=== PATIENT | female | born 1970 | race Caucasian/White ===

== ENCOUNTER 2024-08-01 07:44 | Outpatient (OUT) | payer MEDICARE, SELFPAY ==
--- NOTE | 2024-08-01 08:00 | CA_ITS ---
Patient Name: GILBERTO PAYAN MR#: [id number] : 1970 Exam Date: 08/01/2024 Ordering Doctor: DR. ZHANNA SALES M.D. ECHOCARDIOGRAM REPORT PROCEDURE: CA ECHO DOPPLER COMPLETE INDICATIONS: Dyspnea on exertion, pacemaker, hypertension, COPD COMPARISON: None. DESCRIPTION: COMPLETE ECHOCARDIOGRAM Real-time transthoracic echocardiography with 2D, M-mode, spectral and color flow Doppler performed. QUALITY: Technical quality was good. LEFT VENTRICLE: Normal chamber size. Normal left ventricular wall thickness. Normal systolic function. LV EF: Normal left ventricular ejection fraction, (55%). DIASTOLIC: Normal diastolic function. ATRIAL SEPTUM: Visually appears intact. LEFT ATRIUM: Normal chamber size. RIGHT ATRIUM: Normal chamber size. RIGHT VENTRICLE: Mildly dilated. Normal systolic function. Pacer wire present. TRICUSPID VALVE: Normal mobility and thickness. No stenosis with mild regurgitation. No evidence of pulmonary hypertension. RVSP 26 mmHg MITRAL VALVE: Normal mobility and thickness. No evidence of mitral valve stenosis. There is no mitral annular calcification. Trivial mitral regurgitation. AORTIC VALVE: Normal trileaflet appearance. No visible sclerosis. Normal leaflet mobility. No evidence of aortic valve stenosis. No aortic regurgitation. AORTIC ROOT: Normal diameter and appearance, measuring 3.0 cm. Ascending aorta is normal in size, measuring 2.6 cm. PULMONIC VALVE: Normal thickness and mobility. No stenosis. Trivial regurgitation. PERICARDIUM: No evidence of pericardial effusion. IVC: IVC is normal in size, does not fully collapse. PLEURA: CONCLUSION: 1. Normal left ventricular size and systolic function. Estimated LVEF is 55%. 2. Mildly dilated right ventricle with normal systolic function. 3. Mild tricuspid regurgitation. 4. Normal right-sided pressures. Adult Echocardiography Procedure Report Left Ventricle LVEDD (3.7 - 5.6 cm): 3.93 cm LVESD (2.2 - 4.0 cm): 2.54 cm LVIVS thickness (0.6 - 1.2 cm): 0.96 cm LVPW thickness (0.5 - 1.0 cm): 0.90 cm e': 0.12 m/s E - e': 5.65 LVOT Max Gradient: 2.59 mm[Hg] LVOT Area (cm2): 0.80 m/s Peak Velocity (LVOT): 0.80 m/s Mean Velocity (LVOT): 0.54 m/s LVOT Diameter 1.89 cm Left Atrium LA Volume Index (2D A2C): 18.75 ml/m2 Left Atrium Systolic Dimension: 3.17 cm Mitral Valve MV E to A Ratio: 1.14 Mitral Valve A-Wave Peak Velocity: 0.57 m/s Mitral Valve E-Wave Peak Velocity: 0.65 m/s Right Ventricle Aorta AO Root Diam: 3.05 cm Ascending Ao Diam: 2.60 cm Aortic Valve AoV Area (Peak Brad): 2.29 cm2, 2.29 cm2 AoV Area (VTI): 2.04 cm2, 2.04 cm2 Peak Velocity(Antegrade Flow): 0.98 m/s Peak Gradient(Antegrade Flow): 3.87 mm[Hg] Mean Velocity(Antegrade Flow): 0.71 m/s Mean Gradient(Antegrade Flow): 2.23 mm[Hg] Velocity Time Integral: 22.20 cm Tricuspid Valve Peak Velocity (Regurgitant Flow): 2.14 m/s Pulmonic Valve Mean Gradient: 1.46 mm[Hg] Mean Velocity: 0.56 m/s Peak Velocity: 0.85 m/s, 0.83 m/s Peak Gradient: 2.73 mm[Hg], 2.91 mm[Hg] Right Atrium Right Atrium Systolic Pressure: 42.02 ml, 42.02 ml Dictated by: Joel Cason M.D. on 08/01/2024 at 19:32 Approved by: Joel Cason M.D. on 08/01/2024 at 19:36
== END 2024-08-01 07:45 | disposition home or self-care (01) ==
LOC: CARD 07:44
PROVIDERS: PCP Nurse Practitioner Family; Visit Provider Internal Medicine Cardiovascular Disease
DX: R06.09 Other forms of dyspnea (principal)
CPT/HCPCS: 93306

== ENCOUNTER 2024-08-08 09:14 | Outpatient (OUT) | payer MEDICARE, SELFPAY ==
--- OUTSIDE RECORDS SUMMARY | 2024-08-08 09:33 | XMS_ITS | CCD ---
Author Organization [facility] Inform ion Partnership [facility] Care Team Providers Care Professional Services Consultant Name Role Phone Jhoana Macias Attending Unavailable Dominic Donnelly Primary Care Provider [phone] LJ PATEL Referring Unavailable DOMINIC DONNELLY Primary Care Unavailable MCKAYLA, EUGENE S Admitting Unavailable MCKAYLA, EUGENE S Attending Unavailable DOMINIC DONNELLY Primary Care Unavailable DOMINIC DONNELLY Primary Care Unavailable ARIELLE REED Attending Unavailable ARIELLE REED Admitting Unavailable DOMINIC DONNELLY Referring Unavailable BIBI, DR ALFARO Primary Care Unavailable REINECK, DR CHANG Hawkins Admitting Unavailabl e REINECK, DR CHANG Hawkins Attending Unavailabl e [place] ., ZAFAR NOLASCO Consulting Unavailabl e ISMAEL MOYER Consulting Unavailable MCKAYLA, EUGENE S Referring Unavailable PCP, NOT IN SYSTEM Primary Care Unavailable MCKAYLA, EUGENE S Referring Unavailable PCP, NOT IN SYSTEM Primary Care Unavailable Shani Gama DO G Unavailable Marietta Ruvalcaba MD Primary Care Provider Jaqueline Yost NP Unavailable Pcp, Not In System Primary Care Provider Unavail able PCP, NOT IN SYSTEM Primary Care Unavailable AMINA BETTS Attending Unavailable PCP, NOT IN SYSTEM Primary Care Unavailable Dominic Donnelly Primary Care Provider JIMBO OZUNA Attending Unavailable JIMBO OZUNA Referring Unavailable DOMINIC DONNELLY Primary Care Unavailabl e Lanette LAIRD Shani G Unavailable ZHANNA SALES Attending Unavailable JAQUELINE YOST Attending Unavailab JAQUELINE Pham Attending UnavailJAQUELINE Watts Referring JAQUELINE Cruz Attending [place] Allergies Allergy Classification Reported Allergen(s) Allergy Type Date of Onset Reaction(s) Facility (1 source) 06667,00; Translations: [47987,00] Propensity to adverse reactions (disorder) 9 [facility] Repository (4 sources) Vancomycin; Translations: [VANCOMYCIN HCL] Drug Allergy 2 Rash [facility] Repository (11 sources) Vancomycin Drug Allergy 2 Rash [facility] Medications Current Medications Medication Drug Class(es) Dates Sig (Normalized) Sig (Original) acetaminophen 325 mg / HYDROcodone bitartrate 5 mg oral tablet (4 sources) Opioid Agonist Start: 06-09-2020 End: 06-12-2020 take 1 tablet by mouth every six hours as needed for pain HYDROcodone-aceta minophen (NORCO) 5-325 MG per tablet Indications: Post-operative pain Take 1 tablet by mouth every 6 hours as needed for Pain for up to [address] Alex 12 tablet 0 06/09/2020 06/12/2020 Active Start: 06-09-2020 End: 06-09-2020 HYDROcodone-acetaminophen (N ORCO) 5-325 MG per tablet 1 tablet Start: 05-27-2020 End: 06-09-2020 HYDROcodone-acetaminophen (N ORCO) 5-[address] Alex 0 05/27/2020 06/09/2020 Discontinued (REORDER) amLODIPine 5 mg oral tablet (11 sources) Dihydropyridine Calcium Channel Eliseo Start: 11-15-2022 amLODIPine (Norvasc) 5 MG tablet 11/15/2022 Active atropine sulfate 0.025 mg / diphenoxylate hydrochloride 2.5 mg oral tablet (16 sources) Anticholinergic, Cholinergic Muscarinic Antagonist, Antidiarrheal Start: 02-26-2012 take 2 tablets by mouth every six hours as needed diphenoxylate-at ropine (LOMOTIL) 2.5-0.025 mg per tablet Take 2 tablets by mouth four times daily as needed. 240 tablet 4 02/26/2012 Active Start: 02-26-2012 End: 06-04-2020 take 2 tablets by mouth once diphenoxylate-atropine (LOMOTIL) 2.5-0.025 MG per tablet Take 2 tablets by mouth. 0 02/26/2012 06/04/2020 Discontinued (Therapy completed) 60 actuat budesonide 0.16 mg/actuat / formoterol fumarate 0.0045 mg/actuat metered dose inhaler (13 sources) Corticosteroid, beta2-Adrenergic Agonist budesonide-form oterol (Symbicort) 160-4.5 MCG/ACT inhaler Inhale 2 puffs. Active take 2 puff(s) by in halation twice daily as needed budesonide-formoterol (SYMBICORT) 160-4. 5 MCG/ACT AERO Inhale 2 puffs into the lungs [address] Donnelly 0 Active calcium chloride 0.0014 meq/ml / potassium chloride 0.004 meq/ml / sodium chloride 0.103 meq/ml / sodium lactate 0.028 meq/ml injectable solution (2 sources) Start: 06-09-2020 lactated ringers infusion cholecalciferol 0.05 mg oral capsule (13 sources) Vitamin D Start: 04-05-2023 End: 04-04-2024 take 1 capsule by mouth every week Cholecalciferol (Vitamin D) 50 MCG (2000 UT) capsule Indications: Vitamin D deficiency Take 1 capsule (50 mcg) by mouth 1 (one) time per week 14 capsule 3 03/12/2024 Active Cimetidine (2 sources) Histamine-2 Receptor Antagonist Cimetidine (TAGAMET PO) Take by mouth Prn otc rarely takes 0 Active ciprofloxacin 500 mg oral tablet (1 source) Quinolone Antimicrobial Start: 06-09-2020 End: 06-12-2020 take 1 tablet by mouth twice daily ciprofloxacin (CIPRO) 500 MG tablet Take 1 tablet by mouth 2 times daily for 3 days 6 tablet 0 06/09/2020 06/12/2020 Active 2 ml fentaNYL 0.05 mg/ml injection (2 sources) Opioid Agonist Start: 06-09-2020 End: 06-09-2020 fentaNYL (SUBLIMAZE) injection 25 mcg hydroCHLOROthiazide 12.5 mg oral tablet (11 sources) Thiazide Diuretic take 1 tablet by mouth in the morning hydroCHLOROthiazide (HYDRODiuril) 12.5 MG tablet Take 1 tablet by mouth in the morning. Active hydrOXYzine hydrochloride 25 mg oral tablet (1 source) Antihistamine Start: 06-25-2024 take 1 tablet by mouth three times daily as needed for anxiety hydrOXYzine HCl (Atarax) 25 MG tablet Indications: Anxiety Take 1 tablet (25 mg) by mouth 3 (three) times a day as needed for anxiety 21 tablet 06/25/2024 Active ibuprofen 800 mg oral tablet (3 sources) Nonsteroidal Anti-inflammatory Drug Start: 03-12-2015 End: 06-04-2020 ibuprofen (ADVIL,MOTRIN) 800 mg tablet Take 1 tablet (800 mg total) by mouth as needed. 03/12/2015 Active levothyroxine sodium 0.088 mg oral tablet (19 sources) l-Thyroxine Start: 06-27-2024 take 1 tablet by mouth once daily levothyroxine (Synthroid) 88 MCG tablet Indications: Acquired hypothyroidism (CMS/HCC) Take 1 tablet (88 mcg) by mouth Daily Take on an empty stomach 30 tablet 06/27/2024 Active Start: 03-17-2024 End: 06-27-2024 take 1 tablet by mouth before mealtime levothyroxine (Synthroid) 88 MCG tablet Indications: Acquired hypothyroidism (CMS/HCC) Take 1 tablet (88 mcg) by mouth in the morning. Take before meals. 90 tablet 03/17/2024 06/27/2024 Discontinued (Reorder) Start: 04-05-2023 End: 04-04-2024 take 1 tablet by mouth before mealtime levothyroxine (Synthroid) 112 MCG tablet Indications: Acquired hypothyroidism (CMS/HCC) Take 1 tablet (112 mcg) by mouth in the morning. Take before meals. 90 tablet 3 04/05/2023 03/17/2024 Discontinued (Ineffective) Start: 06-16-2014 End: 05-15-2024 levothyroxine (SYNTHROID, LEVOTHROID) 125 MCG tablet Take by mouth. 06/16/2014 05/15/2024 Discontinued (Dose adjustment) Start: 08-24-2008 levothyroxine sodium(SYNTHROID 100 MCG TAB) Take 88 mcg by mouth. 0 08/24/2008 Active 10 ml lidocaine hydrochloride 10 mg/ml injection (1 source) Antiarrhythmic, Amide Local Anesthetic Start: 06-09-2020 End: 06-09-2020 lidocaine PF 1 % injection 1 mL lisinopril 10 mg oral tablet (11 sources) Angiotensin Converting Enzyme Inhibitor lisinopril 10 MG tablet 1 (one) time each day at the same time. Active 1 ml meperidine hydrochloride 50 mg/ml injection (1 source) Opioid Agonist Start: 06-09-2020 meperidine (DEMEROL) injection 12.5 mg 24 hr metoprolol succinate 25 mg extended release oral tablet (20 sources) beta-Adrenergic Eliseo Start: 05-26-2024 take 1 tablet by mouth once daily metoprolol succinate ER (TOPROL XL) 25 mg 24 hr tablet Take 1 tablet by mouth once daily. 05/26/2024 Active Start: 05-15-2024 End: 05-15-2025 take 4 tablets by mouth every twenty-four hours in the morning metoprolol succinate XL (TOPROL XL) 25 mg 24 hr tablet Take 4 tablets (100 mg total) by mouth in the morning. 360 tablet 3 05/15/2024 05/15/2025 Active Start: 11-15-2022 End: 05-26-2024 take 1 tablet by mouth in the morning metoprolol tartrate (Lopressor) 100 MG tablet Take 100 mg by mouth in the morning. 11/15/2022 Active Start: 06-10-2015 End: 06-04-2020 metoprolol (LOPRESSOR) 100 M G tablet Start: 08-24-2008 End: 05-26-2024 metoprolol succinate(TOPROL XL 100 MG 24 HR TAB) take 1 tablet 2 times daily. 0 08/24/2008 05/26/2024 Discontinued omeprazole 40 mg delayed release oral capsule (16 sources) Proton Pump Inhibitor Start: 04-04-2023 take 1 capsule by mouth before mealtime omeprazole (PriLOSEC) [address] capsule Indications: Gastroesophageal reflux disease, unspecified whether esophagitis present Take 1 capsule (40 mg) by mouth in the morning. Take before meals. Do not crush or chew. . 90 capsule 3 04/04/2023 Active Start: 04-04-2023 End: 05-26-2024 take 1 capsule by mouth before mealtime omeprazole (PriLOSEC) [address] capsule Indications: Gastroesophageal reflux disease, unspecified whether esophagitis present Take 1 capsule (40 mg) by mouth in the morning. Take before meals. Do not crush or chew. . 90 capsule 3 04/04/2023 Active ondansetron 4 mg disintegrating oral tablet (11 sources) Serotonin-3 Receptor Antagonist Start: 07-05-2022 ondansetron ODT (Zofran-ODT) 4 MG disintegrating tablet 07/05/2022 Active rosuvastatin calcium 10 mg oral tablet (13 sources) HMG-CoA Reductase Inhibitor Start: 11-15-2022 End: 05-15-2024 take 1 tablet by mouth in the morning rosuvastatin (Crestor) 10 MG tablet Take 10 mg by mouth in the morning. 11/15/2022 Active 72 hr scopolamine 0.0139 mg/hr transdermal system (1 source) Anticholinergic Start: 06-09-2020 scopolamine (TRANSDERM-SCOP) transdermal patch 1 patch 3 ml sodium chloride 9 mg/ml injection (2 sources) Start: 06-09-2020 sodium chloride flush 0.9 % injection 10 mL sucralfate 1000 mg oral tablet (9 sources) Aluminum Complex Start: 05-01-2024 take 1 tablet by mouth at bedtime sucralfate (Carafate) 1 g tablet Indications: History of stomach ulcers Take 1 tablet (1 g) by mouth in the morning and 1 tablet (1 g) at noon and 1 tablet (1 g) in the evening and 1 tablet (1 g) before bedtime. Take before meals. 120 tablet 11 05/01/2024 Active tamsulosin hydrochloride 0.4 mg oral capsule (2 sources) alpha-Adrenergic Eliseo Start: 05-27-2020 tamsulosin (FLOMAX) 0.[address] Alex 0 05/27/2020 Active terbinafine 250 mg oral tablet (12 sources) Allylamine Antifungal Start: 03-19-2023 take 1 tablet by mouth once daily terbinafine (LamISIL) 250 MG tablet Indications: Onychomycosis Take 1 tablet, by mouth, once daily 90 tablet 03/19/2023 Active Start: 05-17-2015 End: 06-04-2020 terbinafine (LAMISIL) 250 MG tablet Completed/Discontinued Medications Medication Drug Class(es) Dates Sig (Normalized) Sig (Original) amitriptyline hydrochloride 25 mg oral tablet (3 sources) Tricyclic Antidepressant Start: 02-26-2012 End: 05-26-2024 take 1 tablet by mouth once daily at bedtime amitriptyline 25 mg tablet Take 1 tablet by mouth daily at bedtime. 30 tablet 5 02/26/2012 05/26/2024 Discontinued cyclobenzaprine hydrochloride 10 mg oral tablet (1 source) Muscle Relaxant Start: 06-17-2015 End: 06-04-2020 cyclobenzaprine (FLEXERIL) 10 MG tablet esomeprazole 40 mg delayed release oral capsule (2 sources) Proton Pump Inhibitor Start: 10-26-2008 End: 05-26-2024 take 1 capsule by mouth twice daily esomeprazole mag trihydrate(NEXIUM 40 MG CAP) Take one(1) capsule po twice daily 60 5 10/26/2008 05/26/2024 Discontinued famotidine 20 mg oral tablet (3 sources) Histamine-2 Receptor Antagonist Start: 08-24-2008 End: 05-26-2024 famotidine(PEPCID 20 MG TAB) Take one(1) tablet daily. 0 08/24/2008 05/26/2024 Discontinued 2 ml midazolam 1 mg/ml injection (1 source) Benzodiazepine Start: 06-09-2020 End: 06-09-2020 midazolam PF (VERSED) injection 1 mg 24 hr oxybutynin chloride 10 mg extended release oral tablet (1 source) Cholinergic Muscarinic Antagonist Start: 08-31-2014 End: 06-04-2020 take 1 tablet by mouth once daily oxybutynin (DITROPAN-XL) 10 MG CR tablet Indications: Nocturia , Urgency of urination , Frequency of urination Take 1 tablet by mouth daily. 30 tablet 6 08/31/2014 06/04/2020 Discontinued raNITIdine 150 mg oral tablet (5 sources) Histamine-2 Receptor Antagonist End: 05-15-2024 take 1 tablet by mouth in the morning, then take 1 tablet by mouth at bedtime raNITIdine (ZANTAC) 150 mg tablet Take 1 tablet (150 mg total) by mouth in the morning and 1 tablet (150 mg total) before bedtime. 05/15/2024 Discontinued (Alternate therapy) End: 03-12-2024 raNITIdine HCl (ZANTAC 75 PO ) Take by mouth. 03/12/2024 Discontinued (Therapy completed) raNITIdine HCl ( ZANTAC 75 PO) Take by mouth. Active Problems Active Problems Problem Classification Problem Date Documented Da te Episodic/Chronic Calculus of urinary tract (1 source) Calculus of kidney; Translations: [Calculus of kidney] Onset: 4 Episodic Cardiac dysrhythmias (20 sources) Sick sinus syndrome; Translations: [Sick sinus syndrome] Onset: 2 01-10-2023 Chronic Cardiac dysrhythmias (2 sources) Palpitations; Translations: [Palpitations] Onset: 5 Episodic Chronic obstructive pulmonary disease and bronchiectasis (20 sources) Acute exacerbation of bronchiectasis; Translations: [Bronchiectasis with (acute) exacerbation] Onset: 1 Resolved: 4 01-10-2023 Chronic Conduction disorders (20 sources) Presence of cardiac pacemaker; Translations: [Pacemaker battery depletion] Onset: 2 01-10-2023 Chronic Disorders of lipid metabolism (20 sources) Dyslipidemia; Translations: [Hyperlipidemia, unspecified] Onset: 1 01-10-2023 Chronic Esophageal disorders (18 sources) Gastroesophageal reflux disease; Translations: [Gastro-esophageal reflux disease without esophagitis] Onset: 6 01-10-2023 Chronic Essential hypertension (20 sources) Essential hypertension; Translations: [Essential (primary) hypertension] Onset: 3 01-10-2023 Chronic Fever of unknown origin (4 sources) Fever, unspecified; Translations: [FEVER UNSPECIFIED] Onset: 3 Episodic Gastroduodenal ulcer (except hemorrhage) (2 sources) H/O: gastric ulcer; Translations: [Personal history of peptic ulcer disease] 05-01-2024 Episodic Headache; including migraine (13 sources) Migraine without aura, not refractory ; Translations: [Migraine without aura, not intractable, without status migrainosus] Onset: 7 01-10-2023 Chronic Miscellaneous mental health disorders (6 sources) Bulimia nervosa; Translations: [Bulimia] 05-01-2024 Chronic Mood disorders (13 sources) Depressive disorder; Translations: [Depressive disorder] Onset: 3 01-10-2023 Chronic Nonspecific chest pain (1 source) Chest pain Onset: 4 Episodic Nutritional deficiencies (13 sources) Vitamin D deficiency; Translations: [Vitamin D deficiency, unspecified] Onset: 2 01-10-2023 Chronic Other diseases of kidney and ureters (13 sources) Renal mass; Translations: [Other specified disorders of kidney and ureter] Onset: 3 01-10-2023 Chronic Other gastrointestinal disorders (2 sources) Abdominal bloating; Translations: [Abdominal distension (gaseous)] 05-26-2024 Episodic Other gastrointestinal disorders (1 source) Abdominal distension (gaseous); Translations: [Bloating] Onset: 5 Episodic Other lower respiratory disease (2 sources) Other forms of dyspnea; Translations: [Other forms of dyspnea] Onset: 5 Episodic Other nervous system disorders (13 sources) Chronic pain; Translations: [Other chronic pain] Onset: 9 01-10-2023 Chronic Other nervous system disorders (1 source) Postoperative pain ; Translations: [Post-operative pain] Episodic Residual codes; unclassified (11 sources) Sleep apnea; Translations: [Sleep apnea, unspecified] Onset: 1 01-10-2023 Chronic Residual codes; unclassified (2 sources) Obstructive sleep apnea syndrome; Translations: [Obstructive sleep apnea (adult) (pediatric)] 03-12-2024 Chronic Residual codes; unclassified (2 sources) Sleep apnea, unspecified; Translations: [Sleep apnea, unspecified] Onset: 3 Chronic Residual codes; unclassified (2 sources) History of excision of intestinal structure; Translations: [Acquired absence of other specified parts of digestive tract] 03-12-2024 Episodic Spondylosis; intervertebral disc disorders; other back problems (15 sources) Prolapsed thoracic intervertebral disc; Translations: [Other intervertebral disc displacement, thoracic region] Onset: 9 01-10-2023 Chronic Substance-related disorders (20 sources) Light cigarette smoker; Translations: [Nicotine dependence, cigarettes, uncomplicated] Onset: 1 Resolved: 4 01-10-2023 Chronic Thyroid disorders (18 sources) Acquired hypothyroidism; Translations: [Hypothyroidism, unspecified] Onset: 7 01-10-2023 Chronic Unclassified (1 source) Patient encounter status; Translations: [Preoperative testing] Unclassified (1 source) Device Check Onset: 4 Unclassified (1 source) Med Refill Onset: 4 Urinary tract infections (1 source) Urinary tract infection, site not specified; Translations: [UTI SITE NOT SPECIFIED] Onset: 3 Episodic Viral infection (1 source) COVID-19; Translations: [COVID-19] Onset: 3 Past or Other Problems Problem Classification Problem Date Documented Da te Episodic/Chronic Abdominal pain (19 sources) Abdominal pain; Translations: [Unspecified abdominal pain] Onset: 2 08-31-2014 Episodic Acute bronchitis (11 sources) Acute bronchitis; Translations: [Acute bronchitis, unspecified] Onset: 2 Resolved: 4 01-10-2023 Episodic Bacterial infection; unspecified site (20 sources) History of methicillin resistant Staphylococcus aureus infection; Translations: [Personal history of Methicillin resistant Staphylococcus aureus infection] Onset: 9 Resolved: 4 01-10-2023 Episodic Blindness and vision defects (13 sources) Visual hallucinations; Translations: [Visual hallucinations] Onset: 3 01-10-2023 Episodic Complication of device; implant or graft (11 sources) Pain; Translations: [Pain due to cardiac prosthetic devices, implants and grafts, initial encounter] Onset: 3 Resolved: 4 01-10-2023 Episodic Fluid and electrolyte disorders (11 sources) Hypokalemia; Translations: [Hypokalemia] Onset: 4 Resolved: 4 01-10-2023 Episodic Headache; including migraine (11 sources) Headache; Translations: [Headache] Onset: 3 Resolved: 4 01-10-2023 Episodic Lymphadenitis (11 sources) Lymphadenopathy; Translations: [Generalized enlarged lymph nodes] Onset: 1 Resolved: 4 01-10-2023 Episodic Malaise and fatigue (13 sources) Fatigue; Translations: [Other fatigue] Onset: 3 01-10-2023 Episodic Nausea and vomiting (13 sources) Nausea and vomiting; Translations: [Nausea with vomiting, unspecified] Onset: 3 01-10-2023 Episodic Other connective tissue disease (11 sources) Pain in limb; Translations: [Pain in unspecified limb] Onset: 3 Resolved: 4 01-10-2023 Episodic Other diseases of kidney and ureters (13 sources) Acquired renal cystic disease; Translations: [Cyst of kidney, acquired] Onset: 1 01-10-2023 Episodic Other gastrointestinal disorders (17 sources) Diarrhea; Translations: [Diarrhea, unspecified] Onset: 2 08-31-2014 Episodic Other lower respiratory disease (11 sources) Hypoxemia; Translations: [Hypoxemia] Onset: 1 Resolved: 4 01-10-2023 Episodic Other nervous system disorders (11 sources) Difficulty walking; Translations: [Difficulty in walking, not elsewhere classified] Onset: 3 Resolved: 4 01-10-2023 Chronic Other nervous system disorders (11 sources) Walking disability; Translations: [Difficulty in walking, not elsewhere classified] Onset: 7 Resolved: 4 01-10-2023 Chronic Other nutritional; endocrine; and metabolic disorders (15 sources) Weight loss; Translations: [Abnormal weight loss] Onset: 2 Resolved: 4 08-31-2014 Episodic Other nutritional; endocrine; and metabolic disorders (11 sources) Loss of appetite; Translations: [Anorexia] Onset: 1 Resolved: 4 01-10-2023 Episodic Other skin disorders (13 sources) Localized swelling, mass and lump, right upper limb; Translations: [Localized superficial swelling, mass, or lump] Onset: 3 Resolved: 4 01-10-2023 Episodic Other upper respiratory infections (11 sources) Acute recurrent maxillary sinusitis; Translations: [Acute maxillary sinusitis] Onset: 7 Resolved: 4 01-10-2023 Episodic Residual codes; unclassified (13 sources) Family history of endocrine disorders; Translations: [Family history of other endocrine, nutritional and metabolic diseases] Onset: 1 01-10-2023 Episodic Residual codes; unclassified (15 sources) Family history of breast cancer; Translations: [Family history of malignant neoplasm of breast] Onset: 3 01-10-2023 Episodic Residual codes; unclassified (13 sources) Family history of malignant neoplasm of gastrointestinal tract; Translations: [Family history of malignant neoplasm of digestive organs] Onset: 7 01-10-2023 Episodic Syncope (11 sources) Syncope and collapse; Translations: [Syncope and collapse] Onset: 1 Resolved: 4 01-10-2023 Episodic Unclassified (2 sources) History of excision of intestinal structure 03-12-2024 Results Test Name Value Interpretation Reference Range Facility 36on 07-30-2024 36 Patient called with BP readings: 134/71 (AM) 148/85 (PM) 118/76 (AM) 140/79 (PM) 123/79 (AM) 136/82 (PM) 123/72 (AM) 126/78 (PM) 125/79 (AM) 144/87 (PM) 164/97 She said HR ranges between 92-109. Normal [facility] Follow-Upon 07-21-2024 Follow-Up [id number] Gilberto Payan 1970 F Date Provider Department Center 07/21/2024 [id number] SALES IRVIN [facility] Family History Problem Relation Age of Onset Heart disease Mother Thyroid nodules Mother Atrial fibrillation Mother Diabetes Father Family Status - Relation Status Age at Mother Father Level of Service:94318 [place] OFFICE/OUTPATIENT NEW MODERATE MDM 45 MINUTES Reason for Visit and Comments: Hypertension [721327] - Says BP has been elevated lately. Had routine labs with lipid panel in Feb 2024. SSS [Other] - PPM was interrogated in Apr 2024 at [facility]. Shortness of Breath [160870] - ONLY with exertion, which in worsening. Muscle Pain [403854] - C/o LE muscle cramps at night. Normal [facility] XR ABDOMEN 2 VIEWon 03-12-20 24 XR ABDOMEN 2 VIEW EXAM: XR Abdomen, Four Views. REASON FOR EXAM: Bloating with abomen pain. COMPARISON: None FINDINGS: Four images. Postprocedural changes of the lower chest. No free air under the hemidiaphragm or organomegaly. Cholecystectomy clips in the right upper quadrant. Postsurgical clips throughout the abdomen. Moderate amount stool present throughout the course of the colon. No small bowel dilatation or definite mass effect. Distal gas is present. Degenerative changes of the spine. There is diffuse atherosclerosis. Bone island or soft tissue calcification over the right side of the sacrum. IMPRESSION: 1. Nonobstructive bowel gas pattern. 2. Moderate amount stool in the right colon. 3. Status post cholecystectomy. 4. Postoperative changes throughout the abdomen. This report is generated using voice recognition reporting ([employer]). On occasion, [employer] erroneously drops words from the report or replaces the spoken word with a similar sounding word. Please call with any questions/concerns regarding the report. Dictated and transcribed 03/12/2024/tm This report has been electronically signed and approved by the interpreting radiologist. Electronically Signed Josh Raya II, M.D. 2024-03-12 16:30:20 Normal Not Available URINE CULTUREon 09-19-2023 Bacteria identified Cx Nom (U) CULTURE RESULTS NO GROWTH AT <1000 CFU/mL Normal [facility] Comment on above: Performed By: #### 6 30-4 #### [facility] ([id number]) [address] [place] [address], [address] [place] [address] XR ABDOMEN AP 1 VWon 024 XR ABDOMEN AP 1 VW XR ABDOMEN AP 1 VW Abdomen single view Clinical history: Kidney stone Impression: * Appropriate bowel pattern. No acute findings. Equivocal 3 mm stone projecting to the right of L4 vertebra. No other definite urinary tract stone identified compared with November 23, 2015 Finalized by Anurag Gallardo MD on 09/19/2023 5:28 PM Normal [facility] CBC AUTO DIFFon 07-05-2022 BASO # 0.0 103/ul Normal 0.0-0.1 [facility] Comment on above: Performed By: #### I NFLUAB #### [facility] [address] [address] [address] Leisa Oakes Basophils/100 WBC (Bld) 0.3 % Normal 0.2-2.0 [facility] Comment on above: Performed By: #### I NFLUAB #### [facility] [address] [place] [address] Dr. Leisa Oakes EO # 0.0 103/ul Normal 0.0-0.7 [facility] Comment on above: Performed By: #### I NFLUAB #### [facility] [address] [place] [address] Dr. Leisa Oakes Eosinophils/100 WBC (Bld) 0.3 % Critically low 0.9-7.0 [facility] Comment on above: Performed By: #### I NFLUAB #### [facility] [address] [place] [address] Dr. Leisa Oakes Erythrocyte distribution width (RBC) [Ratio] 11.8 % Normal 11.0-15.0 [facility] Comment on above: Performed By: #### I NFLUAB #### [facility] [address] [place] [address] Dr. Leisa Oakes Hematocrit (Bld) [Volume fraction] 39.1 % Normal 36.0-48.0 [facility] Comment on above: Performed By: #### I NFLUAB #### [facility] [address] [place] [address] Dr. Leisa Oakes Hemoglobin (Bld) [Mass/Vol] 12.9 g/dL Normal 12.0-16.0 [facility] Comment on above: Performed By: #### I NFLUAB #### [facility] [address] [place] [address] Dr. Leisa Oakes IG # 0.01 10e3/ul Normal 0.00-0.03 [facility] Comment on above: Performed By: #### I NFLUAB #### [facility] [address] [place] [address] Dr. Leisa Oakes IG % 0.3 % Normal 0.0-0.5 [facility] Comment on above: Performed By: #### I NFLUAB #### [facility] [address] [place] [address] Dr. Leisa Oakes LYMPH # 0.3 103/ul Critically low 1.2-3.8 [facility] Comment on above: Performed By: #### I NFLUAB #### [facility] [address] [place] [address] Dr. Leisa Oakes Lymphocytes/100 WBC (Bld) 10.5 % Critically low 20.5-60.0 [facility] Comment on above: Performed By: #### I NFLUAB #### [facility] [address] [place] [address] Dr. Leisa Oakes MANUAL DIFF REQ NO Normal [facility] Comment on above: Performed By: #### I NFLUAB #### [facility] [address] [place] [address] Dr. Leisa Oakes MCH (RBC) [Entitic mass] 31.3 pg Normal 26.7-34.0 [facility] Comment on above: Performed By: #### I NFLUAB #### [facility] [address] [place] [address] Dr. Leisa Oakes MCHC (RBC) [Mass/Vol] 33.0 g/dL Normal 29.9-35.2 [facility] Comment on above: Performed By: #### I NFLUAB #### [facility] [address] [place] [address] Dr. Leisa Oakes MCV (RBC) [Entitic vol] 94.9 fL Normal 81.0-99.0 [facility] Comment on above: Performed By: #### I NFLUAB #### [facility] [address] [place] [address] Dr. Leisa Oakes MONO # 0.4 103/ul Normal 0.3-0.8 [facility] Comment on above: Performed By: #### I NFLUAB #### [facility] [address] [place] [address] Dr. Leisa Oakes Monocytes/100 WBC (Bld) 12.7 % Critically high 1.7-12.0 [facility] Comment on above: Performed By: #### I NFLUAB #### [facility] [address] [place] [address] Dr. Leisa Oakes NEUT # 2.3 103/ul Normal 1.4-6.5 [facility] Comment on above: Performed By: #### I NFLUAB #### [facility] [address] [place] [address] Dr. Leisa Oakes Neutrophils/100 WBC (Bld) 75.9 % Critically high 43.0-75.0 [facility] Comment on above: Performed By: #### I NFLUAB #### [facility] [address] [place] [address] Dr. Leisa Oakes Platelet mean volume (Bld) [Entitic vol] 9.5 fL Normal 9.5-13.5 [facility] Comment on above: Performed By: #### I NFLUAB #### [facility] [address] [place] [address] Dr. Leisa Oakes PLT 196 103/ul Normal 150-450 [facility] Comment on above: Performed By: #### I NFLUAB #### [facility] [address] [place] [address] Dr. Leisa Oakes RBC 4.12 106/ul Critically low 4.20-5.40 [facility] Comment on above: Performed By: #### I NFLUAB #### [facility] [address] [place] [address] Dr. Leisa Oakes WBC 3.1 103/ul Critically low 4.0-11.0 [facility] Comment on above: Performed By: #### I NFLUAB #### [facility] [address] [place] [address] Dr. Leisa Oakes CULTURE BLOODon 07-05-2022 Microscopic examination of blood, culture Culture Observations: NO GROWTH AT 5 DAYS. Isolate 1 [id number] Normal [facility] Comment on above: Performed By: #### I NFLUAB #### [facility] [address] [place] [address] Dr. Leisa Oakes Microscopic examination of blood, culture Culture Observations: NO GROWTH AT 5 DAYS. Normal [facility] Comment on above: Performed By: #### B [id number] #### [facility] [address] [place] [address] Dr. Leisa Oakes CULTURE URINEon 07-05-2022 CULTURE URINE Culture Observations : LIGHT GROWTH OF MIXED GENITAL DAVIAN. NO POTENTIAL PATHOGENS SEEN. Normal [facility] Comment on above: Performed By: #### I NFLUAB #### [facility] [address] [place] [address] Dr. Leisa Oakes Covid-19 PCR ([facility])on 06-21 SARS-CoV-2 (COVID-19) RNA JOE+probe Ql (Unsp spec) Detected Abnormal NOT DETECTED [facility] Comment on above: Result Comment: This test is not yet approved or cleared by the [place] FDA. When there are no FDA-approved or cleared tests available, and other criteria are met, FDA can make tests available under an emergency access mechanism called an Emergency Use Authorization (EUA). The EUA for this test is supported by the Dialysis Patient Care Technician of Health and Human Service's declaration that circumstances exist to justify the emergency use of in vitro diagnostics for the detection and/or diagnosis of the virus that causes COVID-19. This EUA will remain in effect for the duration of the COVID-19 declaration justifying emergency of IVDs, unless it is terminated or revoked by the FDA (after which the test may no longer be used). Performed By: #### C VDTBH #### [facility] [address] [place] [address] Dr. Leisa Oakes ER URINE PROFILEon 3 Bilirubin Ql (U) Negative Normal NEGATIVE [facility] Comment on above: Performed By: #### U MICRO, ERUR #### [facility] [address] [place] [address] Dr. Leisa Oakes Clarity (U) CLEAR Normal CLEAR [facility] Comment on above: Performed By: #### U MICRO, ERUR #### [facility] [address] [place] [address] Dr. Leisa Oakes Color (U) LT. YELLOW Normal YELLOW [facility] Comment on above: Performed By: #### U MICRO, ERUR #### [facility] [address] [place] [address] Dr. Leisa Oakes ERUAHD A micrscopic examination will be performed if indicated. Normal [facility] Comment on above: Performed By: #### U MICRO, ERUR #### [facility] [address] [address] [address] Leisa Oakes Glucose Ql (U) Negative Normal NEGATIVE [facility] Comment on above: Performed By: #### U MICRO, ERUR #### [facility] [address] [address] [address] Leisa Oakes Hemoglobin Ql (U) Negative Normal NEGATIVE [facility] Comment on above: Performed By: #### U MICRO, ERUR #### [facility] [address] [address] [address] Leisa aOkes Ketones Ql (U) Negative Normal NEGATIVE [facility] Comment on above: Performed By: #### U MICRO, ERUR #### [facility] [address] [place] [address] Dr. Leisa Oakes LEUKOCYTES TRACE Abnormal NEGATIVE [facility] Comment on above: Performed By: #### U MICRO, ERUR #### [facility] [address] [address] [address] Leisa Oakes Nitrite Ql (U) Negative Normal NEGATIVE [facility] Comment on above: Performed By: #### U MICRO, ERUR #### [facility] [address] [place] [address] Dr. Leisa Oakes pH (U) 5.5 [pH] Normal 5-9 [facility] Comment on above: Performed By: #### U MICRO, ERUR #### [facility] [address] [address] [address] Leisa Oakes SPEC GRAVITY 1.010 Normal 1.005-<=1.025 [facility] Comment on above: Performed By: #### U MICRO, ERUR #### [facility] [address] [address] [address] Leisa Oakes UA PROTEIN Negative Normal NEGATIVE/ TRACE [facility] Comment on above: Performed By: #### U MICRO, ERUR #### [facility] [address] [address] [address] Leisa Oakes UR MICRO IND INDICATED Normal [facility] Comment on above: Performed By: #### U MICRO, ERUR #### [facility] [address] [place] [address] Dr. Leisa Oakes Urobilinogen Qn (U) 0.2 {Amy'U}/dL Normal 0.2 - 1. 0 [facility] Comment on above: Performed By: #### U MICRO, ERUR #### [facility] [address] [place] [address] Dr. Leisa Okaes INFLUENZA A AND B AGon 07-05 INFLUANEGH SEE BELOW Normal [facility] Comment on above: Result Comment: Nega tive for Flu A protein angiten. Infection due to Flu A cannot be ruled out. Flu A angiten in the sample may be below the detection limit of the test. Performed By: #### I NFLUAB #### [facility] [address] [place] [address] Dr. Leisa Oakes INFLUBNEGH SEE BELOW Normal [facility] Comment on above: Result Comment: Nega tive for Flu B protein antigen. Infection due to Flu B cannot be ruled out. Flu B antigen in the sample may be below the detection limit of the test. Performed By: #### I NFLUAB #### [facility] [address] [place] [address] Dr. Leisa Oakes INFLUENZA A AG Negative Normal NEGATIVE SEE COMMENT [facility] Comment on above: Performed By: #### I NFLUAB #### [facility] [address] [place] [address] Dr. Leisa Oakes INFLUENZA B AG Negative Normal NEGATIVE SEE COMMENT [facility] Comment on above: Performed By: #### I NFLUAB #### [facility] [address] [place] [address] Dr. Leisa Oakes LACTATE/LACTIC ACIDon 2022 Lactate [Moles/Vol] 0.8 mmol/L Normal 0.4-1.9 [facility] Comment on above: Performed By: #### L ACT #### [facility] [address] [place] [address] Dr. Leisa Oakes PH VENOUS BLOODon 07-05-2022 PCO2 VENOUS 48.7 mmHg Normal 40.0-52.0 [facility] Comment on above: Performed By: #### P HVEN #### [facility] [address] [place] [address] Dr. Leisa Oakes pH VENOUS 7.358 Normal 7.330-7.430 [facility] Comment on above: Performed By: #### P HVEN #### [facility] [address] [place] [address] Dr. Leisa Oakes PROF 14(COMP METB)on 023 Albumin [Mass/Vol] 4.4 g/dL Normal 3.4-5.0 [facility] Comment on above: Performed By: #### H GLENYS, CMP #### [facility] [address] [place] [address] Dr. Leisa Oakes Albumin/Globulin [Mass ratio] 1.5 {ratio} Normal [facility] Comment on above: Performed By: #### H GLENYS, CMP #### [facility] [address] [place] [address] Dr. Leisa Oakes ALP [Catalytic activity/Vol] 55 U/L Normal 46-116 [facility] Comment on above: Performed By: #### H GLENYS, CMP #### [facility] [address] [place] [address] Dr. Leisa Oakes ALT [Catalytic activity/Vol] 18 U/L Normal 14-59 [facility] Comment on above: Performed By: #### H GLENYS, CMP #### [facility] [address] [place] [address] Dr. Leisa Oakes Anion gap [Moles/Vol] 13.5 mmol/L Normal [facility] Comment on above: Performed By: #### H LUCIANOPN, CMP #### [facility] [address] [place] [address] Dr. Leisa Oakes AST [Catalytic activity/Vol] 16 U/L Normal 15-37 [facility] Comment on above: Performed By: #### H GLENYS, CMP #### [facility] [address] [address] [address] Leisa Oakes Bilirubin [Mass/Vol] 0.3 mg/dL Normal 0.2-1.0 [facility] Comment on above: Performed By: #### H STROPN, CMP #### [facility] [address] [place] [address] Dr. Leisa Oakes Calcium [Mass/Vol] 9.5 mg/dL Normal 8.5-10.1 [facility] Comment on above: Performed By: #### H STROPN, CMP #### [facility] [address] [place] [address] Dr. Leisa Oakes Chloride [Moles/Vol] 103 mmol/L Normal 98-107 [facility] Comment on above: Performed By: #### H STROPN, CMP #### [facility] [address] [place] [address] Dr. Leisa Oakes CO2 [Moles/Vol] 28.9 mmol/L Normal 21.0-32.0 [facility] Comment on above: Performed By: #### H STROPN, CMP #### [facility] [address] [place] [address] Dr. Leisa Oakes Creatinine [Mass/Vol] 0.84 mg/dL Normal 0.55-1.02 [facility] Comment on above: Performed By: #### H STROPN, CMP #### [facility] [address] [place] [address] Dr. Leisa Oakes EGFR-AF LIBYAN >60 Normal >=60 [facility] Comment on above: Performed By: #### H STROPN, CMP #### [facility] [address] [place] [address] Dr. Leisa Oakes EGFR-NON AF LIBYAN >60 Normal >=60 [facility] Comment on above: Performed By: #### H STROPN, CMP #### [facility] [address] [place] [address] Dr. Leisa Oakes Globulin (S) [Mass/Vol] 3.0 g/dL Normal [facility] Comment on above: Performed By: #### H STROPN, CMP #### [facility] [address] [address] [address] Leisa Oakes Glucose [Mass/Vol] 86 mg/dL Normal 74-106 [facility] Comment on above: Performed By: #### H STROPN, CMP #### [facility] [address] [place] [address] Dr. Leisa Oakes Potassium [Moles/Vol] 3.4 mmol/L Critically low 3.5-5.1 [facility] Comment on above: Performed By: #### H STROPN, CMP #### [facility] [address] [place] [address] Dr. Leisa Oakes Protein [Mass/Vol] 7.4 g/dL Normal 6.4-8.2 [facility] Comment on above: Performed By: #### H STROPN, CMP #### [facility] [address] [place] [address] Dr. Leisa Oakes Sodium [Moles/Vol] 142 mmol/L Normal 136-145 [facility] Comment on above: Performed By: #### H STROPN, CMP #### [facility] [address] [address] [address] Leisa Oakes Urea nitrogen [Mass/Vol] 10.0 mg/dL Normal 7.0-18.0 [facility] Comment on above: Performed By: #### H STROPN, CMP #### [facility] [address] [place] [address] Dr. Leisa Oakes Urea nitrogen/Creatinine [Mass ratio] 11.9 mg/mg Normal [facility] Comment on above: Performed By: #### H STROPN, CMP #### [facility] [address] [place] [address] Dr. Leisa Oakes TROPONIN, HIGH SENSITIVITYon 07-05-2022 HSTROP <4.0 Normal 4.0-51.3 [facility] Comment on above: Result Comment: CUT- OFF POINTS HAVE BEEN ESTABLISHED BASED ON THE FOURTH UNIVERSAL DEFINITIONS OF MYOCARDIAL INFARCTION. THE UPPER REFERENCE LIMIT (URL) OF TROPONIN, DEFINED THE 99TH PERCENTILE OF cTnI DISTRIBUTION IN A REFERENCE POPULATION, HAS BEEN CONFIRMED THE DECISION THRESHOLD FOR [place] DIAGNOSIS. Performed By: #### H STROPN, CMP #### [facility] [address] [address] [address] Leisa Oakes URINE MICROSCOPIC ONLYon BACTERIA SMALL Abnormal NONE SEEN [facility] Comment on above: Performed By: #### U MICRO, ERUR #### [facility] [address] [place] [address] Dr. Leisa Oakes Bacteria identified Cx Nom (U) INDICATED Normal [facility] Comment on above: Performed By: #### U MICRO, ERUR #### [facility] [address] [place] [address] Dr. Leisa Oakes CAST NONE SEEN Normal NONE SEEN [facility] Comment on above: Performed By: #### U MICRO, ERUR #### [facility] [address] [place] [address] Dr. Leisa Oakes Crystals LM Nom (Urine sed) NONE SEEN Normal NONE SEEN [facility] Comment on above: Performed By: #### U MICRO, ERUR #### [facility] [address] [place] [address] Dr. Leisa Oakes Epithelial cells LM Ql (Urine sed) FEW Abnormal NONE SEEN /RARE [facility] Comment on above: Performed By: #### U MICRO, ERUR #### [facility] [address] [place] [address] Dr. Leisa Oakes MUCOUS NONE SEEN Normal NONE SEEN [facility] Comment on above: Performed By: #### U MICRO, ERUR #### [facility] [address] [place] [address] Dr. Leisa Oakes RBC NONE SEEN Abnormal 0-2 [facility] Comment on above: Performed By: #### U MICRO, ERUR #### [facility] [address] [address] [address] Leisa Oakes WBC 2-5 Abnormal NONE SEEN [facility] Comment on above: Performed By: #### U MICRO, ERUR #### [facility] [address] [place] [address] Dr. Leisa Oakes XR CHEST 1 Von 07-05-2022 XR CHEST 1 V EXAM: XR CHEST 1 V HISTORY: Fever COMPARISON: 06/14/2015 TECHNIQUE: Single AP view of the chest. FINDINGS: The lungs are clear. No pleural effusion or pneumothorax. The cardiomediastinal silhouette is unremarkable. There is a left chest ICD is present with leads in the right atrium and ventricle. No acute osseous or soft tissue abnormality. IMPRESSION: 1. No acute cardiopulmonary process. Electronically authenticated by: ISMAEL COMFORT Date: 2022-07-05 15:29 Normal [facility] TISSUE TRANSGLUTAMINASE IGA [id number] 10-20-2021 TTG IGA <2 Normal 0-3 [facility] Comment on above: Result Comment: INTE RPRETIVE INFORMATION: Tissue Transglutaminase (tTG) Antibody, IgA 3 U/mL or less: Negative 4-10 U/mL: Weak Positive 11 U/mL or greater: Positive Presence of the tissue transglutaminase (tTG) IgA antibody is associated with glutensensitive enteropathies such as celiac disease and dermatitis herpetiformis. tTG IgA antibody concentrations greater than 40 U/mL usually correlate with results of duodenal biopsies consistent with a diagnosis of celiac disease. For antibody concentrations greater or equal to 4 U/mL but less than or equal to 40 U/mL, additional testing for endomysial (ROSENDO) IgA concentrations may improve the positive predictive value for disease. Performed By: [facility] [address] [place] [id number] Trim Operator: Araceli Maldonado MD CBC W/DIFFon 09-15-2021 ABS IMM GRANS 0.0 10*3/uL Normal 0.0-0.2 [facility] Comment on above: Performed By: #### 5 0103 #### [facility] [address] [facility] [place] [address], [facility] ABS NEUTROPHILS 2.8 10*3/uL Normal 1.6-7.6 [facility] Comment on above: Performed By: #### 5 0103 #### [facility] [address] [place] [address], [facility] Basophils (Bld) [#/Vol] 0.0 10*3/uL Normal 0.0-0.2 [facility] Comment on above: Performed By: #### 5 0103 #### [facility] [address] [place] [address], [facility] Basophils/100 WBC (Bld) 0.4 % Normal 0.0-1.0 [facility] Comment on above: Performed By: #### 5 0103 #### [facility] [address] [place] [address], [facility] Eosinophils (Bld) [#/Vol] 0.0 10*3/uL Normal 0.0-0.5 [facility] Comment on above: Performed By: #### 5 0103 #### [facility] [address] [facility] [place] [address], [facility] Eosinophils/100 WBC (Bld) 0.9 % Normal 0.0-6.0 [facility] Comment on above: Performed By: #### 5 3 #### [facility] [address] [facility]. [address] Erythrocyte distribution width (RBC) [Ratio] 11.7 % Normal 11.5-15.0 [facility] Comment on above: Performed By: #### 5 3 #### [facility] [address] Hematocrit (Bld) [Volume fraction] 44.7 % Normal 36.0-45.0 [facility] Comment on above: Performed By: #### 5 3 #### [facility] [address] [facility] [place] [address], [facility] Hemoglobin (Bld) [Mass/Vol] 14.8 g/dL Normal 12.0-15.0 [facility] Comment on above: Performed By: #### 5 3 #### [facility] [address] [place] [address], [facility] IMMATURE GRANS 0.2 % Normal 0.0-1.0 [facility] Comment on above: Performed By: #### 5 0103 #### [facility] [address] Lymphocytes (Bld) [#/Vol] 1.2 10*3/uL Normal 1.2-4.0 [facility] Comment on above: Performed By: #### 102 #### [facility] [address] [place] [address], [facility] Lymphocytes/100 WBC (Bld) 27.3 % Normal 20.0-45.0 [facility] Comment on above: Performed By: #### 102 #### [facility] [address] MCH (RBC) [Entitic mass] 31.7 pg Normal 27.0-33.0 [facility] Comment on above: Performed By: #### 102 #### [facility] [address] MCHC (RBC) [Mass/Vol] 33.1 g/dL Normal 32.0-35.0 [facility] Comment on above: Performed By: #### 102 #### [facility] [address] [place] [address], [facility] MCV (RBC) [Entitic vol] 95.7 fL Normal 82.0-98.0 [facility] Comment on above: Performed By: #### 102 #### [facility] [address] [place] [address], [facility] Monocytes (Bld) [#/Vol] 0.4 10*3/uL Normal 0.1-1.0 [facility] Comment on above: Performed By: #### 102 #### [facility] [address] [place] [address], [facility] MONOS 8.1 % Normal 5.0-12.0 [facility] Comment on above: Performed By: #### 102 #### [facility] [address] [place] [address], [facility] Neutrophils/100 WBC (Bld) 63.1 % Normal 40.0-72.0 [facility] Comment on above: Performed By: #### 5 0103 #### [facility] [address] [place] [address], [facility] Nucleated RBC/100 WBC (Bld) [Ratio] 0 % Normal 0-0 [facility] Comment on above: Performed By: #### 5 0103 #### [facility] [address] [place] [address], [facility] PLAT CNT 242 10*3/uL Normal 150-400 [facility] Comment on above: Performed By: #### 5 3 #### [facility] [address] [place] [address], [facility] RBC (Bld) [#/Vol] 4.67 10*6/uL Normal 3.80-5.00 [facility] Comment on above: Performed By: #### 5 0103 #### [facility] [address] [place] [address], [facility] WBC (Bld) [#/Vol] 4.47 10*3/uL Normal 4.00-10.60 [facility] Comment on above: Performed By: #### 5 0103 #### [facility] [address] [facility] COMP METABOLIC PANELon 09-15 Albumin [Mass/Vol] 5.1 g/dL Normal 3.5-5.7 [facility] Comment on above: Performed By: #### 4 4396, 78092, 14013, 50939, 06379, 35584 #### [facility] [address] [place] [address], [facility] ALKALINE PHOSPH 56 IU/L Normal 34-104 [facility] Comment on above: Performed By: #### 4 4396, 21257, 47137, 40257, 09645, 93045 #### [facility] [address] [place] [address], [place] ALT [Catalytic activity/Vol] 13 U/L Normal 7-52 [facility] Comment on above: Performed By: #### 4 4396, 18233, 62434, 25727, 90771, 53765 #### [facility] [address] [place] [address], [place] AST [Catalytic activity/Vol] 18 U/L Normal 13-39 [facility] Comment on above: Performed By: #### 4 4396, 65907, 15529, 75664, 87333, 37735 #### [facility] [address] [place] [address], [place] Bilirubin [Mass/Vol] 0.7 mg/dL Normal 0.3-1.0 [facility] Comment on above: Performed By: #### 4 4396, 45160, 56620, 98088, 22731, 16727 #### [facility] [address] [place] [address], [place] Calcium [Mass/Vol] 10.4 mg/dL High 8.6-10.3 [facility] Comment on above: Performed By: #### 4 4396, 18354, 59205, 24962, 03153, 93577 #### [facility] [address] [place] [address], [place] Chloride [Moles/Vol] 104 mmol/L Normal 98-107 [facility] Comment on above: Performed By: #### 4 4396, 91169, 35936, 91115, 35270, 18659 #### [facility] [address] [place] [address], [place] CO2 [Moles/Vol] 27 mmol/L Normal 21-31 [facility] Comment on above: Performed By: #### 4 4396, 56264, 24876, 85943, 63710, 85722 #### [facility] [address] [place] [address], [place] Creatinine [Mass/Vol] 0.82 mg/dL Normal 0.60-1.20 [facility] Comment on above: Performed By: #### 4 4396, 71776, 63048, 14301, 48478, 60261 #### [facility] [address] [place] [address], [place] GFR/1.73 sq M.predicted among blacks MDRD (S/P/Bld) [Vol rate/Area] mL/min/{1.73_m2} Normal >60 [facility] Comment on above: Performed By: #### 4 4396, 31441, 39631, 94602, 02408, 10159 #### [facility] [address] [place] [address], [place] GFR/1.73 sq M.predicted among non-blacks MDRD (S/P/Bld) [Vol rate/Area] mL/min/{1.73_m2} Normal >60 [facility] Comment on above: Performed By: #### 4 4396, 22029, 14979, 17023, 53248, 18323 #### [facility] [address] [place] [address], [place] Glucose [Mass/Vol] 85 mg/dL Normal 70-[address] [facility] Comment on above: Performed By: #### 4 4396, 33572, 85822, 37131, 00180, 50405 #### [facility] [address] [place] [address], [place] Potassium [Moles/Vol] 3.9 mmol/L Normal 3.5-5.1 [facility] Comment on above: Performed By: #### 4 4396, 22965, 87134, 54544, 72035, 97593 #### [facility] [address] [place] [address], [place] Protein [Mass/Vol] 7.5 g/dL Normal 6.0-8.[address] [facility] Comment on above: Performed By: #### 4 4396, 01536, 66651, 24209, 91504, 88764 #### [facility] [address] [place] [address], [place] Sodium [Moles/Vol] 139 mmol/L Normal 136-[address] [facility] Comment on above: Performed By: #### 4 4396, 12146, 41748, 09091, 56250, 76732 #### [facility] [address] [place] [address], [place] Urea nitrogen [Mass/Vol] 13 mg/dL Normal 7-25 [facility] Comment on above: Performed By: #### 4 4396, 87781, 08473, 73637, 11184, 87267 #### [facility] [address] [place] [address], [place] FERRITINon 09-15-2021 Ferritin [Mass/Vol] 86 ng/mL Normal 11-307 [facility] Comment on above: Performed By: #### 4 4396, 78232, 82137, 66384, 16606, 70116 #### [facility] [address] [place] [address], [place] FREE T4on 09-15-2021 Free T4 [Mass/Vol] 1.17 ng/dL Normal 0.71-1.[address] [facility] Comment on above: Performed By: #### 4 4396, 24126, 65863, 07301, 82137, 67496 #### [facility] [address] [place] [address], [place] LIPID PROFILEon 09-15-2021 Cholesterol [Mass/Vol] 232 mg/dL High 120-200 [facility] Comment on above: Result Comment: CHOL ESTEROL REFERENCE RANGE: 20 YEARS AND OLDER CARDIOVASCULAR RISK Less than 200 mg/dl Low Risk 200 to 239 mg/dl Borderline Risk 240 mg/dl and greater High Risk Performed By: #### 4 4396, 59528, 67813, 22394, 41502, 45745 #### [facility] [address] [place] [address], [place] Cholesterol in HDL [Mass/Vol] 92 mg/dL Normal 23-92 [facility] Comment on above: Result Comment: Slig ht variation in normal range could be due to gender and/or age. HDL CHOLESTEROL REFERENCE RANGE: 20 years and older Cardiovascular Risk > or =60 mg/dL Desirable 40 TO 59 mg/dL Low Risk <40 mg/dL High Risk Performed By: #### 4 4396, 44517, 27545, 15851, 11718, 43141 #### [facility] [address] [place] [address], [place] Cholesterol in LDL [Mass/Vol] 125 mg/dL Normal 0-130 [facility] Comment on above: Result Comment: LDL IS A CALCULATION LDL IS ONLY VALID IF THE TRIG IS LESS THAN 400. Performed By: #### 4 4396, 52794, 00047, 18319, 13334, 65937 #### [facility] [address] [place] [address], [place] Cholesterol.total/Cho lesterol in HDL [Mass ratio] 2.5 {ratio} Normal .0-4.5 [facility] Comment on above: Performed By: #### 4 4396, 06573, 44256, 16212, 84265, 59492 #### [facility] [address] [place] [address], [place] NON-HDL CHOLESTEROL 140 mg/dL Normal [facility] Comment on above: Performed By: #### 4 4396, 64614, 99525, 26405, 75109, 32855 #### [facility] [address] [place] [address], [place] Triglyceride [Mass/Vol] 77 mg/dL Normal 40-149 [facility] Comment on above: Result Comment: TRIG LYCERIDE REFERENCE RANGE: 20 YEARS AND OLDER CARDIOVASCULAR RISK LESS THAN 150 mg/dl LOW RISK 150 TO 199 mg/dl BORDERLINE RISK 200 mg/dl AND GREATER HIGH RISK Performed By: #### 4 4396, 63436, 03942, 85482, 86780, 63123 #### [facility] [address] [place] [address], [facility] VLDL CHOL 15 mg/dL Normal 0-40 [facility] Comment on above: Performed By: #### 4 4396, 62314, 49671, 91665, 03452, 26533 #### [facility] [address] [place] [address], [facility] TSH3on 09-15-2021 TSH 3RD GENERATION 2.15 uIU/mL Normal 0.34-5.60 [facility] Comment on above: Performed By: #### 4 4396, 17746, 96109, 85794, 68079, 96931 #### [facility] [address] [place] [address], [facility] VITAMIN D 25-HYDROXYon 09-15 VITAMIN D 25-OH 16.0 ng/mL Low 30.0-80.0 [facility] Comment on above: Result Comment: >80. 0 Toxicity possible Performed By: #### 4 4396, 60179, 14928, 88582, 05136, 38432 #### [facility] [address] [place] [address], [facility] Creatinine W/GFR Point of Ca reon 06-09-2020 Creatinine [Mass/Vol] 0.88 mg/dL 0.51 - 1.19 mg/dL [facility] GFR Non- >60 >60 mL/min [place], [place] GFR/1.73 sq M predicted among non-blacks MDRD (S/P/Bld) [Vol rate/Area] mL/min/{1.73_m2} >60 mL/min [place] GFR/1.73 sq M predicted among non-blacks MDRD (S/P/Bld) [Vol rate/Area] [place], [place] Comment on above: Average GFR for 40-4 9 years old: 99 mL/min/1.73sq m Chronic Kidney Disease: <60 mL/min/1.73sq m Kidney failure: <15 mL/min/1.73sq m eGFR calculated using average adult body mass. Additional eGFR calculator available at: http://www.[employer]/multiple_crcl_2012.htm FLUORO FOR SURGICAL PROCEDUR ESon 06-09-2020 FLUORO FOR SURGICAL PROCEDURES Radiology exam is complete. No Radiologist dictation. Please follow up with ordering provider. Final result Normal [facility] Radiology exam is complete. No Radiologist dictation. Please follow up with ordering provider. [place], [place] POCT Glucoseon 06-09-2020 Glucose [Mass/Vol] 88 mg/dL 74 - 100 mg/dL [place], [place] COVID-19on 06-06-2020 SARS-CoV-2 [place] SARS-CoV-2 Not Detected Not Detected [place], [place] Comment on above: The specimen is NEGATIVE for SARS-CoV-2, the novel coronavirus associated with COVID-19. A negative result does not rule out COVID-19. Aaron SARS-CoV-2 for use on the Aaron [email or web address] is a real-time RT-PCR test intended for the qualitative detection of nucleic acids from SARS-CoV-2 in clinician-collected nasal, nasopharyngeal, and oropharyngeal swab specimens from individuals who meet COVID-19 clinical and/or epidemiological criteria. Aaron SARS-CoV-2 is for use only under Emergency Use Authorization (EUA) in laboratories certified under Clinical Laboratory Improvement Amendments of 1988 (CLIA), 42 U.S.C. 263a, that meet requirements to perform high or moderate complexity tests. An individual without symptoms of COVID-19 and who is not shedding SARS-CoV-2 virus would expect to have a negative (not detected) result in this assay. Fact sheet for Healthcare Providers: https://www.fda.gov/media/040637/download Fact sheet for Patients: https://www.fda.gov/media/653262/download METHODOLOGY: RT-PCR SARS-CoV-2, Rapid [place], [place] Source .NASOPHARYNGEAL SWAB [place], [place] [id number] 06-06-2020 SARS-CoV-2 Normal [facility] Comment on above: Performed By: #### C OVID #### [facility] [address], [place] [id number] Site Engineer: Clarke Arellano MD [facility] [address] [place] [address] Site Engineer: Anshul Treviño MD SARS-CoV-2 Not Detected Normal [facility] Comment on above: Result Comment: The specimen is NEGATIVE for SARS-CoV-2, the novel coronavirus associated with COVID-19. A negative result does not rule out COVID-19. Aaron SARS-CoV-2 for use on the Aaron [email or web address] is a real-time RT-PCR test intended for the qualitative detection of nucleic acids from SARS-CoV-2 in clinician-collected nasal, nasopharyngeal, and oropharyngeal swab specimens from individuals who meet COVID-19 clinical and/or epidemiological criteria. Aaron SARS-CoV-2 is for use only under Emergency Use Authorization (EUA) in laboratories certified under Clinical Laboratory Improvement Amendments of 1988 (CLIA), 42 U.S.C. ?263a, that meet requirements to perform high or moderate complexity tests. An individual without symptoms of COVID-19 and who is not shedding SARS-CoV-2 virus would expect to have a negative (not detected) result in this assay. Fact sheet for Healthcare Providers: https://www.fda.gov/media/911369/download Fact sheet for Patients: https://www.fda.gov/media/053526/download METHODOLOGY: RT-PCR Performed By: #### C OVID #### [facility] [address], [place] [id number] Site Engineer: Clarke Arellano MD [facility] [address] [place] [address] Site Engineer: Anshul Treviño MD SARS-CoV-2,Rapid Normal [facility] Comment on above: Performed By: #### C OVID #### [facility] [address], [place] [id number] Site Engineer: Clarke Arellano MD [facility] [address] [place] [address] Site Engineer: Anshul Treviño MD [id number] 06-04-2020 SARS-CoV-2 Source .NASOPHARYNGEAL SWAB [facility] Comment on above: Performed By: #### C OVID #### [facility] [address] [place] [address] Site Engineer: Clarke Arellano MD [facility] [address] [place] [address] Site Engineer: Anshul Treviño MD Aerobic Cultureon 06-28-2018 Aerobic Culture [facility] E ORGANISM: Methicillin Resis Staph Aureus (O:MRSA) Comments This Organism Does Not Demonstrate Inducible D-Test Neg Added Comment Clindamycin Resistance In Vitro. Quantity of Growth Heavy Growth [facility] No Anaerobes Isolated 3 Days [facility] Gram Stain Result 1+ Red Blood Cells 3+ Gram Positive Cocci Aerobic IVY Charge (Pos New) ---- SUSCEPTIBILITY --- ORGANISM: O:MRSA ANTIBIOTIC INTERPRETATION IVY Amoxacillin/K Clavulanate R >4/2 Ampicillin R >8 Ampicillin/Sulbactam R 1616/8 Cefazolin R 16 Ceftriaxone R 32 Clindamycin S <0.5 Daptomycin S 1 Erythromycin R >4 Linezolid S 2 Meropenem R <4 Oxacillin R >2 Penicillin R >8 Rifampin S <1 Tetracycline S <4 Trimethoprim/Sulfamet hoxazole S <0.5/9.5 Vancomycin S 2 S = SUSCEPTIBLE I = INTERMEDIATE R = RESISTANT BLANK = DATA NOT AVAILABLE, OR DRUG NOT ADVISABLE OR TESTED R* = RESISTANCE DUE TO EXTENDED SPECTRUM BETA-LACTAMASES ESBL = EXTENDED SPECTRUM BETA-LACTAMASE TFG = THYMIDINE-DEPENDENT STRAIN JOSE = BETA-LACTAMASE POSITIVE IB = INDUCIBLE BETA-LACTAMASE. APPEARS IN PLACE OF 'S' WITH SPECIES KNOWN TO POSSESS INDUCIBLE BETA-LACTAMASES. POTENTIALLY THEY MAY BECOME RESISTANT TO ALL B-LACTAM DRUGS. PERFORMED BY: [place] [id number] PATHOLOGIST TOOLING MECH[employer]IC NGOZI DURAN M.D. [facility] Comment on above: Performed By: #### A ERC #### [address] Vital Signs Date Time Vital Sign Value Performing Clinician Chan manriquez 05-26-2024 13:36-0500 Body height 175.3 cm Jimbo Ozuna MD Work Phone: [facility] 05-26-2024 13:36-0500 Body mass index (BMI) [Ratio] 23.63 kg/m2 Jimbo Ozuna MD Work Phone: [facility] 05-26-2024 13:36-0500 Body temperature 98.6 [degF] Jimbo Ozuna MD Work Phone: [facility] 05-26-2024 13:36-0500 Body weight 72.58 kg Jimbo Ozuna MD Work Phone: [facility] 05-26-2024 13:36-0500 Diastolic blood pressure 84 mm[Hg] Jimbo Ozuna MD Work Phone: [facility] 05-26-2024 13:36-0500 Heart rate 86 /min Jimbo Ozuna MD Work Phone: [facility] 05-26-2024 13:36-0500 SaO2% (BldA) [Mass fraction] 100 % Jimbo Ozuna MD Work Phone: [facility] 05-26-2024 13:36-0500 Systolic blood pressure 146 mm[Hg] Jimbo Ozuna MD Work Phone: [facility] 05-15-2024 15:33-0500 Body height 175.3 cm Amina Betts MD Work Phone: [facility] 05-15-2024 15:33-0500 Body mass index (BMI) [Ratio] 23.72 kg/m2 Amina Betts MD Work Phone: [facility] 05-15-2024 15:33-0500 Body weight 72.85 kg Amina Betts MD Work Phone: [facility] 05-15-2024 15:33-0500 Diastolic blood pressure 92 mm[Hg] Amina Betts MD Work Phone: [facility] 05-15-2024 15:33-0500 Heart rate 77 /min Amina Betts MD Work Phone: [facility] 05-15-2024 15:33-0500 Systolic blood pressure 160 mm[Hg] Amina Betts MD Work Phone: [facility] 05-01-2024 18:48-0500 Body mass index (BMI) [Ratio] 24.04 kg/m2 Jaqueline Yost [employer] Work Phone: [facility] 05-01-2024 18:48-0500 Body temperature 97.39 [degF] Jaqueline Yost [employer] Work Phone: [facility] 05-01-2024 18:48-0500 Body weight 73.85 kg Jaqueline Yost [employer] Work Phone: [facility] 05-01-2024 18:48-0500 Diastolic blood pressure 82 mm[Hg] Jaqueline Yost [employer] Work Phone: [facility] 05-01-2024 18:48-0500 Systolic blood pressure 138 mm[Hg] Jaqueline Yost [employer] Work Phone: [facility] 03-12-2024 09:37-0400 Body mass index (BMI) [Ratio] 23.86 kg/m2 Jaqueline Yost [employer] Work Phone: [facility] 03-12-2024 09:37-0400 Body temperature 97 [degF] Jaqueline Felicianotrick [employer] Work Phone: [facility] 03-12-2024 09:37-0400 Body weight 73.3 kg Jaqueline Felicianotrick [employer] Work Phone: [facility] 03-12-2024 09:37-0400 Diastolic blood pressure 80 mm[Hg] Jaqueline Felicianotrick [employer] Work Phone: [facility] 03-12-2024 09:37-0400 Systolic blood pressure 138 mm[Hg] Jaqueline Felicianotrick [employer] Work Phone: [facility] 06-09-2020 13:06-0500 Body Temperature 98.2 [degF] [place] 06-09-2020 13:06-0500 BP Diastolic 85 mm[Hg] [place], [place] 06-09-2020 13:06-0500 BP Systolic 138 mm[Hg] [place] 06-09-2020 13:06-0500 Pulse (Heart Rate) 72 /min [place], [place] 06-09-2020 13:06-0500 Pulse Oximetry 100 % [place] 06-09-2020 13:06-0500 Respiratory Rate 16 /min [place] 06-09-2020 09:36-0500 BMI (Body Mass Index) 21.71 kg/m2 [place], [place] 06-09-2020 09:36-0500 Body weight 66.68 [address] [place] 06-09-2020 09:36-0500 Height 175.[address] [place] Encounters Encounter Date Encounter Type Care Provider Facility Start: 08-05-2024 End: 08-05-2024 ambulatory JAQUELINE YOST Not Available Start: 07-21-2024 End: 07-22-2024 ambulatory [facility] Start: 06-27-2024 End: 06-27-2024 Telephone encounter Marietta Ruvalcaba MD Work Phone: [facility] Start: 06-25-2024 End: 06-30-2024 Refill Jaqueline Yost [employer] Work Phone: [facility] Comment on above: Acquired hypothyroid ism (CMS/HCC) Start: 06-18-2024 End: 06-18-2024 Telephone encounter Marietta Ruvalcaba MD Work Phone: [facility] Start: 05-26-2024 End: 05-26-2024 Patient encounter procedure Jimbo Ozuna MD Work Phone: Gastroenterology Comment on above: Gastroesophageal ref lux disease without esophagitis (Primary Dx); Bloating Start: 05-26-2024 End: 05-26-2024 ambulatory JIMBO OZUNA Facility:[facility] Start: 05-19-2024 End: 05-19-2024 Telephone encounter Marietta Ruvalcaba MD Work Phone: [facility] Start: 05-15-2024 End: 05-15-2024 Office outpatient visit 15 minutes Amina Betts MD Work Phone: [facility] Comment on above: Presence of cardiac pacemaker (Primary Dx) Start: 05-15-2024 End: 05-15-2024 Clinical Support Ppc Pacer [facility] Comment on above: Presence of cardiac pacemaker- Bio 05/09/22 Lazaro (Primary Dx) Start: 05-01-2024 End: 05-01-2024 Office outpatient visit 25 minutes Jaqueline Yost [employer] Work Phone: [facility] Comment on above: Primary hypertension (CMS/HCC) (Primary Dx); Gastroesophageal reflux disease, unspecified whether esophagitis present; Nausea and vomiting, unspecified vomiting type; History of stomach ulcers Start: 05-01-2024 End: 05-01-2024 ambulatory JAQUELINE YOST Not Available Start: 05-01-2024 End: 05-01-2024 Bamboo flowsheet Jaqueline Yost [employer] Work Phone: [facility] Start: 05-01-2024 End: 05-01-2024 Bamboo flowsheet Jaqueline Yost [employer] Work Phone: [facility] Start: 03-17-2024 End: 03-17-2024 Orders Only Jaqueline Yost [employer] Work Phone: [facility] Comment on above: Acquired hypothyroid ism (CMS/HCC) (Primary Dx) Start: 03-12-2024 End: 03-12-2024 Bamboo flowsheet Jaqueline Yost [employer] Work Phone: [facility] Start: 03-12-2024 End: 03-12-2024 Bamboo flowsheet Jaqueline Yost [employer] Work Phone: [facility] Start: 03-12-2024 End: 03-12-2024 ambulatory JAQUEILNE YOST Not Available Start: 03-12-2024 End: 03-12-2024 Patient encounter procedure Jaqueline Yost [employer] Work Phone: [facility] Start: 03-12-2024 End: 03-12-2024 Periodic preventive med est patient 40-64yrs Jaqueline Yost [employer] Work Phone: [facility] Comment on above: Generalized abdomina l pain (Primary Dx); Chronic obstructive pulmonary disease, unspecified (CMS/HCC); Sick sinus syndrome (CMS/HCC); Primary hypertension (CMS/HCC); Diarrhea, unspecified type; Gastroesophageal reflux disease, unspecified whether esophagitis present; Encounter for annual wellness exam in Medicare patient; Acquired hypothyroidism (CMS/HCC); Depressive disorder (CMS/HCC); Cigarette smoker; Dyslipidemia (CMS/HCC); Exhaustion of cardiac pacemaker battery; Family history of malignant neoplasm of gastrointestinal tract; Mixed hyperlipidemia (CMS/HCC); Sinus node dysfunction (CMS/HCC); Vitamin D deficiency; Obstructive sleep apnea syndrome; Other chronic pain; Chronic obstructive pulmonary disease, unspecified COPD type (CMS/HCC); Presence of cardiac pacemaker; Acquired cystic kidney disease; Left renal mass; Disc displacement, thoracic; History of methicillin resistant Staphylococcus aureus infection; Family history of breast cancer; Family history of endocrine disorder; Other fatigue; H/O: hysterectomy; Hallucination, visual; Migraine without aura and without status migrainosus, not intractable (CMS/HCC); Tobacco dependence syndrome; History of bowel resection Start: 03-12-2024 End: 03-12-2024 ambulatory JAQUELINE YOST Not Available Start: 09-19-2023 End: 09-20-[address] [facility] Start: 07-05-2022 End: 07-05-[address] DOMINIC DONNELLY Facility: Start: 09-28-2021 End: 09-29-2021 ambulatory DOMINIC DONNELLY Facility:[email or web address] Start: 06-09-2020 End: 06-09-2020 Patient encounter procedure [facility] Start: 06-09-2020 End: 06-09-2020 Subsequent hospital visit by physician Eugene Alex Work Phone: [facility] Comment on above: Post-operative pain (Primary Dx) Start: 06-04-2020 End: 06-09-2020 Patient encounter procedure [facility] Start: 06-04-2020 End: 06-08-2020 Subsequent hospital visit by physician [facility] Covid19 Pat Screening Schedule [facility] Comment on above: Preoperative testing Start: 06-28-2018 End: 06-28-2018 Patient encounter procedure Jhoana Macias Facility:[facility] Procedures Date Procedure Procedure Detail Performing Clinician Start: 05-15-2024 Follow-up visit Follow-up AMINA BETTS Start: 12-05-2022 Lipid 1996 panel - S lesley or Plasma Jimbo Ozuna MD Work Phone: Start: 08-23-2022 Mammography Jaqueline díaz NP Work Phone: Start: 06-09-2020 Fluoroscopy during operation Eugene Alex Work Phone: Start: 06-09-2020 Ecg routine ecg w/le ast 12 lds w/i&r Mark M Raduege Work Phone: Start: 06-09-2020 CREATININE W/GFR POI NT OF CARE Eugene Alex Work Phone: Start: 06-09-2020 Gluc bld gluc mntr d ev cleared fda spec home use Eugene Alex Work Phone: Start: 06-04-2020 COVID-19 Andrea Evans funk Work Phone: Start: 04-01-2018 H/O: hysterectomy H/O: hysterectomy Jaqueline Yost [employer] Work Phone: Start: 09-03-2008 Colonoscopy Jaqueline díaz [employer] Work Phone: H/O: hysterectomy H/O: hysterectomy Artie ledesma Mitesh Yost [employer] Work Phone: Plan of Treatment Date Care Activity Detail Author Start: 12-06-2027 Lipid panel Lipid Screening [facility] Start: 04-19-2025 Diabetes Screening Diabetes Screening [facility] Start: 03-29-2025 Screening for malignant neoplasm of colon [facility] Start: 03-12-2025 Medicare Annual Wellness (AWV) Medicare Annual Wellness (AWV) [facility] Start: 09-30-2024 End: 09-30-2024 Patient encounter procedure 09/30/2024 7:30 AM EDT Appointment Gastroenterology [address] [place] [id number] Michael Acuna MD [address] [place] [address] Gastroesophageal reflux disease without esophagitis [K21.9] Gastroenterology Comment on above: Gastroesophageal reflux disease without esophagitis [K21.9] Start: 05-15-2024 End: 05-15-2025 Device Interrogation Device Interrogation Cardiac Services Routine Presence of cardiac pacemaker Expected: 05/15/2024, Expires: 05/15/2025 [facility] Work Phone: Comment on above: Expected: 05/15/2024, Expires: Start: 05-01-2024 End: 05-01-2024 Patient encounter procedure 05/01/2024 7:00 PM EST Office Visit [facility] [address] [facility] [place] [id number] Jaqueline Yots NP [address] [facility] [place] [address] Arrived [facility] Comment on above: Arrived Start: 04-24-2024 End: 03-17-2025 TSH W/REFLEX TO FT4 TSH W/REFLEX TO FT4 Lab Routine Acquired hypothyroidism (CMS/HCC) Expected: 04/24/2024 (Approximate), Expires: 03/17/2025 [facility] Work Phone: Comment on above: Expected: 04/24/2024 (Approximate), Expi res: 03/17/2025 Start: 03-12-2024 End: 03-12-2025 25-hydroxyvitamin D3 [Mass/volume] in Serum or Plasma Vitamin D 25 hydroxy Lab Routine Encounter for annual wellness exam in Medicare patient Vitamin D deficiency Expected: 03/12/2024 (Approximate), Expires: 03/12/2025 [facility] Comment on above: Expected: 03/12/2024 (Approximate), Expi res: 03/12/2025 Start: 03-12-2024 End: 03-12-2025 Amylase [Enzymatic activity/volume] in Serum or Plasma Amylase Lab Routine Generalized abdominal pain Expected: 03/12/2024 (Approximate), Expires: 03/12/2025 [facility] Comment on above: Expected: 03/12/2024 (Approximate), Expi res: 03/12/2025 Start: 03-12-2024 End: 03-12-2025 CBC W Auto Differential panel - Blood CBC and differential Lab Routine Encounter for annual wellness exam in Medicare patient Sinus node dysfunction (CMS/HCC) Expected: 03/12/2024 (Approximate), Expires: 03/12/2025 [facility] Comment on above: Expected: 03/12/2024 (Approximate), Expi res: 03/12/2025 Start: 03-12-2024 End: 03-12-2025 Comprehensive metabolic 2000 panel - Serum or Plasma Comprehensive metabolic panel Lab Routine Primary hypertension (CMS/HCC) Encounter for annual wellness exam in Medicare patient Expected: 03/12/2024 (Approximate), Expires: 03/12/2025 [facility] Work Phone: Comment on above: Expected: 03/12/2024 (Approximate), Expi res: 03/12/2025 Start: 03-12-2024 End: 03-12-2025 Lipase [Enzymatic activity/volume] in Serum or Plasma Lipase Lab Routine Generalized abdominal pain Expected: 03/12/2024 (Approximate), Expires: 03/12/2025 [facility] Comment on above: Expected: 03/12/2024 (Approximate), Expi res: 03/12/2025 Start: 03-12-2024 End: 03-12-2025 Lipid 1996 panel - Serum or Plasma Lipid panel Lab Routine Encounter for annual wellness exam in Medicare patient Dyslipidemia (CMS/HCC) Expected: 03/12/2024 (Approximate), Expires: 03/12/2025 [facility] Comment on above: Expected: 03/12/2024 (Approximate), Expi res: 03/12/2025 Start: 03-12-2024 End: 03-12-2025 TSH W/REFLEX TO FT4 TSH W/REFLEX TO FT4 Lab Routine Encounter for annual wellness exam in Medicare patient Acquired hypothyroidism (CMS/HCC) Expected: 03/12/2024 (Approximate), Expires: 03/12/2025 [facility] Comment on above: Expected: 03/12/2024 (Approximate), Expi res: 03/12/2025 Start: 03-12-2024 End: 03-12-2025 XR Abdomen Single view [facility] Comment on above: Expected: 03/12/2024, Expires: Start: 03-12-2024 End: 03-12-2024 Patient encounter procedure 03/12/2024 9:30 AM EDT Office Visit [facility] [address] [place] [address] Jaqueline Yost NP [address] [place] [address] Arrived [facility] Comment on above: Arrived Start: 01-20-2024 Covid-19 Vaccine ( season) Covid-19 Vaccine ( season) [facility] Start: 01-20-2024 Influenza vaccination [facility] Start: 12-07-2023 Adult BMI Screening Adult BMI Screening [facility] Start: 12-07-2023 Tobacco Screening Tobacco Screening [facility] Start: 08-24-2023 Screening for malignant neoplasm of breast Mammogram [facility] Start: 01-30-2023 Medicare Annual Wellness (AWV) Medicare Annual Wellness (AWV) [facility] Start: 2021 Administration of varicella zoster vaccine Zoster (Shingles) Vaccine (1 of 2) [facility] Start: 2021 Pneumococcal Vaccine: 50+ (3 of 3 - PCV20 or PCV21) Pneumococcal Vaccine: 50+ (3 of 3 - PCV20 or PCV21) [facility] Start: 2021 Shingrix Vaccine (1 of 2) Shingrix Vaccine (1 of 2) [facility] Start: 05-27-2020 Annual Wellness Visit (AWV) Annual Wellness Visit (AWV) [place], [place] Start: 04-21-2020 Screening for malignant neoplasm of breast Mammogram Screening [facility] Start: 01-20-2020 Influenza vaccination Flu vaccine (#1) [place] Start: 09-03-2018 Screening for malignant neoplasm of colon Colonoscopy [facility] Start: 2016 Screening for malignant neoplasm of colon [facility] Start: 2011 Lipid panel Lipid screen [place], [place] Start: 1992 Screening for malignant neoplasm of cervix [facility] Start: 1990 DTaP,Tdap and Td Vaccines (1 - Tdap) DTaP,Tdap and Td Vaccines (1 - Tdap) [facility] Start: 1990 DTaP/Tdap/Td vaccine (1 - Tdap) DTaP/Tdap/Td vaccine (1 - Tdap) [place] Start: 1990 Hepatitis B Vaccine (1 of 3 - 19+ 3-dose series) Hepatitis B Vaccine (1 of 3 - 19+ 3-dose series) [facility] Start: 1990 Urine microalbumin profile DTaP,Tdap,Td Vaccine (1 - Tdap) [facility] Start: 1989 Anxiety Screening Anxiety Screening [facility] Start: 1989 Depression Screening Depression Screening [facility] Start: 1989 Hepatitis C screening Hepatitis C Screening [facility] Start: 1989 HIV screening HIV Screening [facility] Start: 1986 HIV screening HIV screen [place], [place] Start: 1983 Depression Screening Depression Screening [facility] Start: 1977 Pneumococcal 0-64 years Vaccine (1 of 1 - PPSV23) Pneumococcal 0-64 years Vaccine (1 of 1 - PPSV23) [place] Start: 1971 Hepatitis C screening Hepatitis C screen [place], [place] Start: 1971 Screening for malignant neoplasm of colon [facility] End: 05-26-2025 EGD DIAGNOSTIC EGD DIAGNOSTIC Endoscopy Routine Gastroesophageal reflux disease without esophagitis 1 Occurrences starting 05/26/2024 until 05/26/2025 [facility] Work Phone: Comment on above: 1 Occurrences starting 05/26/2024 until 05/26/2025 EKG 12 Lead EKG 12 Lead ECG STAT 06/09/2020 10:39 AM EST [place], [place] Oxygen therapy [[facility] Data Set] Initiate Oxygen Therapy Protocol Respiratory Care Routine Daily until discontinued starting 06/09/2020 [facility] Comment on above: Daily until discontinued starting 2020 Phase I & II - meter ed glucose Phase I & II - metered glucose Point of Care Testing Routine As Needed until discontinued starting 06/09/2020 [place] Comment on above: As Needed until discontinued starting End: 06-09-2020 POCT Glucose POCT Glucose Point of Care Testing STAT One Time for 1 Occurrences starting 06/09/2020 until 06/09/2020 [place] Comment on above: One Time for 1 Occurrences starting 05/22 until 06/09/2020 End: 06-09-2020 Urine , POCT Urine , POCT Point of Care Testing Routine One Time for 1 Occurrences starting 06/09/2020 until 06/09/2020 [facility] Comment on above: One Time for 1 Occurrences starting 05/22 until 06/09/2020 Immunizations Immunization Date Immunization Notes Care Provider Bernardo roger 05-21-2011 pneumococcal conjuga te vaccine, 13 valent Jaqueline Janek [employer] Work Phone: [facility] 05-21-2004 pneumococcal polysaccharide vaccine, 23 valent Jaqueline Janek [employer] Work Phone: [facility] Payers Date Payer Category Payer Self-pay 2003 Medicare [id number] 1971 Unknown [id number] 2.16.8 [id number] 1971 Unknown [id number] 2.16.8 [id number] 1971 Unknown [id number] 2.16.8 [id number] 1971 Unknown [id number] 2.16.84 [id number] 1971 Unknown [id number] 2.16.8 [id number] 1971 Unknown [id number] 2.16.8 [id number] 1971 Unknown [id number] 2.16.8 [id number] 1971 Unknown [id number] 2.16.8 [id number] 1971 Unknown [id number] 2.16.84 [id number] 1971 Unknown [id number] 2.16.84 [id number] 1971 Unknown [id number] 2.16.84 [id number] 1971 Unknown [id number] 2.16.84 [id number] 1959 Medicaid [id number]. [id number] 1958 Medicare [id number] Unknown [id number] Social History Date Type Detail Facility Start: 06-04-2020 End: 06-09-2020 Tobacco smoking status [facility] Current every day smoker [place] Start: 05-21-1990 End: 01-19-2021 History of tobacco use Cigarette Smoker [place] Start: 06-04-2020 End: 03-12-2024 Tobacco use and exposure Never used [place] Start: 06-04-2020 End: 05-26-2024 Alcohol intake Current non-drinker of alcohol (finding) [place], [place] Start: 1970 Sex Assigned At Not on file [place] Exposure to SARS-CoV -2 (event) Not sure [place] Start: 01-10-2023 End: 03-12-2024 Tobacco smoking status [facility] Ex-smoker [facility] Start: 05-21-1990 End: 01-19-2021 History of tobacco use Current smoker [facility] Start: 06-11-2023 End: 05-01-2024 Alcoholic beverage intake Current drinker of alcohol (finding) [facility] Start: 03-08-2024 End: 03-12-2024 History of Social function [facility] Start: 03-08-2024 End: 03-12-2024 [id number] Health Literacy [facility] How often do you nee d to have someone help you when you read instructions, pamphlets, or other written material from your doctor or pharmacy [SILS] Sometimes [facility] Do you belong to any clubs or organizations such as catholic groups, unions, fraternal or athletic groups, or school groups? No [facility] Are you now , , , , never or living with a partner? [facility] How often to you hav e a drink containing alcohol? 2-4 times a month [facility] How many standard dr inks containing alcohol do you have on a typical day? 1 or 2 [facility] How often do you hav e 6 or more drinks on 1 occasion? Never [facility] Do you feel stress - tense, restless, nervous, or anxious, or unable to sleep at night because your mind is troubled all the time - these days [OSQ] Not at all [facility] The food that (I/we) bought just didn't last, and (I/we) didn't have money to get more. Never true [facility] Start: 04-04-2023 Alcohol Comment caffeine: 2-3 cups per day [facility] Start: 02-24-2018 Alcohol Comment socailly [facility] Start: 12-24-2014 Sex Female (finding) [facility] Medical Equipment Procedure Code Equipment Code Equipment Origin al Text Equipment Identifier Dates Stent Uret 6fr L 26cm Percflx Hydr+ Dbl Pgtl Thrd 2 [id number] Start: 06-09-2020 Clinical Notes 05-09-2022 to 07-21-2024 Telephone Encounter - Sofia Huff NP - 06/27/2024 11:05 AM ESTTelephone Encounter - Sofia Huff NP - 06/27/2024 11:05 AM ESTTelephone Encounter - Josie Vitale - 06/27/2024 10:51 AM EST Note Date & Type Note Facility 07-21-2024 Note [facility] Note Reason for cardiology consult: Dyspnea on exertion, history of a pacemaker for neurocardiogenic syncope and sick sinus syndrome Chief Complaint: Dyspnea on exertion and palpitation HPI: Gilberto Payan is a 54 y.o. female with past medical history of hypertension, hyperlipidemia, neurocardiogenic syncope, sick sinus syndrome and high-grade heart block status post permanent pacemaker in 1999 and generator change April [address] Willis, history of hypothyroidism, COPD, GERD The patient was originally a patient of Dr. Willis but then she moved to [facility] and now is going back to [email or web address] cardiology The patient states that she has been progressively having more shortness of breath with exertion. She denies any associated chest discomfort. She denies orthopnea but she reports that occasionally she wakes up during the night gasping for air but she does not have to sit up in the bed. She just changes position. She was told by her granddaughter that she snores. She does not know if she stops breathing but she is tired and sleepy all the time. She reports that she sleeps about 12 to 13 hours a day. She reports that she gained weight after she quit smoking. She reports occasional palpitation. On last device check she was told by [facility] that she had an episode of tachycardia in November but should not be of a concern. She reports dizziness when she stands up fast but she has been careful with changing position. She denies any syncopal episodes. She drinks a lot of water during the day and only 1 cup of coffee. She quit caffeine about 1 and half year ago. She denies alcohol or illicit drugs She used to be a smoker 1 and half pack per day since she was 19 years old and she quit 2021. She denies alcohol or illicit drugs. Cardiology ROS: GENERAL: Denies fever, chills, night sweats, weight loss. HEENT: Denies changes in vision, photophobia, changes in hearing, epistaxis, oral bleeding. CARDIOVASCULAR: She reports exertional dyspnea and waking up gasping for air during the night. Denies chest pain, orthopnea/PND. She reports occasional palpitations. She reports orthostatic lightheadedness but no sink RESPIRATORY: Denies coughing, wheezing GI: Denies abdominal pain, nausea/vomiting, heartburn, melena/hematochezia. RENAL: Denies dysuria, hematuria, flank pain. MSK: Denies muscle weakness/pain, arthralgias/joint pain. NEUROLOGIC: Denies LOC, weakness, numbness, headaches. SKIN: Denies abnormal rashes or bleeding. PSYCH: Denies significant anxiety, depression, sleep disturbances. Past Medical History She has a past medical history of Abnormal ECG, Hyperlipidemia, Hypertension, Kidney cysts, and Pacemaker. Surgical History She has a past surgical history that includes CTA Chest W IV Contrast (02/27/2018); Insert / replace / remove pacemaker; Cholecystectomy (05/21/2005); and Hysterectomy. Social History She reports that she has quit smoking. Her smoking use included cigarettes. She started smoking about 2 years ago. She has a 1.3 pack-year smoking history. She has never been exposed to tobacco smoke. She has never used smokeless tobacco. She reports current alcohol use. She reports that she does not use drugs. Family History Family History Problem Relation Name Age of Onset Heart disease Mother Thyroid nodules Mother Atrial fibrillation Mother Diabetes Father Allergies Patient has no known allergies. Medications Current Outpatient Medications: cholecalciferol (Vitamin D-3) 1,250 mcg (50,000 units) capsule, cholecalciferol (vitamin D3) 1,250 mcg (50,000 unit) capsule TAKE ONE CAPSULE BY MOUTH ONCE WEEKLY, Disp: , Rfl: diphenoxylate-atropine (Lomotil) 2.5-0.025 mg tablet, , Disp: , Rfl: levothyroxine (Synthroid, Levoxyl) 125 mcg tablet, Take 88 mcg by mouth before breakfast., Disp: , Rfl: metoprolol succinate XL (Toprol-XL) 50 mg 24 hr tablet, Take 100 mg by mouth in the morning., Disp: , Rfl: omeprazole (PriLOSEC) [address] capsule, , Disp: , Rfl: sucralfate (Carafate) 1 gram tablet, Take 1 g by mouth before breakfast, before lunch, before evening meal, and at bedtime., Disp: , Rfl: cholestyramine (Questran) 4 gram packet, , Disp: , Rfl: Last Recorded Vitals Visit Vitals BP (!) 150/92 (BP Location: Left arm, Patient Position: Sitting) Pulse 83 Ht 1.753 m (5' 9 ) Wt 73 kg (161 lb) SpO2 99% BMI 23.78 kg/m??? OB Status Hysterectomy Smoking Status Former BSA 1.89 m??? Physical Examination: GENERAL: alert and oriented x3, well developed, in no acute distress. HEAD: atraumatic, normocephalic. EYES: AWAIS, EOMI. NECK: trachea midline, no JVD present, no carotid bruits present. CARDIAC: S1, S2 present. RRR. No murmur, rubs, or gallops. RESPIRATORY: CTAB, no increased effort of breathing, no rales, rhonchi, or wheezing. ABDOMEN: soft, nontender, nondistended. EXTREMITIES: no lower extremity edema, peripheral pulse (more content not included)... [facility] 06-27-2024 Telephone encounter Note She is due for labs to recheck her thyroid, 30 day supply sent to pharmacy. She should be getting the lomotil from GI [facility] 06-27-2024 Miscellaneous Notes She is due for labs to recheck her thyroid, 30 day supply sent to pharmacy. She should be getting the lomotil from GI Pt is calling again regarding her lamotil and synthroid rx that she requested a few days ago documented in this encounter [facility] 06-27-2024 Telephone encounter Note Pt is calling again regarding her lamotil and synthroid rx that she requested a few days ago [facility] 06-18-2024 Telephone encounter Note Pt called and said [place] is flying out of the [place] , and wants to know if you will prescribe her 2 xanax pills to help her with the flight. [facility] 06-18-2024 Miscellaneous Notes Pt called and said she is flying out of the country , and wants to know if you will prescribe her 2 xanax pills to help her with the flight. documented in this encounter [facility] 05-26-2024 Instructions Jimbo Ozuna MD - 05/26/2024 2:22 PM EST Avoid caffeine, alcohol, chocolate after 3 pm Wait 4-5 hours between dinner and laying down Get firm wedge or reflux pillow Increase omeprazole to twice per day- take 1/2 hour before eating something Send me MC message after upper scope is done to touch base documented in this encounter [facility] 05-26-2024 History of Present illness Narrative NAME: [facility] NO: [id number] PRESENTING COMPLAINT This patient is self referred for evaluation of chronic GI symptoms I previously saw her in 2011- review of A/P as copied from 02/2012 note: Impression: 41 yo female with longstanding GI symptoms and elevated gastrin level (was 600 in 07/27 and then 57 (18-47) in 10/2008 after stopping Nexium). Of note, GERD symptoms started after surgery for fracture pacemaker lead. W/U so far negative for organic process. I have suspected a functional etiology with GERD as most likely etiologies for her symptoms. Now having recurrent symptoms with weight loss- of note she had weight loss in the past as well. I suggested restarting some of the meds that have helped her in the past and close F/U of weight and symptoms. Will also refer to Urology at [facility] to further discuss ?increasing number of renal lesions. Plan: 1. Restart Elavil at 25 mg qHS 2. Use Lomotil on a regular basis 3. Refer to Urology 4. Close F/U of weight- she gets weighed at her PCP's office q 2 weeks Jimbo Ozuna MD After that 2011 visit, she did better for several years- thinks that she never went back on Elavil; has used Lomotil rarely (3-4 times per year); stopped both Nexium and Pecid. Then ~1 year ago her reflux symptoms got worse again- started after pacemaker change. Got even worse in 02/2024 Currently symptoms are: - Acid reflux and burning- worse after eating but can happen on empty stomach - Gets regurgitation of food to back of throat especially at night- sleeps on 3 pillows and sometimes sleeps sitting up - Throat pain and cough with eating - 1 episode of ?dysphagia - Appetite is decreased- only eats once per day - 2 BMs per day; formed - No BRBPR - Bloating - Weight is up by 25 pounds over the past 2 years (since quitting smoking) She was started on omeprazole 1 year ago and carafate more recently Gets 1-2 hours between dinner and laying down Has been using Motrin- 600 mg 2-3 times per week Former smoker- quit 01/2002 [facility] notable for: 1. Pacemaker for neurologic cardiosyncope 2. Hypothyroid following radioactive ablation for hyperthyroidism- on Synthroid 3. S/P bowel puncture during laporoscopy with subsequent leak and abscess in 1995- had short segment resection per patient Last EGD and colonoscopy were in 2008 Review of records as copied and modified from abstract note: CT Abd/Pelvis W/O IV contrast (2021): IMPRESSION: No acute intraabdominal pathology identified. No renal calculi or collecting system dilatation. Unchanged left renal cysts, no follow-up required. Labs (02/2024): Nl CMP and CBC other than WBC = 3.6 Nl amylase and lipase TSH- 0.02; FT4 normal Past surgical operations: PAST SURGICAL HISTORY Procedure Laterality Date PAST SURGICAL HISTORY OF 07/2006 Gallbladder Removed PAST SURGICAL HISTORY OF 09/2006 Change Pacemaker Add Lead(1 Fractured) PAST SURGICAL HISTORY OF 1996 Hysterectomy PAST SURGICAL HISTORY OF 1995 Removal of Left Ovary due to bowel puncture during laproscopy Medications: Current Outpatient Medications Medication Sig omeprazole (PRILOSEC) 40 mg capsule Take 40 mg by mouth once daily. sucralfate (CARAFATE) 1 gram tablet Take 1 g by mouth. levothyroxine sodium(SYNTHROID 100 MCG TAB) Take 88 mcg by mouth. metoprolol succinate ER (TOPROL XL) 25 mg 24 hr tablet Take 1 tablet by mouth once daily. diphenoxylate-atropine (LOMOTIL) 2.5-0.025 mg per tablet Take 2 tablets by mouth four times daily as needed. (Patient not taking: Reported on 05/26/2024) No current facility-administered medications for this visit. Allergies: Patient has no known allergies. PERSONAL HABITS: Tobacco: No Alcohol: Yes, How Many? Weekends PAST MEDICAL HISTORY: Colon polyps: No Colon cancer: No Other cancer: No Radiation / Chemotherapy: No Crohn's disease / Ulcerative colitis: No High cholesterol or triglycerides: Yes Ulcers: Yes Gallstones: Yes Heart Disease: Yes, sick sinus syndrome Lung Disease: No Liver problems: No Thyroid disease: Yes Kidney stones: Yes Diabetes: No Arthritis: No Depression or other mental illness: No Other personal illness: No Reviewed with patient. Signature: Jimbo Ozuna MD\ PHYSICAL EXAMINATION BP 146/84 Pulse 86 Temp 37 C (98.6 F) (Temporal) Ht 175.3 cm (5' 9 ) Wt 72.6 kg (160 lb) SpO2 100% BMI 23.63 kg/m General Appearance: alert, oriented x 3, pleasant and in no acute distress Eyes: No icterus or conjunctival pallor. Lungs: breath sounds clear to auscultation bilaterally Heart: regular rate and rhythm, no murmurs or gallops. Abdomen: Not distended. Normal bowel sounds. Soft with mid- abdominal tenderness. No masses or organomegaly. Extremities: no cyanosis or edema. Skin: no rashes or lesions IMPRESSION 54 year old female with chronic symptoms of GERD, abdominal pain and diarrhea. She presents today with worsening GERD symptoms after having been off meds for many years. Workup in 2009 showed normal esophageal manometry and Harris pH study OFF meds. We discussed pursuing repeat evaluation now and optimizing PPI use Last colonoscopy was 08/2008- normal colon and TI; normal colon biopsies. We discussed need to repeat for screening purposes but will wait until we better manage her upper GI symptoms due to prep. PLAN Symptomatic measures for GERD EGD under MAC Increase omeprazole to bid and take before meals Conservative measures to help with reflux Consider repeat Harris pH study, CT (given bloating and distention) and timing of screening colonoscopy based on above Physician attestation: I have confirmed and edited as necessary, the PFSH and ROS obtained by others. Jimbo Ozuna MD documented in this encounter [facility] 05-26-2024 Note HNO ID: [id number] Author: JIMBO OZUNA MD Service: ? Author Type: Physician Type: Progress Notes Filed: 05/26/2024 14:37 Note Text: NAME: [facility] NO: [id number] PRESENTING COMPLAINT This patient is self referred for evaluation of chronic GI symptoms I previously saw her in 2012- review of A/P as copied from 02/2012 note: Impression: 41 yo female with longstanding GI symptoms and elevated gastrin level (was 600 in 07/27 and then 57 (18-47) in 10/2008 after stopping Nexium). Of note, GERD symptoms started after surgery for fracture pacemaker lead. W/U so far negative for organic process. I have suspected a functional etiology with GERD as most likely etiologies for her symptoms. Now having recurrent symptoms with weight loss- of note she had weight loss in the past as well. I suggested restarting some of the meds that have helped her in the past and close F/U of weight and symptoms. Will also refer to Urology at [facility] to further discuss ?increasing number of renal lesions. Plan: 1. Restart Elavil at 25 mg qHS 2. Use Lomotil on a regular basis 3. Refer to Urology 4. Close F/U of weight- she gets weighed at her PCP's office q 2 weeks Jimbo Ozuna MD After that 2011 visit, she did better for several years- thinks that she never went back on Elavil; has used Lomotil rarely (3-4 times per year); stopped both Nexium and Pecid. Then ~1 year ago her reflux symptoms got worse again- started after pacemaker change. Got even worse in 02/2024 Currently symptoms are: - Acid reflux and burning- worse after eating but can happen on empty stomach - Gets regurgitation of food to back of throat especially at night- sleeps on 3 pillows and sometimes sleeps sitting up - Throat pain and cough with eating - 1 episode of ?dysphagia - Appetite is decreased- only eats once per day - 2 BMs per day; formed - No BRBPR - Bloating - Weight is up by 25 pounds over the past 2 years (since quitting smoking) She was started on omeprazole 1 year ago and carafate more recently Gets 1-2 hours between dinner and laying down Has been using Motrin- 600 mg 2-3 times per week Former smoker- quit 01/2002 PMH notable for: 1. Pacemaker for neurologic cardiosyncope 2. Hypothyroid following radioactive ablation for hyperthyroidism- on Synthroid 3. S/P bowel puncture during laporoscopy with subsequent leak and abscess in 1995- had short segment resection per patient Last EGD and colonoscopy were in 2008 Review of records as copied and modified from abstract note: CT Abd/Pelvis W/O IV contrast (2021): IMPRESSION: No acute intraabdominal pathology identified. No renal calculi or collecting system dilatation. Unchanged left renal cysts, no follow-up required. Labs (02/2024): Nl CMP and CBC other than WBC = 3.6 Nl amylase and lipase TSH- 0.02; FT4 normal Past surgical operations: PAST SURGICAL HISTORY Procedure Laterality Date PAST SURGICAL HISTORY OF 07/2006 Gallbladder Removed PAST SURGICAL HISTORY OF 09/2006 Change Pacemaker Add Lead(1 Fractured) PAST SURGICAL HISTORY OF 1996 Hysterectomy PAST SURGICAL HISTORY OF 1995 Removal of Left Ovary due to bowel puncture during laproscopy Medications: Current Outpatient Medications Medication Sig omeprazole (PRILOSEC) 40 mg capsule Take 40 mg by mouth once daily. sucralfate (CARAFATE) 1 gram tablet Take 1 g by mouth. levothyroxine sodium(SYNTHROID 100 MCG TAB) Take 88 mcg by mouth. metoprolol succinate ER (TOPROL XL) 25 mg 24 hr tablet Take 1 tablet by mouth once daily. diphenoxylate-atropine (LOMOTIL) 2.5-0.025 mg per tablet Take 2 tablets by mouth four times daily as needed. (Patient not taking: Reported on 05/26/2024) No current facility-administered medications for this visit. Allergies: Patient has no known allergies. PERSONAL HABITS: Tobacco: No Alcohol: Yes, How Many? Weekends PAST MEDICAL HISTORY: Colon polyps: No Colon cancer: No Other cancer: No Radiation / Chemotherapy: No Crohn's disease / Ulcerative colitis: No High cholesterol or triglycerides: Yes Ulcers: Yes Gallstones: Yes Heart Disease: Yes, sick sinus syndrome Lung Disease: No Liver problems: No Thyroid disease: Yes Kidney stones: Yes Diabetes: No Arthritis: No Depression or other mental illness: No Other personal illness: No Reviewed with patient. Signature: Jimbo Ozuna MD PHYSICAL EXAMINATION BP 146/84 Pulse 86 Temp 37 ?C (98.6 ?F) (Temporal) Ht 175.3 cm (5' 9 ) Wt 72.6 kg (160 lb) SpO2 100% BMI 23.63 kg/m? General Appearance: alert, oriented x 3, pleasant and in no acute distress Eyes: No icterus or conjunctival pallor. Lungs: breath sounds clear to auscultation bilaterally Heart: regular rate and rhythm, no murmurs or gallops. Abdomen: Not distended. Normal bowel sounds. Soft with mid- abdominal tenderness. No masses or organomegaly. Extremities: no cyanosis or edema. Skin: no rashe (more content not included)... [facility] 05-19-2024 Telephone encounter Note Pt was told to callback about a week ago to inform you of her update, She is currently not doing well. Her throat is hurting and feels like it is going to close on one side. She did take Motrin and feels that the swelling went down. Also she forgot to mention that she had a client in who had an accident In the bathroom and she had to clean up the feces. Could she have gotten sick from that, Could she have h - pyloria, the client had been in and out of nursing homes, could this have been something to affect her, she has an appt next Sunday at [facility] but she doesn't know what to do since she is still struggling and coughin . [phone] [facility] 05-19-2024 Miscellaneous Notes Pt was told to callback about a week ago to inform you of her update, She is currently not doing well. Her throat is hurting and feels like it is going to close on one side. She did take Motrin and feels that the swelling went down. Also she forgot to mention that she had a client in who had an accident In the bathroom and she had to clean up the feces. Could she have gotten sick from that, Could she have h - pyloria, the client had been in and out of nursing homes, could this have been something to affect her, she has an appt next Sunday at [facility] but she doesn't know what to do since she is still struggling and coughin . [phone] documented in this encounter [facility] 05-15-2024 History of Present illness Narrative Gilberto Payan Date of visit: 05/15/2024 Date of : 1970 Age: 53 y.o. Patient Active Problem List Diagnosis Disc displacement, thoracic Axillary lump, right Family history of breast cancer Presence of cardiac pacemaker- Bio 05/09/22 [place] Primary hypertension Allergies Allergen Reactions Vancomycin Hcl Rash Current Outpatient Medications Medication Sig Dispense Refill diphenoxylate-atropine (LOMOTIL) 2.5-0.025 mg per tablet Take 1 tablet by mouth 4 (four) times a day as needed for diarrhea. ibuprofen (ADVIL,MOTRIN) 800 mg tablet Take 1 tablet (800 mg total) by mouth as needed. levothyroxine (SYNTHROID, LEVOTHROID) 88 MCG tablet Take 1 tablet (88 mcg total) by mouth in the morning. omeprazole (PriLOSEC) 40 mg capsule Take 1 capsule (40 mg total) by mouth every morning before breakfast. sucralfate (CARAFATE) 1 gram tablet Take 1 tablet (1 g total) by mouth in the morning and 1 tablet (1 g total) at noon and 1 tablet (1 g total) in the evening and 1 tablet (1 g total) before bedtime. metoprolol succinate XL (TOPROL XL) 25 mg 24 hr tablet Take 4 tablets (100 mg total) by mouth in the morning. 360 tablet 3 No current facility-administered medications for this visit. Chief Complaint Patient presents with Follow-up pm check/jzl ov 17 month f/u Device Check Chest Pain Hypertension Med Refill History of Present Illness Ms. Payan is a 53F w/ PMH HTN, HLD, neurocardiogenic syncope, SSS and high degree heart block s/p BTK D-PPM 1999 (gen change Dr. Adonay Willis at [facility] [[email or web address] 04/2022) who presents to EP clinic at [place] for follow-up. She was last seen by me 12/06/22 at [place] and complained of pain at her device site. I explained at that appointment that it was likely nerve damage and that a pocket revision may not help with her symptoms. She also had one episode of vasovagal syncope and given her history of NCS, recommended lifestyle modifications/conservative management w/o initiation of midodrine/florinef unless more symptoms present. Patient presented the appointment with her today. Device interrogation of a Biotronik dual-chamber pacemaker implanted 05/09/2022 shows appropriate device function. Atrial pacing burden 77%, RV pacing burden 0%. Appropriate P and R-wave sensing, capture thresholds are stable, lead impedances are stable as well. Estimated battery life of 7 years remaining. No significant high ventricular atrial rate detections. She does have home monitoring. Patient is doing well from a rhythm and dysautonomia perspective. No recurrent syncopal spells since her last appointment with me. She does complain of abdominal discomfort that occurs throughout the day, can be related to food intake. She was undergone workup with an abdominal x-ray ordered by her PCP, which was nonrevealing. She has plans to see GI at [facility] in the beginning of May. She ran out of her Toprol 3 months ago, she was hypertensive today in clinic. She also brought in her recent lab work for cholesterol, total cholesterol 203, LDL of 98. She has also not been taking her rosuvastatin 10 mg q.day over the past several months. Past Medical History: Diagnosis Date Back pain 2020 COPD (chronic obstructive pulmonary disease) ([facility]) 2010 GERD (gastroesophageal reflux disease) Hyperlipidemia Hypertension Hypothyroidism Kidney cysts Lesion of both [place] kidneys Neurocardiogenic syncope Pacemaker Shingles 2012 Varicella 1998 No data recorded No data recorded No data recorded Past Surgical History: Procedure Laterality Date APPENDECTOMY ARM SURGERY Right arm from injury ARM WOUND REPAIR / CLOSURE CARDIAC PACEMAKER PLACEMENT x3 CHOLECYSTECTOMY COLON SURGERY Bowel resection COLONOSCOPY 2011 HYSTERECTOMY 2003 LYMPH NODE BIOPSY 2005?? SKIN BIOPSY 2019 Family History Problem Relation Age of Onset Coronary artery disease Mother Heart disease Mother Hypertension Mother Diabetes Father Heart disease Father Hypertension Father Colon cancer Maternal Grandmother Testicular cancer Maternal Grandfather Breast cancer Maternal great-grandmother Breast cancer Maternal cousin BRCA 1/2 Maternal cousin BRCA 1/2 Maternal cousin BRCA 1/2 Maternal cousin Breast cancer Other maternal great-mary Social History Socioeconomic History Marital status: Single Spouse name: Not on file Number of children: Not on file Years of education: Not on file Highest education level: Not on file Occupational History Not on file Tobacco Use Smoking status: Former Current packs/day: 0.00 Average packs/day: 1 pack/day for 30.0 years (30.0 ttl pk-yrs) Types: Cigarettes Start date: 1990 Quit date: 2020 Years since quittin.9 Smokeless tobacco: Never Vaping Use Vaping status: Every Day Substances: Flavoring Devices: Disposable Substance and Sexual Activity Alcohol use: Yes Comment: socailly Drug use: No Sexual activity: Defer Other Topics Concern Caffeine Use Yes Social History Narrative Not on file Social Drivers of Health Financial Resource Strain: Patient Declined (03/08/2024) Received from [facility] Overall Financial Resource Strain (CARDIA) Difficulty of Paying Living Expenses: Patient declined Food Insecurity: Unknown (03/08/2024) Received from [facility] Hunger Vital Sign Worried About Running Out of Food in the Last Year: Patient declined Ran Out of Food in the Last Year: Never true Transportation Needs: No Transportation Needs (03/08/2024) Received from [facility] PRAPARE - Transportation Lack of Transportation (Medical): No Lack of Transportation (Non-Medical): No Physical Activity: Inactive (03/08/2024) Received from [facility] Exercise Vital Sign Days of Exercise per Week: 0 days Minutes of Exercise per Session: 0 min Stress: No Stress Concern Present (03/08/2024) Received from [facility] [employer] - Occupational Stress Questionnaire Feeling of Stress : Not at all Social Connections: Unknown (03/08/2024) Received from [facility] Social Connection and Isolation Panel [NHANES] Frequency of Communication with Friends and Family: Three times a week Frequency of Social Gatherings with Friends and Family: Once a week Attends Quaker Services: Patient declined Active Member of Clubs or Organizations: No Attends Club or Organization Meetings: Never Marital Status: Interpersonal Safety: Unknown (07/12/2023) Received from [facility] Fear of Current or Ex-Partner: Not on file Emotionally Abused: Not on file Physically Abused: Not on file Sexually Abused: Not on file Physically or Sexually Abused: Not on file Housing Instability: Unknown (03/08/2024) Received from [facility] Housing Stability Vital Sign Unable to Pay for Housing in the Last Year: Patient declined Number of Times Moved in the Last Year: Not on file Homeless in the Last Year: No Review of Systems Review of Systems Constitutional: Negative for malaise/fatigue. HENT: Negative for nosebleeds. Respiratory: Negative for cough, hemoptysis and shortness of breath. Hematologic/Lymphatic: Does not bruise/bleed easily. Musculoskeletal: Negative for falls, joint swelling, muscle cramps and muscle weakness. Gastrointestinal: Positive for heartburn (acid reflux). Negative for hematochezia. Genitourinary: Negative for hematuria. Neurological: Negative for dizziness, headaches and light-headedness. CARDIOVASCULAR: Please review HPI. Physical Examination General appearance: Alert, oriented and cooperative. In no acute distress. Skin: Warm and dry to touch. Head: Normocephalic, without obvious abnormality, atraumatic. Ears, Nose, Mouth, Throat: Throat clear without erythema or exudate. Dentition intact. Eyes: Conjunctivae unremarkable, EOM intact. Neck: No JVD, No carotid bruit. Neck supple, trachea midline. Respiratory: Clear to auscultation bilaterally, no use of accessory muscles. Cardiovascular: RRR with normal S1 and S2 with no murmurs. Gastrointestinal: Soft, non-tender. Bowel sounds normal. Musculoskeletal: No peripheral edema. Neurologic: Oriented to time, person and place, affect appropriate. No focal/major motor defects noted. Psychiatric: Appropriate mood, memory and judgement. VITAL SIGNS: BP (!) 160/92 (BP Site: Left Arm, BP Postition: Sitting, BP CUFF SIZE: M (9-13 inches)) Pulse 77 Ht 175.3 cm (5' 9 ) Wt 72.8 kg (160 lb 9.6 oz) BMI 23.72 kg/m Orders Placed or Reconciled This Encounter Medications omeprazole (PriLOSEC) 40 mg capsule Sig: Take 1 capsule (40 mg total) by mouth every morning before breakfast. sucralfate (CARAFATE) 1 gram tablet Sig: Take 1 tablet (1 g total) by mouth in the morning and 1 tablet (1 g total) at noon and 1 tablet (1 g total) in the evening and 1 tablet (1 g total) before bedtime. levothyroxine (SYNTHROID, LEVOTHROID) 88 MCG tablet Sig: Take 1 tablet (88 mcg total) by mouth in the morning. metoprolol succinate XL (TOPROL XL) 25 mg 24 hr tablet Sig: Take 4 tablets (100 mg total) by mouth in the morning. Dispense: 360 tablet Refill: 3 Medications Discontinued During This Encounter Medication Reason levothyroxine (SYNTHROID, LEVOTHROID) 125 MCG tablet Dose adjustment metoprolol tartrate (LOPRESSOR) 100 mg tablet Reorder raNITIdine (ZANTAC) 150 mg tablet Alternate therapy rosuvastatin (CRESTOR) 10 mg tablet Reorder IMPRESSIONS/PLAN 1. Presence of cardiac pacemaker - Device Interrogation; Future Neurocardiogenic syncope: History of dysautonomia complicated by recurrent syncopal events, status post Biotronik dual-chamber pacemaker programmed DDD-CLS. No recurrent syncopal episodes over the past year plus, doing well from this perspective. No significant programming changes were made to her pacemaker, she should continue Q three-month remote checks and yearly in clinic device checks. Hypertension: Patient was quite hypertensive today with systolic blood pressures near 170. She has not been on any antihypertensives as she ran out of her prescription, Toprol 100 mg q.day was ordered. I asked her to report back in 1-2 weeks her daily blood pressures and if still elevated, may benefit from additional antihypertensive agents. Hyperlipidemia: Most recent cholesterol from February of 2024 shows relatively decent control off of her prior rosuvastatin 10 mg daily. These values are not significantly changed from November of 2022. At this point, I would favor not starting any cholesterol medications and repeating lipid panel in 1 year. I also discussed that this usually as managed by primary care physician in that she should follow-up with them regarding this for the future. Return visit 1 year with device check. TODAYS ORDERS Orders Placed This Encounter Procedures Device Interrogation FOLLOW UP Return in about 1 year (around 05/15/2025), or if symptoms worsen or fail to improve. PCP: PCP Not In System Referring Physician: No referring provider defined for this encounter. documented in this encounter [facility] 05-15-2024 History of Present illness Narrative I agree with the findings in the scanned document. documented in this encounter [facility] 05-01-2024 History of Present illness Narrative Images from the original note were not included. Gilberto Payan is a 53 y.o. female presents with chief complaint of Sore Throat HPI: HPI Patient is present with c/o sore throat. Patient has been having acid reflux, vomiting. Patient has been having difficulty eating and drinking. She states this has been ongoing for the past 6-8 months and has been worsening. She recently stopped her Omeprazole and Levothyroxine to see if it helped symptoms. Patent states that today is better than yesterday. Patient is scheduled to see GI at [facility] on . SUBJECTIVE: MEDICATIONS: Current Outpatient Medications Medication Instructions amLODIPine (Norvasc) 5 MG tablet budesonide-formoterol (Symbicort) 160-4.5 MCG/ACT inhaler 2 puffs diphenoxylate-atropine (Lomotil) 2.5-0.025 MG tablet Take 1 tablet 4 times a day by oral route as needed. hydroCHLOROthiazide (HYDRODiuril) 12.5 MG tablet 1 tablet, Daily levothyroxine (SYNTHROID) 88 mcg, Oral, Daily before breakfast lisinopril 10 MG tablet Every 24 hours metoprolol tartrate (LOPRESSOR) 100 mg, Daily RT omeprazole (PRILOSEC) 40 mg, Oral, Daily before breakfast, Do not crush or chew. ondansetron ODT (Zofran-ODT) 4 MG disintegrating tablet rosuvastatin (CRESTOR) 10 mg, Daily RT terbinafine (LamISIL) 250 MG tablet Take 1 tablet, by mouth, once daily Vitamin D 50 mcg, Oral, Weekly I have reviewed and reconciled the history and medication list with the patient today. REVIEW OF SYMPTOMS: Review of Systems Constitutional: Negative for chills and fatigue. HENT: Positive for sore throat. Negative for ear discharge, ear pain and rhinorrhea. Eyes: Negative for pain and redness. Respiratory: Negative for cough and chest tightness. Cardiovascular: Negative for chest pain and palpitations. Gastrointestinal: Positive for nausea and vomiting. Negative for abdominal distention and abdominal pain. Genitourinary: Negative for difficulty urinating and frequency. Musculoskeletal: Negative for arthralgias and gait problem. Skin: Negative. Neurological: Negative for dizziness and numbness. Endocrine: Negative. Allergic/Immunologic: Negative. OBJECTIVE: Visit Vitals Smoking Status Former Physical Exam Vitals reviewed. Cardiovascular: Rate and Rhythm: Normal rate and regular rhythm. Pulses: Normal pulses. Heart sounds: Normal heart sounds. Pulmonary: Effort: Pulmonary effort is normal. Breath sounds: Normal breath sounds. Abdominal: General: Abdomen is flat. Bowel sounds are normal. Palpations: Abdomen is soft. Musculoskeletal: General: Normal range of motion. Skin: General: Skin is warm and dry. Neurological: General: No focal deficit present. Mental Status: She is oriented to person, place, and time. ASSESSMENT AND PLAN: Assessment/Plan Diagnoses and all orders for this visit: Primary hypertension (CMS/HCC)-stable continue on current medications. Gastroesophageal reflux disease, unspecified whether esophagitis present Nausea and vomiting, unspecified vomiting type History of stomach ulcers-will trial carafate. Patient has appointment with [facility]. - sucralfate (Carafate) 1 g tablet; Take 1 tablet (1 g) by mouth in the morning and 1 tablet (1 g) at noon and 1 tablet (1 g) in the evening and 1 tablet (1 g) before bedtime. Take before meals. documented in this encounter [facility] 03-17-2024 History of Present illness Narrative Prescription sent and orders placed documented in this encounter [facility] 03-12-2024 History of Present illness Narrative Images from the original note were not included. Gilberto Payan is a 53 y.o. female presents with chief complaint of No chief complaint on file. HPI: Answers submitted by the patient for this visit: Abdominal Pain Questionnaire (Submitted on 03/08/2024) Chief Complaint: Abdominal pain Chronicity: chronic Onset: more than 1 year ago Onset quality: undetermined Frequency: daily Progression since onset: gradually worsening Pain location: RLQ, epigastric region Pain - numeric: 6/10 Pain quality: cramping Radiates to: RLQ anorexia: No arthralgias: No belching: Yes constipation: No diarrhea: No dysuria: No fever: No flatus: Yes frequency: No headaches: Yes hematochezia: No hematuria: No melena: No myalgias: No nausea: No weight loss: No vomiting: No Aggravated by: nothing Relieved by: nothing Abdominal Pain This is a chronic problem. The current episode started more than 1 year ago. The onset quality is undetermined. The problem occurs daily. The problem has been gradually worsening. The pain is located in the RLQ and epigastric region. The pain is at a severity of 6/10. The quality of the pain is cramping. The abdominal pain radiates to the RLQ. Associated symptoms include belching, flatus and headaches. Pertinent negatives include no anorexia, arthralgias, constipation, diarrhea, dysuria, fever, frequency, hematochezia, hematuria, melena, myalgias, nausea, vomiting or weight loss. Nothing aggravates the pain. The pain is relieved by Nothing. SUBJECTIVE: MEDICATIONS: Current Outpatient Medications Medication Instructions amLODIPine (Norvasc) 5 MG tablet budesonide-formoterol (Symbicort) 160-4.5 MCG/ACT inhaler 2 puffs, Inhalation diphenoxylate-atropine (Lomotil) 2.5-0.025 MG tablet Take 1 tablet 4 times a day by oral route as needed. hydroCHLOROthiazide (HYDRODiuril) 12.5 MG tablet 1 tablet, Oral, Daily levothyroxine (SYNTHROID) 112 mcg, Oral, Daily before breakfast lisinopril 10 MG tablet Every 24 hours metoprolol tartrate (LOPRESSOR) 100 mg, Oral, Daily RT omeprazole (PRILOSEC) 40 mg, Oral, Daily before breakfast, Do not crush or chew. ondansetron ODT (Zofran-ODT) 4 MG disintegrating tablet raNITIdine HCl (ZANTAC 75 PO) Oral rosuvastatin (CRESTOR) 10 mg, Oral, Daily RT terbinafine (LamISIL) 250 MG tablet Take 1 tablet, by mouth, once daily Vitamin D 50 mcg, Oral, Weekly I have reviewed and reconciled the history and medication list with the patient today. REVIEW OF SYMPTOMS: Review of Systems Constitutional: Negative for fever and weight loss. Gastrointestinal: Positive for abdominal pain and flatus. Negative for anorexia, constipation, diarrhea, hematochezia, melena, nausea and vomiting. Genitourinary: Negative for dysuria, frequency and hematuria. Musculoskeletal: Negative for arthralgias and myalgias. Neurological: Positive for headaches. OBJECTIVE: Visit Vitals Smoking Status Former Physical Exam Vitals reviewed. Cardiovascular: Rate and Rhythm: Normal rate and regular rhythm. Pulses: Normal pulses. Heart sounds: Normal heart sounds. Pulmonary: Effort: Pulmonary effort is normal. Breath sounds: Normal breath sounds. Abdominal: General: Abdomen is flat. Bowel sounds are normal. Palpations: Abdomen is soft. There is no mass. Tenderness: There is abdominal tenderness. There is no guarding. Musculoskeletal: General: Normal range of motion. Skin: General: Skin is warm and dry. Neurological: General: No focal deficit present. Mental Status: She is oriented to person, place, and time. ASSESSMENT AND PLAN: Assessment/Plan Diagnoses and all orders for this visit: Generalized abdominal pain - Amylase; Future - Lipase; Future Await results referral to gi Chronic obstructive pulmonary disease, unspecified (CMS/HCC) Sick sinus syndrome (CMS/HCC) Primary hypertension (CMS/HCC)-stable continue on current medications - Comprehensive metabolic panel; Future Diarrhea, unspecified type-await results Gastroesophageal reflux disease, unspecified whether esophagitis present-stable Encounter for annual wellness exam in Medicare patient - Comprehensive metabolic panel; Future - CBC and differential; Future - Lipid panel; Future - TSH W/REFLEX TO FT4; Future - Vitamin D 25 hydroxy; Future Acquired hypothyroidism (CMS/HCC)await results - TSH W/REFLEX TO FT4; Future Depressive disorder (CMS/HCC)-stable Cigarette smoker Dyslipidemia (CMS/HCC) - Lipid panel; Future Exhaustion of cardiac pacemaker battery Family history of malignant neoplasm of gastrointestinal tract Mixed hyperlipidemia (CMS/HCC) Sinus node dysfunction (CMS/HCC) - CBC and differential; Future Vitamin D deficiency - Vitamin D 25 hydroxy; Future Obstructive sleep apnea syndrome Cysts on kidney-follow up with urology as advised documented in this encounter [facility] 05-09-2022 Evaluation note Diagnosis Presence of cardiac pacemaker- Bio 05/09/22 Lazaro- Primary Cardiac pacemaker in situ documented in this encounter [facility]* Diagnosis Generalized abdominal pain- Primary Abdominal pain, generalized Chronic obstructive pulmonary disease, unspecified COPD type (CMS/HCC) Sick sinus syndrome (CMS/HCC) Sinoatrial node dysfunction Primary hypertension (CMS/HCC) Unspecified essential hypertension Diarrhea, unspecified type Gastroesophageal reflux disease, unspecified whether esophagitis present Encounter for annual wellness exam in Medicare patient Acquired hypothyroidism (CMS/HCC) Unspecified hypothyroidism Depressive disorder (CMS/HCC) Depressive disorder, not elsewhere classified Cigarette smoker Tobacco use disorder Dyslipidemia (CMS/HCC) Other and unspecified hyperlipidemia Exhaustion of cardiac pacemaker battery Fitting and adjustment of cardiac pacemaker Family history of malignant neoplasm of gastrointestinal tract Mixed hyperlipidemia (CMS/HCC) Mixed hyperlipidemia Sinus node dysfunction (CMS/HCC) Vitamin D deficiency Obstructive sleep apnea syndrome Obstructive sleep apnea (adult) (pediatric) Other chronic pain Presence of cardiac pacemaker Cardiac pacemaker in situ 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 Unspecified disorder of kidney and ureter Disc displacement, 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 History of methicillin resistant Staphylococcus aureus infection Family history of breast cancer Family history of malignant neoplasm of breast Family history of endocrine disorder Other fatigue H/O: hysterectomy Acquired absence of both cervix and uterus Hallucination, visual Migraine without aura and without status migrainosus, not intractable (CMS/HCC) Tobacco dependence syndrome Tobacco use disorder History of bowel resection documented in this encounter [facility]* Diagnosis Acquired hypothyroidism (CMS/HCC)- Primary Unspecified hypothyroidism documented in this encounter [facility]* Diagnosis Primary hypertension (CMS/HCC)- Primary Unspecified essential hypertension Gastroesophageal reflux disease, unspecified whether esophagitis present Nausea and vomiting, unspecified vomiting type History of stomach ulcers documented in this encounter [facility]* Diagnosis Presence of cardiac pacemaker- Primary Cardiac pacemaker in situ documented in this encounter [facility]* Diagnosis Gastroesophageal reflux disease without esophagitis- Primary Esophageal reflux Bloating Flatulence, eructation, and gas pain [facility] Diagnosis Acquired hypothyroidism (CMS/HCC) Unspecified hypothyroidism documented in this encounter [facility]* Diagnosis Acquired hypothyroidism (CMS/HCC) Unspecified hypothyroidism [facility] HospitalInstructionsNot on filedocumented in this encounterProOhio[facility] SystemInstructionsNot on filedocumented in this encounterProOhiohealth [facility] SystemReason for referral (narrative)* Outpatient Procedure (Routine) - Authorized Specialty Diagnoses / Procedures Referred By Chelsy t Referred To Contact [facility] Diagnoses Gastroesophageal reflux disease without esophagitis Procedures EGD DIAGNOSTIC ESOPHAGOGASTRODUODENOSC OPY TRANSORAL DIAGNOSTIC Jimbo Ozuna MD [address] [place] [facility] [place] [place] [address] [facility] [address] [place] [id number] Referral ID Status Reason Start Date Expiration Date Visits Requested Visits Authorized [id number] Authorized Auto-Generat ed Referral 05/26/2024 05/26/2025 1 1 [facility] Summary Purpose Family History No Family History Records FoundNo Family History Records FoundNo Family History Records FoundNo Family History Records FoundNo Family History Records FoundNo Family History Records FoundNo Family History Records FoundNo Family History Records FoundNo Family History Records FoundNo Family History Records Found Advance Directives No Advanced Directives Records FoundDocuments on File Type Date Recorded Patient Floors Buffer Expl anation ACP-Advance Directive ACP-Power of Cosmetician Apprentice Documents on File Type Date Recorded Patient Floors Buffer Expl anation ACP-Advance Directive ACP-Power of Cosmetician Apprentice Assessments Diagnosis Preoperative testing Preoperative examination, unspecified Diagnosis Post-operative pain- Primary Other acute postoperative pain Discharge Instructions * Instructions* Fany Fermin PA-C - 06/09/2020 Ureteroscopy Discharge Instructions: Take prescriptions as directed, ensuring you take entire course of antibiotic. No driving while taking narcotic pain medication. Wean off narcotics as soon as able. OK to shower after discharge. May resume regular diet. No heavy lifting >10lbs day of procedure, avoid strenuous activity, may walk. You may have a string taped to your pelvis, genitalia, or inner thigh. Please take care while showering/wiping that you do not tug on the string and dislodge your indwelling stent early. OK to remove stent by pulling the string straight out in 5 days. Please call the office if you havedifficulty removing your stent You may see blood in the urine after the procedure and entire time stent is in place. This should resolve over the next couple days. Please stay hydrated. You may experience flank pain, and/or frequency/urgency of urination while the stent is in place. Please use Flomax (Tamsulosin) to help with these symptoms. Please call attending physician or hospital insulation extruder operator with questions. Please call or present to ED for fever >101 F, intractable nausea and vomiting, or uncontrolled pain. Follow up with Dr. Alex in 6 weeks with renal ultrasound prior to appointment. Call office to confirm appointment. Pt should pull stent in the morning of 06/14/20. There may be some pain associated with the stent removal, which is usually self limiting. We suggest using the pain medication prescribed for you and anonsteroidal anti-inflammatory such as Ibuprofen, if you are able to take this medication, to control symptoms. Take Ibuprofen as directed for 24 hrs after stent pull. Please stay hydrated. Please call with questions. documented in this encounter Additional Source Comments INFORMATION SOURCE (unrecogn ized section and content) DATE CREATED AUTHOR 07/10/2018 [facility] DATE CREATED AUTHOR AUTHOR'S ORGANIZ ATION 06/10/2020 [facility] DATE CREATED AUTHOR AUTHOR'S ORGANIZ ATION 06/12/2020 [facility] DATE CREATED AUTHOR AUTHOR'S ORGANIZ ATION 10/25/2021 [facility] DATE CREATED AUTHOR AUTHOR'S ORGANIZ ATION 07/11/2022 [facility] DATE CREATED AUTHOR AUTHOR'S ORGANIZ ATION 09/20/2023 [facility] DATE CREATED AUTHOR AUTHOR'S ORGANIZ ATION 05/17/2024 [facility] DATE CREATED AUTHOR AUTHOR'S ORGANIZ ATION 06/01/2024 [facility] DATE CREATED AUTHOR AUTHOR'S ORGANIZ ATION 08/01/2024 [facility] DATE CREATED AUTHOR AUTHOR'S ORGANIZ ATION 08/08/2024 [facility] EPIC Reason for Visit (unrecogniz ed section and content) Status Reason Specialty Diagnoses / Procedures Referre d By Contact Referred To Contact Diagnoses Ureteral stone URETERAL STONE Procedures VT CYSTO/URETERO W/LITHOTRIPSY &INDWELL STENT INSRT HOLMIUM- CYSTO, URETEROSCOPY, LASER LITHO, STENT PLACEMENT Eugene Alex MD [address] [facility] [address] [place] [address] [facility] Reason Comments Medicare Annual Wellness Visit Subsequen t Reason Comments Sore Throat Reason Comments Follow-up pm check/jzl ov 17 m onth f/u Device Check Chest Pain Hypertension Med Refill Reason Comments New Patient GERD, abd pain, acid reflux Ordered Prescriptions (unrec ognized section and content) Prescription Sig Dispensed Refills Start Date End Da te ciprofloxacin (CIPRO) 500 MG tablet Take 1 tablet by mouth 2 times daily for 3 days 6 tablet 0 06/09/2020 06/12/2020 HYDROcodone-acetaminophen (NORCO) 5-325 MG per tabletIndications:Post-op erative pain Take 1 tablet by mouth every 6 hours as needed for Pain for up to [address] Alex 12 tablet 0 06/09/2020 06/12/2020 Care Teams (unrecognized sec tion and content) Professional Services Consultant Relationship Specialty Start Date End Date Shani Gama DO [address] [place] [address] PCP - ACO Reach 07/20/23 Marietta Ruvalcaba MD [address] [place] [address] PCP - General Family Medicine 03/03/24 Jaqueline Yost [employer] [address] [place] [address] Nurse Practitioner Family Medicine 03/03/24 Professional Services Consultant Relationship Specialty Start Date End Date Shani Gama DO [address] [place] [address] PCP - ACO Reach 07/20/23 Marietta Ruvalcaba MD [address] [place] [address] PCP - General Family Medicine 03/03/24 Jaqueline Yost [employer] [address] [place] [address] Nurse Practitioner Family Medicine 03/03/24 Professional Services Consultant Relationship Specialty Start Date End Date Shani Gama DO [address] [place] [address] PCP - ACO Reach 07/20/23 Marietta Ruvalcaba MD [address] [place] [address] PCP - General Family Medicine 03/03/24 Jaqueline Yost NP [address] [place] [address] Nurse Practitioner Family Medicine 03/03/24 Professional Services Consultant Relationship Specialty Start Date End Date Shani Gama DO [address] [place] [address] PCP - ACO Reach 07/20/23 Marietta Ruvalcaba MD [address] [place] [address] PCP - General Family Medicine 03/03/24 Jaqueline Yost NP [address] [place] [address] Nurse Practitioner Family Medicine 03/03/24 Professional Services Consultant Relationship Specialty Start Date End Date Shani Gama DO [address] [place] [address] PCP - ACO Reach 07/20/23 Marietta Ruvalcaba MD [address] [place] [address] PCP - General Family Medicine 03/03/24 Jaqueline Yost NP [address] [place] [address] Nurse Practitioner Family Medicine 03/03/24 Professional Services Consultant Relationship Specialty Start Date End Date Pcp, [place] [address] PCP - General Family Medicine 09/19/23 Professional Services Consultant Relationship Specialty Start Date End Date Pcp, [place] [address] PCP - General Family Medicine 09/19/23 Professional Services Consultant Relationship Specialty Start Date End Date Shani Gama DO [address] [place] [address] PCP - ACO Reach 07/20/23 Marietta Ruvalcaba MD [address] [facility] [place] [address] PCP - General Family Medicine 03/03/24 Jaqueline Yost NP [address] [facility] [place] [address] Nurse Practitioner Family Medicine 03/03/24 Professional Services Consultant Relationship Specialty Start Date End Date Dominic Donnelly PCP - General 12/28/09 Professional Services Consultant Relationship Specialty Start Date End Date Shani Gama DO [address] [place] [address] PCP - ACO Reach 07/20/23 06/26/24 Marietta Ruvalcaba MD [address] [facility] [place] [address] PCP - General Family Medicine 03/03/24 Jaqueline Yost NP [address] [place] [address] Nurse Practitioner Family Medicine 03/03/24 Source Comments (unrecognize d section and content) In the event this informatio n is protected by the Federal Confidentiality of Alcohol and Drug Abuse Patient Records regulations: The Federal rules restrict any use of the information to criminally investigate or prosecute any alcohol or drug abuse patient.[facility] CompanyIn the event this information is protected by the Federal Confidentiality of Alcohol and Drug Abuse Patient Records regulations: The Federal rules restrict any use of the information to criminally investigate or prosecute any alcohol or drug abuse patient.[facility] FOR RECORDS PERTAINING TO PATIENTS WHO ARE OR HAVE BEEN ENROLLED IN A CHEMICAL DEPENDENCY/SUBSTANCEABUSE PROGRAM, SOME INFORMATION MAY BE OMITTED. This clinical summary was aggregated from multiple sources. Caution should be exercised in using it in the provision of clinical care. This summary normalizes information from multiple sources, and as a consequence, information in this document may materially change the coding, format and clinical context of patient data. In addition, data may be omitted in some cases. CLINICAL DECISIONS SHOULD BE BASED ON THE PRIMARY CLINICAL RECORDS. [facility]. provides no warranty or guarantee of the accuracy or completeness of information in this document.
== END 2024-08-08 09:15 | disposition home or self-care (01) ==
LOC: CT 09:14
PROVIDERS: PCP Nurse Practitioner Family; Visit Provider Nurse Practitioner Family
DX: R51.9 Headache, unspecified (principal)
CPT/HCPCS: 70450

== ENCOUNTER 2024-08-30 19:35 | Emergency (ER) | payer MEDICARE, SELFPAY ==
[2024-08-30] VITALS (16 sets, daily range): BP systolic 109–164; BP diastolic 76–91; PULSE 76–83; TEMP 37.4; O2SAT 99–100; BMI 23.6
--- OUTSIDE RECORDS SUMMARY | 2024-08-30 19:41 | XMS_ITS | CCD ---
Author Organization [facility] Care Team Providers Care Pier Master Name Role Phone Jhoana Macias Attending Unavailable Dominic Donnelly Primary Care Provider BRYAN PATEL Referring Unavailable DOMINIC DONNELLY Primary Care Unavailable ISAI, EUGENE S Admitting Unavailable ISAI, EUGENE S Attending Unavailable DOMINIC DONNELLY Primary Care Unavailable DOMINIC DONNELLY Primary Care Unavailable ARIELLE REED Attending Unavailable ARIELLE REED Admitting Unavailable DOMINIC DONNELLY Referring Unavailable BIBI, DR ALFARO Primary Care Unavailable LEANDRO, DR CHANG Hawkins Admitting Unavailabl e LEANDRO, DR CHANG Hawkins Attending Unavailabl e TONNY ., ZAFAR NOLASCO Consulting Unavailabl e ISMAEL MOYER Consulting Unavailable ISAI, EUGENE S Referring Unavailable PCP, NOT IN SYSTEM Primary Care Unavailable ISAI, EUGENE S Referring Unavailable PCP, NOT IN SYSTEM Primary Care Unavailable Shani Gama DO G Unavailable Marietta Ruvalcaba MD Primary Care Provider Jaqueline Yost NP Unavailable Pcp, Not In System Primary Care Provider Unavail able PCP, NOT IN SYSTEM Primary Care Unavailable AMINA BETTS Attending Unavailable PCP, NOT IN SYSTEM Primary Care Unavailable Dominic Donnelly Primary Care Provider [phone] JIMBO OZUNA Attending Unavailable JIMBO OZUNA Referring Unavailable DOMINIC DONNELLY Primary Care Unavailabl e Shani Gama DO G Unavailable JAQUELINE YOST Attending Unavailab JAQUELINE Pham Attending Unavailab JAQUELINE Pham Referring Unavailab JAQUELINE Pham Attending Unavailab ZHANNA Paula Attending Unavailable Allergies Allergy Classification Reported Allergen(s) Allergy Type Date of Onset Reaction(s) Facility (1 source) 03817,00; Translations: [64516,00] Propensity to adverse reactions (disorder) 9 [facility] Repository (4 sources) Vancomycin; Translations: [VANCOMYCIN HCL] Drug Allergy 2 Rash [facility] Repository (12 sources) Vancomycin Drug Allergy 2 Rash [facility] [...] Alex 0 05/27/2020 06/09/2020 Discontinued (REORDER) amLODIPine 10 mg oral tablet (12 sources) Dihydropyridine Calcium Channel Eliseo Start: 08-05-2024 take 1 tablet by mouth once daily amLODIPine (Norvasc) 10 MG tablet Indications: Primary hypertension (CMS/HCC) Take 1 tablet (10 mg) by mouth Daily 90 tablet 3 08/05/2024 Active Start: 11-15-2022 amLODIPine (No rvasc) 5 MG tablet 11/15/2022 Active atropine sulfate 0.025 mg / diphenoxylate hydrochloride 2.5 mg oral tablet (17 sources) Anticholinergic, Cholinergic Muscarinic Antagonist, Antidiarrheal Start: 02-26-2012 take 2 tablets by mouth every six hours as needed diphenoxylate-atropine (LOMOTIL) 2.5-0.025 mg per tablet Take 2 tablets by mouth four times daily as needed. 240 tablet 4 02/26/2012 Active Start: 02-26-2012 End: 06-04-2020 take 2 tablets by mouth once diphenoxylate-atropine (LOMOTIL) 2.5-0.025 MG per tablet Take 2 tablets by mouth. 0 02/26/2012 06/04/2020 Discontinued (Therapy completed) 60 actuat budesonide 0.16 mg/actuat / formoterol fumarate 0.0045 mg/actuat metered dose inhaler (14 sources) Corticosteroid, beta2-Adrenergic Agonist budesonide-form oterol (Symbicort) [...] ringers infusion cholecalciferol 0.05 mg oral capsule (14 sources) Vitamin D Start: 04-05-2023 End: 04-04-2024 [...] 25 mcg hydroCHLOROthiazide 12.5 mg oral tablet (12 sources) Thiazide Diuretic take 1 tablet by [...] Active levothyroxine sodium 0.088 mg oral tablet (20 sources) l-Thyroxine Start: 07-15-2024 take 1 tablet by mouth once daily levothyroxine (Synthroid) 88 MCG tablet Indications: Acquired hypothyroidism (CMS/HCC) Take 1 tablet (88 mcg) by mouth Daily Take on an empty stomach 90 tablet 1 07/15/2024 Active Start: 06-27-2024 take 1 tablet by che th once daily levothyroxine (Synthroid) 88 MCG tablet [...] omeprazole 40 mg delayed release oral capsule (17 sources) Proton Pump Inhibitor Start: 04-04-2023 take [...] Active rosuvastatin calcium 10 mg oral tablet (14 sources) HMG-CoA Reductase Inhibitor Start: 11-15-2022 End: [...] 10 mL sucralfate 1000 mg oral tablet (10 sources) Aluminum Complex Start: 05-01-2024 take 1 [...] 05-27-2020 tamsulosin (FLOMAX) 0.[address] Isai Vallejo 05/27/2020 Active terbinafine 250 mg oral tablet [...] unspecified] Onset: 1 01-10-2023 Chronic Esophageal disorders (19 sources) Gastroesophageal reflux disease; Translations: [Gastro-esophageal reflux disease without esophagitis] Onset: 6 01-10-2023 Chronic Essential hypertension (20 sources) Essential hypertension; Translations: [Essential (primary) hypertension] Onset: 3 01-10-2023 Chronic Fever of unknown origin (4 sources) Fever, unspecified; Translations: [FEVER UNSPECIFIED] Onset: 3 Episodic Gastroduodenal ulcer (except hemorrhage) (2 sources) H/O: gastric ulcer; Translations: [Personal history of peptic ulcer disease] 05-01-2024 Episodic Headache; including migraine (14 sources) Migraine without aura, not refractory ; Translations: [Migraine without aura, not intractable, without status migrainosus] Onset: 7 01-10-2023 Chronic Miscellaneous mental health disorders (7 sources) Bulimia nervosa; Translations: [Bulimia] 05-01-2024 Chronic Mood disorders (14 sources) Depressive disorder; Translations: [Depressive disorder] Onset: 3 01-10-2023 Chronic Nonspecific chest pain (1 source) Chest pain Onset: 4 Episodic Nutritional deficiencies (14 sources) Vitamin D deficiency; Translations: [Vitamin D deficiency, unspecified] Onset: 2 01-10-2023 Chronic Other diseases of kidney and ureters (14 sources) Renal mass; Translations: [Other specified disorders of kidney and ureter] Onset: 3 01-10-2023 Chronic Other gastrointestinal disorders (2 sources) Abdominal bloating; Translations: [Abdominal distension (gaseous)] 05-26-2024 Episodic Other gastrointestinal disorders (1 source) Abdominal distension (gaseous); Translations: [Bloating] Onset: 5 Episodic Other lower respiratory disease (2 sources) Other forms of dyspnea; Translations: [Other forms of dyspnea] Onset: 5 Episodic Other nervous system disorders (14 sources) Chronic pain; Translations: [Other chronic pain] Onset: 9 01-10-2023 Chronic Other nervous system disorders (1 source) Postoperative pain ; Translations: [Post-operative pain] Episodic Residual codes; unclassified (12 sources) Sleep apnea; Translations: [Sleep apnea, unspecified] [...] Spondylosis; intervertebral disc disorders; other back problems (16 sources) Prolapsed thoracic intervertebral disc; Translations: [Other intervertebral disc displacement, thoracic region] Onset: 9 01-10-2023 Chronic Substance-related disorders (20 sources) Light cigarette smoker; Translations: [Nicotine dependence, cigarettes, uncomplicated] Onset: 1 Resolved: 4 01-10-2023 Chronic Thyroid disorders (19 sources) Acquired hypothyroidism; Translations: [Hypothyroidism, unspecified] Onset: [...] Date Documented Da te Episodic/Chronic Abdominal pain (20 sources) Abdominal pain; Translations: [Unspecified abdominal pain] Onset: 2 08-31-2014 Episodic Acute bronchitis (12 sources) Acute bronchitis; Translations: [Acute bronchitis, unspecified] Onset: 2 Resolved: 4 01-10-2023 Episodic Bacterial infection; unspecified site (20 sources) History of methicillin resistant Staphylococcus aureus infection; Translations: [Personal history of Methicillin resistant Staphylococcus aureus infection] Onset: 9 Resolved: 4 01-10-2023 Episodic Blindness and vision defects (14 sources) Visual hallucinations; Translations: [Visual hallucinations] Onset: 3 01-10-2023 Episodic Complication of device; implant or graft (12 sources) Pain; Translations: [Pain due to cardiac prosthetic devices, implants and grafts, initial encounter] Onset: 3 Resolved: 4 01-10-2023 Episodic Fluid and electrolyte disorders (12 sources) Hypokalemia; Translations: [Hypokalemia] Onset: 4 Resolved: 4 01-10-2023 Episodic Headache; including migraine (12 sources) Headache; Translations: [Headache] Onset: 3 Resolved: 4 01-10-2023 Episodic Lymphadenitis (12 sources) Lymphadenopathy; Translations: [Generalized enlarged lymph nodes] Onset: 1 Resolved: 4 01-10-2023 Episodic Malaise and fatigue (14 sources) Fatigue; Translations: [Other fatigue] Onset: 3 01-10-2023 Episodic Nausea and vomiting (14 sources) Nausea and vomiting; Translations: [Nausea with vomiting, unspecified] Onset: 3 01-10-2023 Episodic Other connective tissue disease (12 sources) Pain in limb; Translations: [Pain in unspecified limb] Onset: 3 Resolved: 4 01-10-2023 Episodic Other diseases of kidney and ureters (14 sources) Acquired renal cystic disease; Translations: [Cyst of kidney, acquired] Onset: 1 01-10-2023 Episodic Other gastrointestinal disorders (18 sources) Diarrhea; Translations: [Diarrhea, unspecified] Onset: 2 08-31-2014 Episodic Other lower respiratory disease (12 sources) Hypoxemia; Translations: [Hypoxemia] Onset: 1 Resolved: 4 01-10-2023 Episodic Other nervous system disorders (12 sources) Difficulty walking; Translations: [Difficulty in walking, not elsewhere classified] Onset: 3 Resolved: 4 01-10-2023 Chronic Other nervous system disorders (12 sources) Walking disability; Translations: [Difficulty in walking, not elsewhere classified] Onset: 7 Resolved: 4 01-10-2023 Chronic Other nutritional; endocrine; and metabolic disorders (15 sources) Weight loss; Translations: [Abnormal weight loss] Onset: 2 Resolved: 4 08-31-2014 Episodic Other nutritional; endocrine; and metabolic disorders (12 sources) Loss of appetite; Translations: [Anorexia] Onset: 1 Resolved: 4 01-10-2023 Episodic Other nutritional; endocrine; and metabolic disorders (1 source) Weight decreased; Translations: [Abnormal weight loss] Onset: 2 Resolved: 4 03-12-2024 Episodic Other skin disorders (14 sources) Localized swelling, mass and lump, right upper limb; Translations: [Localized superficial swelling, mass, or lump] Onset: 3 Resolved: 4 01-10-2023 Episodic Other upper respiratory infections (12 sources) Acute recurrent maxillary sinusitis; Translations: [Acute maxillary sinusitis] Onset: 7 Resolved: 4 01-10-2023 Episodic Residual codes; unclassified (14 sources) Family history of endocrine disorders; Translations: [Family history of other endocrine, nutritional and metabolic diseases] Onset: 1 01-10-2023 Episodic Residual codes; unclassified (16 sources) Family history of breast cancer; Translations: [Family history of malignant neoplasm of breast] Onset: 3 01-10-2023 Episodic Residual codes; unclassified (14 sources) Family history of malignant neoplasm of gastrointestinal tract; Translations: [Family history of malignant neoplasm of digestive organs] Onset: 7 01-10-2023 Episodic Syncope (12 sources) Syncope and collapse; Translations: [Syncope and collapse] Onset: 1 Resolved: 4 01-10-2023 Episodic Unclassified (2 sources) History of excision of intestinal structure 03-12-2024 Results Test Name Value Interpretation Reference Range Facility 36on 08-08-2024 36 Phone call from patient, patient states she is taking 50mg total. Advised patient to stop taking 50mg and take 3 of 25mg tabs in am for a total of 75mg. Per Dr. Verdugo. [facility] 36on 08-06-2024 36 Regarding echo resul t from 08/01/2024: MD Sofia Izaguirre MA Please inform the patient that her echo is overall normal and the findings do not explain her dyspnea on exertion therefore please refer her to pulmonary function test. Spoke with patient and she said her PCP started her on amlodipine 10mg yesterday because her BP has been elevated. Patient agrees to PFT's. Order faxed to [facility]. [facility] 36on 07-30-2024 36 Patient called with BP readings: 134/71 (AM) 148/85 (PM) 118/76 (AM) 140/79 (PM) 123/79 (AM) 136/82 (PM) 123/72 (AM) 126/78 (PM) 125/79 (AM) 144/87 (PM) 164/97 She said HR ranges between 92-109. Normal [facility] Follow-Upon 07-21-2024 Follow-Up [id number] Violeta Lozoya 1970 F Date Provider Department Center 07/21/2024 [id number] VERDUGO CARD [facility] Family History Problem Relation Age of Onset Heart disease Mother Thyroid nodules Mother Atrial fibrillation Mother Diabetes Father Family Status - Relation Status Age at Mother Father Level of Service:04537 PA OFFICE/OUTPATIENT NEW MODERATE MDM 45 MINUTES Reason for Visit and Comments: Hypertension [228823] - Says BP has been elevated lately. Had routine labs with lipid panel in Feb 2024. SSS [Other] - PPM was interrogated in Apr 2024 at [facility]. Shortness of Breath [720700] - ONLY with exertion, which in worsening. Muscle Pain [356525] - C/o LE muscle cramps at night. Normal [facility] XR ABDOMEN 2 VIEWon 03-12-20 24 XR [...] report is generated using voice recognition reporting ([employer] App [employer]). On occasion, StockRad[employer] erroneously drops words from the report or [...] RESULTS NO GROWTH AT <1000 CFU/mL Normal [facility] Comment on above: Performed By: #### 6 30-4 #### [facility] ([id number]) [address], [address] [place] [address] XR ABDOMEN AP 1 VWon 024 XR [...] Gallardo MD on 09/19/2023 5:28 PM Normal [facility] CBC AUTO DIFFon 07-05-2022 BASO # 0.0 103/ul Normal 0.0-0.1 [facility] Comment on above: Performed By: #### I NFLUAB #### [facility] [address] [place] [address] Dr. Leisa Oakes Basophils/100 WBC (Bld) 0.3 % Normal 0.2-2.0 [facility] Comment on above: Performed By: #### I NFLUAB #### [facility] [address] [place] [address] Dr. Leisa Oakes EO # 0.0 103/ul Normal 0.0-0.7 [facility] Comment on above: Performed By: #### I NFLUAB #### [facility] [address] [place] [address] Dr. Leisa Oakes Eosinophils/100 WBC (Bld) 0.3 % Critically low 0.9-7.0 [facility] Comment on above: Performed By: #### I NFLUAB #### [facility] [address] [place] [address] Dr. Leisa Oakes Erythrocyte distribution width (RBC) [Ratio] 11.8 % Normal 11.0-15.0 [facility] Comment on above: Performed By: #### I NFLUAB #### [facility] [address] [place] [address] Dr. Leisa Oakes Hematocrit (Bld) [Volume fraction] 39.1 % Normal 36.0-48.0 [facility] Comment on above: Performed By: #### I NFLUAB #### [facility] [address] [place] [address] Dr. Leisa Oakes Hemoglobin (Bld) [Mass/Vol] 12.9 g/dL Normal 12.0-16.0 [facility] Comment on above: Performed By: #### I NFLUAB #### [facility] [address] [place] [address] Dr. Leisa Oakes IG # 0.01 10e3/ul Normal 0.00-0.03 [facility] Comment on above: Performed By: #### I NFLUAB #### [facility] [address] [place] [address] Dr. Leisa Oakes IG % 0.3 % Normal 0.0-0.5 [facility] Comment on above: Performed By: #### I NFLUAB #### [facility] [address] [place] [address] Dr. Leisa Oakes LYMPH # 0.3 103/ul Critically low 1.2-3.8 [facility] Comment on above: Performed By: #### I NFLUAB #### [facility] [address] [place] [address] Dr. Leisa Oakes Lymphocytes/100 WBC (Bld) 10.5 % Critically low 20.5-60.0 [facility] Comment on above: Performed By: #### I NFLUAB #### [facility] [address] [place] [address] Dr. Leisa Oakes MANUAL DIFF REQ NO Normal [facility] Comment on above: Performed By: #### I NFLUAB #### [facility] [address] [place] [address] Dr. Leisa Oakes MCH (RBC) [Entitic mass] 31.3 pg Normal 26.7-34.0 [facility] Comment on above: Performed By: #### I NFLUAB #### [facility] [address] [place] [address] Dr. Leisa Oakes MCHC (RBC) [Mass/Vol] 33.0 g/dL Normal 29.9-35.2 [facility] Comment on above: Performed By: #### I NFLUAB #### [facility] [address] [place] [address] Dr. Leisa Oakes MCV (RBC) [Entitic vol] 94.9 fL Normal 81.0-99.0 [facility] Comment on above: Performed By: #### I NFLUAB #### [facility] [address] [place] [address] Dr. Leisa Oakes MONO # 0.4 103/ul Normal 0.3-0.8 [facility] Comment on above: Performed By: #### I NFLUAB #### [facility] [address] [place] [address] Dr. Leisa Oakes Monocytes/100 WBC (Bld) 12.7 % Critically high 1.7-12.0 [facility] Comment on above: Performed By: #### I NFLUAB #### [facility] [address] [place] [address] Dr. Leisa Oakes NEUT # 2.3 103/ul Normal 1.4-6.5 [facility] Comment on above: Performed By: #### I NFLUAB #### [facility] [address] [place] [address] Dr. Leisa Oakes Neutrophils/100 WBC (Bld) 75.9 % Critically high 43.0-75.0 [facility] Comment on above: Performed By: #### I NFLUAB #### [facility] [address] [place] [address] Dr. Leisa Oakes Platelet mean volume (Bld) [Entitic vol] 9.5 fL Normal 9.5-13.5 [facility] Comment on above: Performed By: #### I NFLUAB #### [facility] [address] [address] [address] Leisa Oakes PLT 196 103/ul Normal 150-450 [facility] Comment on above: Performed By: #### I NFLUAB #### [facility] [address] [place] [address] Dr. Leisa Oakes RBC 4.12 106/ul Critically low 4.20-5.40 [facility] Comment on above: Performed By: #### I NFLUAB #### [facility] [address] [address] [address] Leisa Oakes WBC 3.1 103/ul Critically low 4.0-11.0 [facility] Comment on above: Performed By: #### I NFLUAB #### [facility] [address] [place] [address] Dr. Leisa Oakes CULTURE BLOODon 07-05-2022 Microscopic examination of blood, culture Culture Observations: NO GROWTH AT 5 DAYS. Isolate 1 BC_BA_NA Normal [facility] Comment on above: Performed By: #### I NFLUAB #### [facility] [address] [place] [address] Dr. Leisa Oakes Microscopic examination of blood, culture Culture Observations: NO GROWTH AT 5 DAYS. Normal [facility] Comment on above: Performed By: #### B LDCX1 #### [facility] [address] [place] [address] Dr. Leisa Oakes CULTURE URINEon 07-05-2022 CULTURE URINE Culture Observations : LIGHT GROWTH OF MIXED GENITAL DAVIAN. NO POTENTIAL PATHOGENS SEEN. Normal [facility] Comment on above: Performed By: #### I NFLUAB #### [facility] [address] [place] [address] Dr. Leisa Oakes [facility] SARS-CoV-2 (COVID-19) RNA JOE+probe Ql (Unsp spec) Detected Abnormal NOT DETECTED [facility] Comment on above: Result Comment: This test is not yet approved or cleared by the [place] FDA. When there are no FDA-approved or cleared tests available, and other criteria are met, FDA can make tests available under an emergency access mechanism called an Emergency Use Authorization (EUA). The EUA for this test is supported by the [place] of Health and Human Service's declaration that [...] longer be used). Performed By: #### C VDTB #### [facility] [address] [place] [address] Dr. Leisa Oakes ER URINE PROFILEon 3 Bilirubin Ql (U) Negative Normal NEGATIVE [facility] Comment on above: Performed By: #### U MICRO, ERUR #### [facility] [address] [place] [address] Dr. Leisa Oakes Clarity (U) CLEAR Normal CLEAR [facility] Comment on above: Performed By: #### U MICRO, ERUR #### [facility] [address] [place] [address] Dr. Leisa Oakes Color (U) LT. YELLOW Normal YELLOW [facility] Comment on above: Performed By: #### U MICRO, ERUR #### [facility] [address] [place] [address] Dr. Leisa Oakes ERUAHD A micrscopic examination will be performed if indicated. Normal [facility] Comment on above: Performed By: #### U MICRO, ERUR #### [facility] [address] [place] [address] Dr. Leisa Oakes Glucose Ql (U) Negative Normal NEGATIVE [facility] Comment on above: Performed By: #### U MICRO, ERUR #### [facility] [address] [place] [address] Dr. Leisa Oakes Hemoglobin Ql (U) Negative Normal NEGATIVE [facility] Comment on above: Performed By: #### U MICRO, ERUR #### [facility] [address] [place] [address] Dr. Leisa Oakes Ketones Ql (U) Negative Normal NEGATIVE [facility] Comment on above: Performed By: #### U MICRO, ERUR #### [facility] [address] [address] [address] Leisa Oakes LEUKOCYTES TRACE Abnormal NEGATIVE [facility] Comment on above: Performed By: #### U MICRO, ERUR #### [facility] [address] [place] [address] Dr. Leisa Oakes Nitrite Ql (U) Negative Normal NEGATIVE [facility] Comment on above: Performed By: #### U MICRO, ERUR #### [facility] [address] [address] [address] Leisa Oakes pH (U) 5.5 [pH] Normal 5-9 [facility] Comment on above: Performed By: #### U MICRO, ERUR #### [facility] [address] [place] [address] Dr. Leisa Oakes SPEC GRAVITY 1.010 Normal 1.005-<=1.025 [facility] Comment on above: Performed By: #### U MICRO, ERUR #### [facility] [address] [place] [address] Dr. Leisa Oakes UA PROTEIN Negative Normal NEGATIVE/ TRACE [facility] Comment on above: Performed By: #### U MICRO, ERUR #### [facility] [address] [place] [address] Dr. Leisa Oakes UR MICRO IND INDICATED Normal [facility] Comment on above: Performed By: #### U MICRO, ERUR #### [facility] [address] [place] [address] Dr. Leisa Oakes Urobilinogen Qn (U) 0.2 {Amy'U}/dL Normal 0.2 - 1. 0 [facility] Comment on above: Performed By: #### U MICRO, ERUR #### [facility] [address] [place] [address] Dr. Leisa Okaes INFLUENZA A AND B AGon 07-05 INFLUANEGH SEE BELOW Normal [facility] Comment on above: Result Comment: Nega tive for Flu A protein angiten. Infection due to Flu A cannot be ruled out. Flu A angiten in the sample may be below the detection limit of the test. Performed By: #### I NFLUAB #### [facility] [address] [place] [address] Dr. Leisa Oakes [facility] SEE BELOW Normal [facility] Comment on above: Result Comment: Nega tive for Flu B protein antigen. Infection due to Flu B cannot be ruled out. Flu B antigen in the sample may be below the detection limit of the test. Performed By: #### I NFLUAB #### [facility] [address] [place] [address] Dr. Leisa Oakes INFLUENZA A AG Negative Normal NEGATIVE SEE COMMENT [facility] Comment on above: Performed By: #### I NFLUAB #### [facility] [address] [place] [address] Dr. Leisa Oakes INFLUENZA B AG Negative Normal NEGATIVE SEE COMMENT [facility] Comment on above: Performed By: #### I NFLUAB #### [facility] [address] [place] [address] Dr. Leisa Oakes LACTATE/LACTIC ACIDon 2022 Lactate [Moles/Vol] 0.8 mmol/L Normal 0.4-1.9 [facility] Comment on above: Performed By: #### L ACT #### [facility] [address] [place] [address] Dr. Leisa Oakes PH VENOUS BLOODon 07-05-2022 PCO2 VENOUS 48.7 mmHg Normal 40.0-52.0 [facility] Comment on above: Performed By: #### P HVEN #### [facility] [address] [place] [address] Dr. Leisa Oakes pH VENOUS 7.358 Normal 7.330-7.430 [facility] Comment on above: Performed By: #### P HVEN #### [facility] [address] [place] [address] Dr. Leisa Oakes PROF 14(COMP METB)on 023 Albumin [Mass/Vol] 4.4 g/dL Normal 3.4-5.0 [facility] Comment on above: Performed By: #### H STROPN, CMP #### [facility] [address] [address] [address] Leisa Oakes Albumin/Globulin [Mass ratio] 1.5 {ratio} Normal [facility] Comment on above: Performed By: #### H STROPN, CMP #### [facility] [address] [address] [address] Leisa Oakes ALP [Catalytic activity/Vol] 55 U/L Normal 46-116 [facility] Comment on above: Performed By: #### H STROPN, CMP #### [facility] [address] [address] [address] Leisa Oakes ALT [Catalytic activity/Vol] 18 U/L Normal 14-59 [facility] Comment on above: Performed By: #### H STROPN, CMP #### [facility] [address] [address] [address] Leisa Oakes Anion gap [Moles/Vol] 13.5 mmol/L Normal [facility] Comment on above: Performed By: #### H STROPN, CMP #### [facility] [address] [address] [address] Leisa Oakes AST [Catalytic activity/Vol] 16 U/L Normal 15-37 [facility] Comment on above: Performed By: #### H STROPN, CMP #### [facility] [address] [address] [address] Leisa Oakes Bilirubin [Mass/Vol] 0.3 mg/dL Normal 0.2-1.0 [facility] Comment on above: Performed By: #### H STROPN, CMP #### [facility] [address] [address] [address] Leisa Oakes Calcium [Mass/Vol] 9.5 mg/dL Normal 8.5-10.1 [facility] Comment on above: Performed By: #### H STROPN, CMP #### [facility] [address] [address] [address] Leisa Oakes Chloride [Moles/Vol] 103 mmol/L Normal 98-107 [facility] Comment on above: Performed By: #### H STROPN, CMP #### [facility] [address] [address] [address] Leisa Oakes CO2 [Moles/Vol] 28.9 mmol/L Normal 21.0-32.0 [facility] Comment on above: Performed By: #### H STROPN, CMP #### [facility] [address] [address] [address] Leisa Oakes Creatinine [Mass/Vol] 0.84 mg/dL Normal 0.55-1.02 [facility] Comment on above: Performed By: #### H STROPN, CMP #### [facility] [address] [address] [address] Leisa Oakes EGFR-AF CAMEROONIAN >60 Normal >=60 [facility] Comment on above: Performed By: #### H STROPN, CMP #### [facility] [address] [address] [address] Leisa Oakes EGFR-NON AF CAMEROONIAN >60 Normal >=60 [facility] Comment on above: Performed By: #### H STROPN, CMP #### [facility] [address] [address] [address] Leisa Oakes Globulin (S) [Mass/Vol] 3.0 g/dL Normal [facility] Comment on above: Performed By: #### H STROPN, CMP #### [facility] [address] [address] [address] Leisa Oakes Glucose [Mass/Vol] 86 mg/dL Normal 74-106 [facility] Comment on above: Performed By: #### H STROPN, CMP #### [facility] [address] [address] [address] Leisa Oakes Potassium [Moles/Vol] 3.4 mmol/L Critically low 3.5-5.1 [facility] Comment on above: Performed By: #### H STROPN, CMP #### [facility] [address] [address] [address] Leisa Oakes Protein [Mass/Vol] 7.4 g/dL Normal 6.4-8.2 [facility] Comment on above: Performed By: #### H STROPN, CMP #### [facility] [address] [address] [address] Leisa Oakes Sodium [Moles/Vol] 142 mmol/L Normal 136-145 [facility] Comment on above: Performed By: #### H STROPN, CMP #### [facility] [address] [address] [address] Leisa Oakes Urea nitrogen [Mass/Vol] 10.0 mg/dL Normal 7.0-18.0 [facility] Comment on above: Performed By: #### H STROPN, CMP #### [facility] [address] [address] [address] Leisa Oakes Urea nitrogen/Creatinine [Mass ratio] 11.9 mg/mg Normal [facility] Comment on above: Performed By: #### H STROPN, CMP #### [facility] [address] [place] [address] Dr. Leisa Oakes TROPONIN, HIGH SENSITIVITYon 07-05-2022 HSTROP <4.0 Normal 4.0-51.3 [facility] Comment on above: Result Comment: CUT- OFF POINTS HAVE BEEN ESTABLISHED BASED ON THE FOURTH UNIVERSAL DEFINITIONS OF MYOCARDIAL INFARCTION. THE UPPER REFERENCE LIMIT (URL) OF TROPONIN, DEFINED THE 99TH PERCENTILE OF cTnI DISTRIBUTION IN A REFERENCE POPULATION, HAS BEEN CONFIRMED THE DECISION THRESHOLD FOR VA DIAGNOSIS. Performed By: #### H STROPN, CMP #### [facility] [address] [place] [address] Dr. Leisa Oakes URINE MICROSCOPIC ONLYon BACTERIA SMALL Abnormal NONE SEEN [facility] Comment on above: Performed By: #### U MICRO, ERUR #### [facility] [address] [address] [address] Leisa Oakes Bacteria identified Cx Nom (U) INDICATED Normal [facility] Comment on above: Performed By: #### U MICRO, ERUR #### [facility] [address] [address] [address] Leisa Oakes CAST NONE SEEN Normal NONE SEEN [facility] Comment on above: Performed By: #### U MICRO, ERUR #### [facility] [address] [address] [address] Leisa Oakes Crystals LM Nom (Urine sed) NONE SEEN Normal NONE SEEN [facility] Comment on above: Performed By: #### U MICRO, ERUR #### [facility] [address] [address] [address] Leisa Oakes Epithelial cells LM Ql (Urine sed) FEW Abnormal NONE SEEN /RARE [facility] Comment on above: Performed By: #### U MICRO, ERUR #### [facility] [address] [address] [address] Leisa Oakes MUCOUS NONE SEEN Normal NONE SEEN [facility] Comment on above: Performed By: #### U MICRO, ERUR #### [facility] [address] [place] [address] Dr. Leisa Oakes RBC NONE SEEN Abnormal 0-2 [facility] Comment on above: Performed By: #### U MICRO, ERUR #### [facility] [address] [address] [address] Leisa Oakes WBC 2-5 Abnormal NONE SEEN [facility] Comment on above: Performed By: #### U MICRO, ERUR #### [facility] [address] [place] [address] Dr. Leisa Oakes XR CHEST 1 Von [...] acute cardiopulmonary process. Electronically authenticated by: ISMAEL MOYER Date: 2022-07-05 15:29 Normal [facility] TISSUE TRANSGLUTAMINASE IGA [id number] 10-20-2021 TTG IGA <2 Normal 0-3 [facility] Comment on above: Result Comment: INTE RPRETIVE [...] positive predictive value for disease. Performed By: [employer] [address] [place] [id number] Matcher Offbearer: Araceli Maldonado MD CBC W/DIFFon 09-15-2021 ABS IMM GRANS 0.0 10*3/uL Normal 0.0-0.2 [facility] Comment on above: Performed By: #### 5 0103 #### [facility] [address] [place] [address], [facility] ABS NEUTROPHILS 2.8 10*3/uL Normal 1.6-7.6 [facility] Comment on above: Performed By: #### 5 0103 #### [facility] [address] [place] [address], [facility] Basophils (Bld) [#/Vol] 0.0 10*3/uL Normal 0.0-0.2 [facility] Comment on above: Performed By: #### 5 0103 #### [facility] [address] [place] [address], [facility] Basophils/100 WBC (Bld) 0.4 % Normal 0.0-1.0 [facility] Comment on above: Performed By: #### 5 0103 #### [facility] [address] [place] [address], [facility] Eosinophils (Bld) [#/Vol] 0.0 10*3/uL Normal 0.0-0.5 [facility] Comment on above: Performed By: #### 5 0103 #### [facility] [address] [place] [address], [facility] Eosinophils/100 WBC (Bld) 0.9 % Normal 0.0-6.0 [facility] Comment on above: Performed By: #### 5 0103 #### [facility] [address] [place] [address], [facility] Erythrocyte distribution width (RBC) [Ratio] 11.7 % Normal 11.5-15.0 [facility] Comment on above: Performed By: #### 5 0103 #### [facility] [address] [place] [address], [facility] Hematocrit (Bld) [Volume fraction] 44.7 % Normal 36.0-45.0 [facility] Comment on above: Performed By: #### 5 0103 #### [facility] [address] [facility] [address] Hemoglobin (Bld) [Mass/Vol] 14.8 g/dL Normal 12.0-15.0 [facility] Comment on above: Performed By: #### 5 0103 #### [facility] [address] [facility] [address], [facility] IMMATURE GRANS 0.2 % Normal 0.0-1.0 [facility] Comment on above: Performed By: #### 5 0103 #### [facility] [address] [place] [address], [facility] Lymphocytes (Bld) [#/Vol] 1.2 10*3/uL Normal 1.2-4.0 [facility] Comment on above: Performed By: #### 5 0103 #### [facility] [address] [place] [address], [facility] Lymphocytes/100 WBC (Bld) 27.3 % Normal 20.0-45.0 [facility] Comment on above: Performed By: #### 5 0103 #### [facility] [address] [place] [address], [place] MCH (RBC) [Entitic mass] 31.7 pg Normal 27.0-33.0 [facility] Comment on above: Performed By: #### 5 0103 #### [facility] [address] [facility] [address], [facility] MCHC (RBC) [Mass/Vol] 33.1 g/dL Normal 32.0-35.0 [facility] Comment on above: Performed By: #### 5 0103 #### [facility] [address] [place] [address], [facility] MCV (RBC) [Entitic vol] 95.7 fL Normal 82.0-98.0 [facility] Comment on above: Performed By: #### 5 0103 #### [facility] [address] [facility] [place] [address], [facility] Monocytes (Bld) [#/Vol] 0.4 10*3/uL Normal 0.1-1.0 [facility] Comment on above: Performed By: #### 5 0103 #### [facility] [address] [facility] [address], [facility] MONOS 8.1 % Normal 5.0-12.0 [facility] Comment on above: Performed By: #### 5 0103 #### [facility] [address] [facility] [address], [facility] Neutrophils/100 WBC (Bld) 63.1 % Normal 40.0-72.0 [facility] Comment on above: Performed By: #### 0103 #### [facility] [address] [place] [address], [facility] Nucleated RBC/100 WBC (Bld) [Ratio] 0 % Normal 0-0 [facility] Comment on above: Performed By: #### 5 3 #### [facility] [address] [place] [address], [facility] PLAT CNT 242 10*3/uL Normal 150-400 [facility] Comment on above: Performed By: #### 5 0103 #### [facility] [address] [place] [address], [facility] RBC (Bld) [#/Vol] 4.67 10*6/uL Normal 3.80-5.00 [facility] Comment on above: Performed By: #### 5 0103 #### [facility] [address] [place] [address], [facility] WBC (Bld) [#/Vol] 4.47 10*3/uL Normal 4.00-10.60 [facility] Comment on above: Performed By: #### 5 0103 #### [facility] [address] COMP METABOLIC PANELon 09-15 Albumin [Mass/Vol] 5.1 g/dL Normal 3.5-5.7 [facility] Comment on above: Performed By: #### 4 4396, 35493, 51088, 09247, 33070, 09402 #### [facility] [address] [place] [address], [facility] ALKALINE PHOSPH 56 IU/L Normal 34-104 [facility] Comment on above: Performed By: #### 4 4396, 73331, 97492, 69745, 89068, 38548 #### [facility] [address] ALT [Catalytic activity/Vol] 13 U/L Normal 7-52 [facility] Comment on above: Performed By: #### 4 4396, 65500, 88043, 56709, 31102, 84251 #### [facility] [address] [place] [address], [facility] AST [Catalytic activity/Vol] 18 U/L Normal 13-39 [facility] Comment on above: Performed By: #### 4 4396, 59589, 20214, 21228, 86406, 18196 #### [facility] [address] [place] [address], [place] Bilirubin [Mass/Vol] 0.7 mg/dL Normal 0.3-1.0 [facility] Comment on above: Performed By: #### 4 4396, 53411, 82321, 26870, 19431, 43344 #### [facility] [address] [place] [address], [place] Calcium [Mass/Vol] 10.4 mg/dL High 8.6-10.3 [facility] Comment on above: Performed By: #### 4 4396, 60804, 80135, 88229, 89873, 42324 #### [facility] [address] [place] [address], [place] Chloride [Moles/Vol] 104 mmol/L Normal 98-107 [facility] Comment on above: Performed By: #### 4 4396, 65020, 66568, 88590, 17644, 63334 #### [facility] [address] [place] [address], [place] CO2 [Moles/Vol] 27 mmol/L Normal 21-31 [facility] Comment on above: Performed By: #### 4 4396, 57322, 64681, 53530, 14216, 20266 #### [facility] [address] [place] [address], [place] Creatinine [Mass/Vol] 0.82 mg/dL Normal 0.60-1.20 [facility] Comment on above: Performed By: #### 4 4396, 09037, 85869, 60144, 35944, 43628 #### [facility] [address] [place] [address], [place] GFR/1.73 sq M.predicted among blacks MDRD (S/P/Bld) [Vol rate/Area] mL/min/{1.73_m2} Normal >60 [facility] Comment on above: Performed By: #### 4 4396, 76802, 05759, 19714, 31438, 17685 #### [facility] [address] [place] [address], [place] GFR/1.73 sq M.predicted among non-blacks MDRD (S/P/Bld) [Vol rate/Area] mL/min/{1.73_m2} Normal >60 [facility] Comment on above: Performed By: #### 4 4396, 37160, 40761, 43877, 44236, 04505 #### [facility] [address] [place] [address], [place] Glucose [Mass/Vol] 85 mg/dL Normal 70-100 [facility] Comment on above: Performed By: #### 4 4396, 61115, 53652, 13582, 82337, 46309 #### [facility] [address] [place] [address], [place] Potassium [Moles/Vol] 3.9 mmol/L Normal 3.5-5.1 [facility] Comment on above: Performed By: #### 4 4396, 72816, 09753, 29951, 39870, 77151 #### [facility] [address] [place] [address], [place] Protein [Mass/Vol] 7.5 g/dL Normal 6.0-8.3 [facility] Comment on above: Performed By: #### 4 4396, 17252, 39568, 04730, 52843, 27680 #### [facility] [address] [place] [address], [place] Sodium [Moles/Vol] 139 mmol/L Normal 136-145 [facility] Comment on above: Performed By: #### 4 4396, 09125, 27170, 62280, 61749, 03744 #### [facility] [address] [place] [address], [facility] Urea nitrogen [Mass/Vol] 13 mg/dL Normal 7-25 [facility] Comment on above: Performed By: #### 4 4396, 52988, 84573, 00661, 73955, 53730 #### [facility] [address] [place] [address], [facility] FERRITINon 09-15-2021 Ferritin [Mass/Vol] 86 ng/mL Normal 11-307 [facility] Comment on above: Performed By: #### 4 4396, 76092, 10818, 20891, 57348, 09389 #### [facility] [address] [place] [address], [facility] FREE T4on 09-15-2021 Free T4 [Mass/Vol] 1.17 ng/dL Normal 0.71-1.85 [facility] Comment on above: Performed By: #### 4 4396, 30437, 99588, 87962, 21701, 71266 #### [facility] [address] [place] [address], [facility] LIPID PROFILEon 09-15-2021 Cholesterol [Mass/Vol] 232 mg/dL High 120-200 [facility] Comment on above: Result Comment: CHOL ESTEROL REFERENCE RANGE: 20 YEARS AND OLDER CARDIOVASCULAR RISK Less than 200 mg/dl Low Risk 200 to 239 mg/dl Borderline Risk 240 mg/dl and greater High Risk Performed By: #### 4 4396, 21718, 38835, 49567, 70190, 95956 #### [facility] [address] [place] [address], [facility] Cholesterol in HDL [Mass/Vol] 92 mg/dL Normal 23-92 [facility] Comment on above: Result Comment: Slig ht variation in normal range could be due to gender and/or age. HDL CHOLESTEROL REFERENCE RANGE: 20 years and older Cardiovascular Risk > or =60 mg/dL Desirable 40 TO 59 mg/dL Low Risk <40 mg/dL High Risk Performed By: #### 4 4396, 27274, 44258, 50740, 99495, 01004 #### [facility] [address] [place] [address], [facility] Cholesterol in LDL [Mass/Vol] 125 mg/dL Normal 0-130 [facility] Comment on above: Result Comment: LDL IS A CALCULATION LDL IS ONLY VALID IF THE TRIG IS LESS THAN 400. Performed By: #### 4 4396, 07774, 60242, 33884, 96190, 34185 #### [facility] [address] [place] [address], [facility] Cholesterol.total/Cho lesterol in HDL [Mass ratio] 2.5 {ratio} Normal .0-4.5 [facility] Comment on above: Performed By: #### 4 4396, 15963, 72078, 98487, 29430, 11512 #### [facility] [address] [place] [address], [facility] NON-HDL CHOLESTEROL 140 mg/dL Normal [facility] Comment on above: Performed By: #### 4 4396, 85943, 18007, 46515, 14831, 96054 #### [facility] [address] [place] [address], [facility] Triglyceride [Mass/Vol] 77 mg/dL Normal 40-149 [facility] Comment on above: Result Comment: TRIG LYCERIDE REFERENCE RANGE: 20 YEARS AND OLDER CARDIOVASCULAR RISK LESS THAN 150 mg/dl LOW RISK 150 TO 199 mg/dl BORDERLINE RISK 200 mg/dl AND GREATER HIGH RISK Performed By: #### 4 4396, 83323, 07392, 31945, 59550, 76600 #### [facility] [address] [place] [address], [place] VLDL CHOL 15 mg/dL Normal 0-40 [facility] Comment on above: Performed By: #### 4 4396, 43020, 61059, 78943, 30585, 92172 #### [facility] [address] [place] [address], [facility] TSH3on 09-15-2021 TSH 3RD GENERATION 2.15 uIU/mL Normal 0.34-5.60 [facility] Comment on above: Performed By: #### 4 4396, 82844, 90012, 16264, 85205, 64083 #### [facility] [address] [place] [address], [facility] VITAMIN D 25-HYDROXYon 09-15 VITAMIN D 25-OH 16.0 ng/mL Low 30.0-80.0 [facility] Comment on above: Result Comment: >80. 0 Toxicity possible Performed By: #### 4 4396, 29904, 81805, 46981, 25749, 91557 #### [facility] [address] Creatinine W/GFR Point of [place] reon 06-09-2020 Creatinine [Mass/Vol] 0.88 mg/dL 0.51 - 1.19 mg/dL [place], [place] GFR Non- >60 >60 mL/min [place], [place] GFR/1.73 sq M predicted among non-blacks MDRD (S/P/Bld) [Vol rate/Area] mL/min/{1.73_m2} >60 mL/min [place] GFR/1.73 sq M predicted among non-blacks MDRD (S/P/Bld) [Vol rate/Area] [place], [place] Comment on above: Average GFR for 40-4 9 years old: 99 mL/min/1.73sq m Chronic Kidney Disease: <60 mL/min/1.73sq m Kidney failure: <15 mL/min/1.73sq m eGFR calculated using average adult body mass. Additional eGFR calculator available at: http://www.[employer]/multiple_crcl_2012.htm FLUORO FOR SURGICAL PROCEDUR ESon 06-09-2020 FLUORO FOR SURGICAL PROCEDURES Radiology exam is complete. No Radiologist dictation. Please follow up with ordering provider. Final result Normal [facility] Radiology exam is complete. No Radiologist dictation. Please follow up with ordering provider. [place], [place] POCT Glucoseon 06-09-2020 Glucose [Mass/Vol] 88 mg/dL 74 - 100 mg/dL [place], [place] COVID-19on 06-06-2020 SARS-CoV-2 [place], [place] SARS-CoV-2 Not Detected Not Detected [place], [place] Comment on above: The specimen is NEGATIVE for SARS-CoV-2, the novel coronavirus associated with COVID-19. A negative result does not rule out COVID-19. Aaron SARS-CoV-2 for use on the [employer] is a real-time RT-PCR test intended [...] this assay. Fact sheet for Healthcare Providers: https://www.fda.gov/media/877192/download Fact sheet for Patients: https://www.fda.gov/media/638489/download METHODOLOGY: RT-PCR SARS-CoV-2, [place], [place] Source .NASOPHARYNGEAL SWAB [place], [place] [id number] 06-06-2020 SARS-CoV-2 Normal [facility] Comment on above: Performed By: #### C OVID #### [facility] [employer] [address] [place] [address] Jar Capper: Clarke Arellano MD [facility] [address] [place] [address] [place] [address] Jar Capper: Anshul Treviño MD SARS-CoV-2 Not Detected [facility] Comment on above: Result Comment: The specimen is NEGATIVE for SARS-CoV-2, the novel coronavirus associated with COVID-19. A negative result does not rule out COVID-19. Aaron SARS-CoV-2 for use on the [employer] is a real-time RT-PCR test intended [...] this assay. Fact sheet for Healthcare Providers: https://www.fda.gov/media/307595/download Fact sheet for Patients: https://www.fda.gov/media/985918/download METHODOLOGY: RT-PCR Performed By: #### C OVID #### [address] [address] Jar Capper: Clarke Arellano MD [facility] [address] [place] [address] [place] [address] Jar Capper: Anshul Treviño MD SARS-CoV-2,Rapid [facility] Comment on above: Performed By: #### C OVID #### [facility] [employer] [facility] [place] [address] Jar Capper: Clarke Arellano MD [facility] [address] [place] [address] [place] [address] Jar Capper: Anshul Treviño MD [id number] 06-04-2020 SARS-CoV-2 Source .NASOPHARYNGEAL SWAB [facility] Comment on above: Performed By: #### C OVID #### [address] [address] Jar Capper: Clarke Arellano MD [facility] [address] [place] [address] Jar Capper: Anshul Treviño MD Aerobic Cultureon 06-28-2018 Aerobic Culture [facility] E ORGANISM: Methicillin Resis Staph Aureus [...] RESISTANT TO ALL B-LACTAM DRUGS. PERFORMED BY: [place] [address] PATHOLOGIST TICKET ATTENDANT NGOZI DURAN M.D. Normal [facility] Comment on above: Performed By: #### A [facility] #### [address] Vital Signs Date Time Vital Sign Value Performing Clinician Chan manriquez 05-26-2024 13:36-0500 Body height 175.3 cm Jimbo Ozuna MD Work Phone: [facility] 05-26-2024 13:36-0500 Body mass index (BMI) [Ratio] 23.63 kg/m2 Jimbo Ozuna MD Work Phone: [facility] 05-26-2024 13:36-0500 Body temperature 98.6 [degF] Jimbo Ozuna MD Work Phone: [facility] 05-26-2024 13:36-0500 Body weight 72.58 kg Jimbo Ozuna MD Work Phone: [facility] 05-26-2024 13:36-0500 Diastolic blood pressure 84 mm[Hg] Jimbo Ozuna MD Work Phone: [facility] 05-26-2024 13:36-0500 Heart rate 86 /min Jimbo Ozuna MD Work Phone: [facility] 05-26-2024 13:36-0500 SaO2% (BldA) [Mass fraction] 100 % Jimbo Ozuna MD Work Phone: [facility] 05-26-2024 13:36-0500 Systolic blood pressure 146 mm[Hg] Jimbo Ozuna MD Work Phone: [facility] 05-15-2024 15:33-0500 Body height 175.3 cm Amina Betts MD Work Phone: [facility] 05-15-2024 15:33-0500 Body mass index (BMI) [Ratio] 23.72 kg/m2 Amina Betts MD Work Phone: [facility] 05-15-2024 15:33-0500 Body weight 72.85 kg Amina Betts MD [facility] Phone[facility] 05-15-2024 15:33-0500 Diastolic blood pressure 92 mm[Hg] Amina Betts MD Work Phone: [facility] 05-15-2024 15:33-0500 Heart rate 77 /min Amina Betts MD Work Phone: [facility] 05-15-2024 15:33-0500 Systolic blood pressure 160 mm[Hg] Amina Betts MD Work Phone: [facility] 05-01-2024 18:48-0500 Body mass index (BMI) [Ratio] 24.04 kg/m2 Jaqueline Yost FINANCIAL REPORTING DIRECTOR Work Phone: [facility] 05-01-2024 18:48-0500 Body temperature 97.39 [degF] Jaqueline Yost FINANCIAL REPORTING DIRECTOR Work Phone: [facility] 05-01-2024 18:48-0500 Body weight 73.85 kg Jaqueline Yost FINANCIAL REPORTING DIRECTOR Work Phone: [facility] 05-01-2024 18:48-0500 Diastolic blood pressure 82 mm[Hg] Jaqueline Yost FINANCIAL REPORTING DIRECTOR Work Phone: [facility] 05-01-2024 18:48-0500 Systolic blood pressure 138 mm[Hg] Jaqueline Yost FINANCIAL REPORTING DIRECTOR Work Phone: [facility] 03-12-2024 09:37-0400 Body mass index (BMI) [Ratio] 23.86 kg/m2 Jaqueline Yost FINANCIAL REPORTING DIRECTOR Work Phone: [facility] 03-12-2024 09:37-0400 Body temperature 97 [degF] Jaqueline Yost FINANCIAL REPORTING DIRECTOR Work Phone: [facility] 03-12-2024 09:37-0400 Body weight 73.3 kg Jaqueline Yost FINANCIAL REPORTING DIRECTOR Work Phone: [facility] 03-12-2024 09:37-0400 Diastolic blood pressure 80 mm[Hg] Jaqueline Yost FINANCIAL REPORTING DIRECTOR Work Phone: [facility] 03-12-2024 09:37-0400 Systolic blood pressure 138 mm[Hg] Jaqueline Yost FINANCIAL REPORTING DIRECTOR Work Phone: [facility] 06-09-2020 13:06-0500 Body Temperature 98.2 [degF] Eugene Patton [facility], [facility] 06-09-2020 13:06-0500 BP Diastolic 85 mm[Hg] [facility] , [facility] 06-09-2020 13:06-0500 BP Systolic 138 mm[Hg] Eugene Patton [facility] , [place] 06-09-2020 13:06-0500 Pulse (Heart Rate) 72 /min Eugene Alex [facility], [facility] 06-09-2020 13:06-0500 Pulse Oximetry 100 % Eugene [facility] , [place] 06-09-2020 13:06-0500 Respiratory Rate 16 /min Eugene Patton [facility], [place] 06-09-2020 09:36-0500 BMI (Body Mass Index) 21.71 kg/m2 Eugene Patton [facility], [facility] 06-09-2020 09:36-0500 Body weight 66.68 kg Eugene Alex [facility] , [place] 06-09-2020 09:36-0500 Height 175.3 cm Eugene Patton [facility] , [place] Encounters Encounter Date Encounter Type Care Provider Facility Start: 08-27-2024 End: 08-27-2024 Telephone encounter Marietta Ruvalcaba MD Work Phone: [facility] Start: 08-05-2024 End: 08-05-2024 ambulatory JAQUELINE YOST Not Available Start: 07-21-2024 End: 07-22-2024 ambulatory [facility] Start: 06-27-2024 End: 06-27-2024 Telephone encounter Marietta Ruvalcaba MD Work Phone: [facility] Start: 06-25-2024 End: 06-30-2024 Refill Jaqueline Yost FINANCIAL REPORTING DIRECTOR Work Phone: [facility] Comment on above: Acquired hypothyroid ism (CMS/HCC) Start: 06-18-2024 End: 06-18-2024 Telephone encounter Marietta Ruvalcaba MD Work Phone: [facility] Start: 05-26-2024 End: 05-26-2024 Patient encounter procedure Jimbo Ozuna MD Work Phone: Gastroenterology Comment on above: Gastroesophageal ref lux disease without esophagitis (Primary Dx); Bloating Start: 05-26-2024 End: 05-26-2024 ambulatory JIMBO OZUNA Facility:[facility] Start: 05-19-2024 End: 05-19-2024 Telephone [...] Office outpatient visit 25 minutes Jaqueline Yost FINANCIAL REPORTING DIRECTOR Work Phone: [facility] Comment on above: Primary hypertension (CMS/HCC) (Primary Dx); Gastroesophageal reflux disease, unspecified whether esophagitis present; Nausea and vomiting, unspecified vomiting type; History of stomach ulcers Start: 05-01-2024 End: 05-01-2024 ambulatory JAQUELINE YOST Not Available Start: 05-01-2024 End: 05-01-2024 Bamboo flowsheet Jaqueline Yost FINANCIAL REPORTING DIRECTOR Work Phone: [facility] Start: 05-01-2024 End: 05-01-2024 Bamboo flowsheet Jaqueline Yost FINANCIAL REPORTING DIRECTOR Work Phone: [facility] Start: 03-17-2024 End: 03-17-2024 Orders Only Jaqueline Yost FINANCIAL REPORTING DIRECTOR Work Phone: [facility] Comment on above: Acquired hypothyroid ism (CMS/HCC) (Primary Dx) Start: 03-12-2024 End: 03-12-2024 Bamboo flowsheet Jaqueline Yost FINANCIAL REPORTING DIRECTOR Work Phone: [facility] Start: 03-12-2024 End: 03-12-2024 Bamboo flowsheet Jaqueline Yost FINANCIAL REPORTING DIRECTOR Work Phone: [facility] Start: 03-12-2024 End: 03-12-2024 ambulatory JAQUELINE YOTS Not Available Start: 03-12-2024 End: 03-12-2024 Patient encounter procedure Jaqueline Yost FINANCIAL REPORTING DIRECTOR Work Phone: [facility] Start: 03-12-2024 End: 03-12-2024 Periodic preventive med est patient 40-64yrs Jaqueline Yost FINANCIAL REPORTING DIRECTOR Work Phone: [facility] Comment on [...] Not Available Start: 09-19-2023 End: 09-20-2023 ambulatory [facility] Start: 07-05-2022 End: 07-05-[address] DOMINIC DONNELLY Facility: Start: 09-28-2021 End: 09-29-2021 ambulatory DOMINIC DONNELLY Facility:[facility] Start: 06-09-2020 End: 06-09-2020 Patient encounter procedure EUGENE ALEX [facility] Start: 06-09-2020 End: 06-09-2020 Subsequent hospital visit by physician Eugene Alex Work Phone: [facility] Comment on above: Post-operative pain (Primary Dx) Start: 06-04-2020 End: 06-09-2020 Patient encounter procedure SRINIVASANSAMIR PATEL [facility] Start: 06-04-2020 End: 06-08-2020 Subsequent hospital visit by physician [facility]19 Pat Screening Schedule [facility] PRE ADMIT Comment on above: Preoperative testing Start: 06-28-2018 End: 06-28-2018 Patient encounter procedure Jhoana Macias Facility:[facility] Procedures Date Procedure Procedure Detail Performing Clinician Start: 05-15-2024 Follow-up visit Follow-up AMINA BETTS Start: 12-05-2022 Lipid 1996 panel - S lesley or Plasma Jimbo Ozuna MD Work Phone: Start: 08-23-2022 Mammography Jaqueline díaz FINANCIAL REPORTING DIRECTOR Work Phone: Start: 06-09-2020 Fluoroscopy during operation Eugene Alex Work Phone: Start: 06-09-2020 Ecg routine ecg w/le ast 12 lds w/i&r Mark Gary Work Phone: Start: 06-09-2020 CREATININE W/GFR POI NT OF CARE Eugene Alex Work Phone: Start: 06-09-2020 Gluc bld gluc mntr d ev cleared fda spec home use Eugene Alex Work Phone: Start: 06-04-2020 COVID-19 Bryan funk Work Phone: Start: 04-01-2018 H/O: hysterectomy H/O: hysterectomy Jaqueline Yost NP Work Phone: Start: 09-03-2008 Colonoscopy Jaqueline díaz NP Work Phone: H/O: hysterectomy H/O: hysterectomy Artie Sagastume Priyank FINANCIAL REPORTING DIRECTOR Work Phone: Plan of Treatment Date Care Activity Detail Author Start: 12-06-2027 Lipid panel Lipid Screening [facility] Start: 04-19-2025 Diabetes Screening Diabetes Screening [facility] Start: 03-29-2025 Screening for malignant neoplasm of colon [facility] Start: 03-12-2025 Medicare Annual Wellness (AWV) Medicare Annual Wellness (AWV) [facility] Start: 01-19-2025 Influenza vaccination Influenza Vaccine (Season Ended) [facility] Start: 09-30-2024 End: 09-30-2024 Patient encounter procedure 09/30/2024 7:30 AM EDT Appointment Gastroenterology [address] [place] [id number] Michael Acuna MD [address] [place] [address] Gastroesophageal reflux disease without esophagitis [K21.9] Gastroenterology Comment on above: Gastroesophageal reflux disease without esophagitis [K21.9] Start: 05-15-2024 End: 05-15-2025 Device Interrogation Device Interrogation Cardiac Services Routine Presence of cardiac pacemaker Expected: 05/15/2024, Expires: 05/15/2025 [facility] Work Phone: Comment on above: Expected: 05/15/2024, Expires: Start: 05-01-2024 End: 05-01-2024 Patient encounter procedure 05/01/2024 7:00 PM EST Office Visit [facility] [address] [place] [address] Jaqueline Yost NP [address] [place] [address] Arrived [facility] Comment on above: Arrived Start: 04-24-2024 End: 03-17-2025 TSH W/REFLEX TO FT4 TSH W/REFLEX TO FT4 Lab Routine Acquired hypothyroidism (CMS/HCC) Expected: 04/24/2024 (Approximate), Expires: 03/17/2025 [facility] Work Phone: Comment on above: Expected: 04/24/2024 (Approximate), Expi res: 03/17/2025 Start: 03-12-2024 End: 03-12-2025 25-hydroxyvitamin D3 [Mass/volume] in Serum or Plasma Vitamin D 25 hydroxy Lab Routine Encounter for annual wellness exam in Medicare patient Vitamin D deficiency Expected: 03/12/2024 (Approximate), Expires: 03/12/2025 [facility] Comment on above: Expected: 03/12/2024 (Approximate), Expi res: 03/12/2025 Start: 03-12-2024 End: 03-12-2025 Amylase [Enzymatic activity/volume] in Serum or Plasma Amylase Lab Routine Generalized abdominal pain Expected: 03/12/2024 (Approximate), Expires: 03/12/2025 [facility] Comment on above: Expected: 03/12/2024 (Approximate), Expi res: 03/12/2025 Start: 03-12-2024 End: 03-12-2025 CBC W Auto Differential panel - Blood CBC and differential Lab Routine Encounter for annual wellness exam in Medicare patient Sinus node dysfunction (CMS/HCC) Expected: 03/12/2024 (Approximate), Expires: 03/12/2025 [facility] Comment on above: Expected: 03/12/2024 (Approximate), Expi res: 03/12/2025 Start: 03-12-2024 End: 03-12-2025 Comprehensive metabolic 2000 panel - Serum or Plasma Comprehensive metabolic panel Lab Routine Primary hypertension (CMS/HCC) Encounter for annual wellness exam in Medicare patient Expected: 03/12/2024 (Approximate), Expires: 03/12/2025 [facility] Work Phone: Comment on above: Expected: 03/12/2024 (Approximate), Expi res: 03/12/2025 Start: 03-12-2024 End: 03-12-2025 Lipase [Enzymatic activity/volume] in Serum or Plasma Lipase Lab Routine Generalized abdominal pain Expected: 03/12/2024 (Approximate), Expires: 03/12/2025 [facility] Comment on above: Expected: 03/12/2024 (Approximate), Expi res: 03/12/2025 Start: 03-12-2024 End: 03-12-2025 Lipid 1996 panel - Serum or Plasma Lipid panel Lab Routine Encounter for annual wellness exam in Medicare patient Dyslipidemia (CMS/HCC) Expected: 03/12/2024 (Approximate), Expires: 03/12/2025 [facility] Comment on above: Expected: 03/12/2024 (Approximate), Expi res: 03/12/2025 Start: 03-12-2024 End: 03-12-2025 TSH W/REFLEX TO FT4 TSH W/REFLEX TO FT4 Lab Routine Encounter for annual wellness exam in Medicare patient Acquired hypothyroidism (CMS/HCC) Expected: 03/12/2024 (Approximate), Expires: 03/12/2025 [facility] Comment on above: Expected: 03/12/2024 (Approximate), Expi res: 03/12/2025 Start: 03-12-2024 End: 03-12-2025 XR Abdomen Single view [facility] Comment on above: Expected: 03/12/2024, Expires: Start: 03-12-2024 End: 03-12-2024 Patient encounter procedure 03/12/2024 9:30 AM EDT Office Visit [facility] [address] [place] [address] Jaqueline Yost NP [address] [place] [address] Arrived [facility] Comment on above: Arrived Start: 01-20-2024 Covid-19 Vaccine ( season) Covid-19 Vaccine ( season) [facility] Start: 01-20-2024 Influenza vaccination [facility] Start: 12-07-2023 Adult BMI Screening [facility] Start: 12-07-2023 Tobacco Screening Tobacco Screening [facility] Start: 08-24-2023 Screening for malignant neoplasm of breast Mammogram [facility] Start: 01-30-2023 Medicare Annual Wellness (AWV) Medicare Annual Wellness (AWV) [facility] Start: 2021 Administration of varicella zoster vaccine Zoster (Shingles) Vaccine (1 of 2) [facility] Start: 2021 Pneumococcal Vaccine: 50+ (3 of 3 - PCV20 or PCV21) Pneumococcal Vaccine: 50+ (3 of 3 - PCV20 or PCV21) [facility] Start: 2021 Shingrix Vaccine (1 of 2) Shingrix Vaccine (1 of 2) [facility] Start: 05-27-2020 Annual Wellness Visit (AWV) Annual Wellness Visit (AWV) [place], [place] Start: 04-21-2020 Screening for malignant neoplasm of breast Mammogram Screening [facility] Start: 01-20-2020 Influenza vaccination Flu vaccine (#1) [place] Start: 09-03-2018 Screening for malignant neoplasm of colon Colonoscopy [facility] Start: 2016 Screening for malignant neoplasm of colon [facility] Start: 2011 Lipid panel Lipid screen [place], [place] Start: 1992 Screening for malignant neoplasm of cervix [facility] Start: 1990 DTaP,Tdap and Td Vaccines (1 - Tdap) DTaP,Tdap and Td Vaccines (1 - Tdap) [facility] Start: 1990 DTaP/Tdap/Td vaccine (1 - Tdap) DTaP/Tdap/Td vaccine (1 - Tdap) [place], [place] Start: 1990 Hepatitis B Vaccine (1 of 3 - 19+ 3-dose series) Hepatitis B Vaccine (1 of 3 - 19+ 3-dose series) [facility] Start: 1990 Urine microalbumin profile DTaP,Tdap,Td Vaccine (1 - Tdap) [facility] Start: 1989 Anxiety Screening Anxiety Screening [facility] Start: 1989 Depression Screening Depression Screening [facility] Start: 1989 Hepatitis C screening Hepatitis C Screening [facility] Start: 1989 HIV screening HIV Screening [facility] Start: 1986 HIV screening HIV screen [place], [place] Start: 1983 Depression Screening Depression Screening [facility] Start: 1977 Pneumococcal 0-64 years Vaccine (1 of 1 - PPSV23) Pneumococcal 0-64 years Vaccine (1 of 1 - PPSV23) [place], [place] Start: 1971 Hepatitis C screening Hepatitis C screen [place], [place] Start: 1971 Screening for malignant neoplasm of colon [facility] End: 05-26-2025 EGD DIAGNOSTIC EGD DIAGNOSTIC Endoscopy Routine Gastroesophageal reflux disease without esophagitis 1 Occurrences starting 05/26/2024 until 05/26/2025 [facility] Work Phone: Comment on above: 1 Occurrences starting 05/26/2024 until 05/26/2025 EKG 12 Lead EKG 12 Lead ECG STAT 06/09/2020 10:39 AM EST [place], [place] Oxygen therapy [[facility] Data Set] Initiate Oxygen Therapy Protocol Respiratory Care Routine Daily until discontinued starting 06/09/2020 [place] Comment on above: Daily until discontinued starting 2020 Phase I & II - meter ed glucose Phase I & II - metered glucose Point of Care Testing Routine As Needed until discontinued starting 06/09/2020 [place] Comment on above: As Needed until discontinued starting End: 06-09-2020 POCT Glucose POCT Glucose Point of Care Testing STAT One Time for 1 Occurrences starting 06/09/2020 until 06/09/2020 [place] Comment on above: One Time for 1 Occurrences starting 05/22 until 06/09/2020 End: 06-09-2020 Urine , POCT Urine , POCT Point of Care Testing Routine One Time for 1 Occurrences starting 06/09/2020 until 06/09/2020 [place] Comment on above: One Time for 1 Occurrences starting 05/22 until 06/09/2020 Immunizations Immunization Date Immunization Notes Care Provider Bernardo roger 05-21-2011 pneumococcal conjuga te vaccine, 13 valent Jaqueline Yost NP Work Phone: [facility] 05-21-2004 pneumococcal polysaccharide vaccine, 23 valent Jaqueline Sterlingzpatrick LV Work Phone: [facility] Payers Date Payer Category Payer Self-pay 2003 Medicare [id number] 1971 Unknown [id number] 2.16.8 [id number] 1971 Unknown [id number] 2.16.8 [id number] 1971 Unknown [id number] 2.16.8 [id number] 1971 Unknown [id number] 2.16.84 [id number] 1971 Unknown [id number] 2.16.8 [id number] 1971 Unknown [id number] 2.16.8 [id number] 1971 Unknown [id number] 2.16.8 [id number] 1971 Unknown [id number] 2.16.8 [id number] 1971 Unknown [id number] 2.16.84 [id number] 1971 Unknown [id number] 2.16.84 [id number] 1971 Unknown [id number] 2.16.84 [id number] 1971 Unknown [id number] 2.16.84 [id number] 1959 Medicaid [id number]. [id number] 1958 Medicare [id number] Unknown [id number] Social History Date Type Detail Facility Start: 06-04-2020 End: 06-09-2020 Tobacco smoking status [facility] Current every day smoker [place] Start: 05-21-1990 End: 01-19-2021 History of tobacco use Cigarette Smoker [place] Start: 06-04-2020 End: 03-12-2024 Tobacco use and exposure Never used [place], [place] Start: 06-04-2020 End: 05-26-2024 Alcohol intake Current non-drinker of alcohol (finding) [place], [place] Start: 1970 Sex Assigned At Not on file [place] Exposure to SARS-CoV -2 (event) Not sure [place] Start: 01-10-2023 End: 03-12-2024 Tobacco smoking status [facility] Ex-smoker [facility] Start: 05-21-1990 End: 01-19-2021 History of tobacco use Current smoker [facility] Start: 06-11-2023 End: 08-05-2024 Alcoholic beverage intake Current drinker of alcohol [...] to any clubs or organizations such as muslim groups, unions, fraternal or athletic groups, or [...] have money to get more. Never true [facility] Start: 04-04-2023 Alcohol Comment caffeine: 2-3 cups per day [facility] Start: 02-24-2018 Alcohol [facility] Start: 12-24-2014 Sex Female (finding) [facility] Medical Equipment Procedure Code Equipment Code Equipment Origin al Text Equipment Identifier Dates Stent Uret 6fr L 26cm Percflx Hydr+ Dbl Pgtl Thrd 2 [id number] Start: 06-09-2020 Clinical Notes 05-09-2022 to 08-27-2024 Telephone Encounter - Nazanin Estrada - 08/27/2024 3:48 PM EDTTelephone Encounter - Nazanin Estrada - 08/27/2024 3:48 PM EDTTelephone Encounter - Sofia Huff NP - 06/27/2024 11:05 AM EST Note Date & Type Note Facility 08-27-2024 Telephone encounter Note Pt called in today inquiring the results of the CT scan from the [facility]. They were scanned to her chart on 08/09/2024. Please call her as her headaches are bad. Ty [facility] 08-27-2024 Miscellaneous Notes Pt called in today inquiring the results of the CT scan from the [facility]. They were scanned to her chart on 08/09/2024. Please call her as her headaches are bad. Ty documented in this encounter [facility] 07-21-2024 Note [facility] Note Reason for cardiology consult: Dyspnea on exertion, history of a pacemaker for neurocardiogenic syncope and sick sinus syndrome Chief Complaint: Dyspnea on exertion and palpitation HPI: Violeta Lozoya is a 54 y.o. female with past medical history of hypertension, hyperlipidemia, neurocardiogenic syncope, sick sinus syndrome and high-grade heart block status post permanent pacemaker in 1999 and generator change April [address] Willis, history of hypothyroidism, COPD, GERD The patient was originally a patient of Dr. Willis but then she moved to [facility] and now is going back to [facility] cardiology The patient states that she has [...] last device check she was told by [facility] that she had an episode of [...] edema, peripheral pulse (more content not included)... [facility] 06-27-2024 Telephone encounter Note She is due for labs to recheck her thyroid, 30 day supply sent to pharmacy. She should be getting the lomotil from [facility] 06-27-2024 Miscellaneous Notes She is due for labs to recheck her thyroid, 30 day supply sent to pharmacy. She should be getting the lomotil from [facility] Pt is calling again regarding her lamotil and synthroid rx that she requested a few days ago documented in this encounter [facility] 06-27-2024 Telephone encounter Note Pt is calling again regarding her lamotil and synthroid rx that she requested a few days ago [facility] 06-18-2024 Telephone encounter Note Pt called and said she is flying out of the country , and wants to know if you will prescribe her 2 xanax pills to help her with the flight. [facility] 06-18-2024 Miscellaneous Notes Pt called and said she is flying out of the country , and wants to know if you will prescribe her 2 xanax pills to help her with the flight. documented in this encounter [facility] 05-26-2024 Instructions Jimbo Ozuna MD - 05/26/2024 2:22 PM EST Avoid caffeine, alcohol, chocolate after 3 pm Wait 4-5 hours between dinner and laying down Get firm wedge or reflux pillow Increase omeprazole to twice per day- take 1/2 hour before eating something Send me [employer] message after upper scope is done to touch base documented in this encounter [facility] 05-26-2024 History of Present illness Narrative NAME: Violeta [facility] and Clinic NO: [id number] PRESENTING COMPLAINT This patient is self referred [...] symptoms. Will also refer to Urology at [facility] to further discuss ?increasing number of [...] Jimbo Ozuna MD documented in this encounter [facility] 05-26-2024 Note HNO ID: [id number] Author: JIMBO OZUNA MD Service: ? Author Type: Physician Type: Progress Notes Filed: 05/26/2024 14:37 Note Text: NAME: Violeta Lozoya CLINIC NO: [id number] PRESENTING COMPLAINT This patient is self referred [...] symptoms. Will also refer to Urology at [facility] to further discuss ?increasing number of [...] Skin: no rashe (more content not included)... [facility] 05-19[facility]24 Telephone encounter Note Pt was told [...] she has an appt next Sunday at [facility] but she doesn't know what to do since she is still struggling and coughin . [phone] [facility] 05-19-2024 Miscellaneous Notes Pt was told [...] she has an appt next Sunday at [facility] but she doesn't know what to do since she is still struggling and coughin . [phone] documented in this encounter [facility] 05-15-2024 History of Present illness Narrative Violeta Lozoya Date of visit: 05/15/2024 Date of : [...] Med Refill History of Present Illness Ms. Lozoya is a 53F w/ PMH HTN, HLD, neurocardiogenic syncope, SSS and high degree heart block s/p BTK D-PPM 1999 (gen change Dr. Adonay Willis at [facility] 04/2022) who presents to EP clinic at [facility] for follow-up. She was last seen by me 12/06/22 at [place] and complained of pain at her device [...] She has plans to see GI at [facility] in the beginning of May. She ran [...] pain 2020 COPD (chronic obstructive pulmonary disease) ([facility]) 2010 GERD (gastroesophageal reflux disease) Hyperlipidemia Hypertension Hypothyroidism Kidney cysts [place]ion of both [place] kidneys Neurocardiogenic syncope Pacemaker Shingles 2012 Varicella 1999 No data recorded No data recorded No data recorded Past Surgical History: Procedure Laterality Date APPENDECTOMY ARM SURGERY Right arm from injury ARM WOUND REPAIR / CLOSURE CARDIAC PACEMAKER PLACEMENT x3 CHOLECYSTECTOMY COLON SURGERY Bowel resection COLONOSCOPY 2011 HYSTERECTOMY 2002 LYMPH NODE BIOPSY 2004?? SKIN BIOPSY 2019 Family History Problem Relation [...] Resource Strain: Patient Declined (03/08/2024) Received from [facility] Overall Financial Resource Strain (CARDIA) Difficulty of Paying Living Expenses: Patient declined Food Insecurity: Unknown (03/08/2024) Received from [facility] Hunger Vital Sign Worried About Running Out of Food in the Last Year: Patient declined Ran Out of Food in the Last Year: Never true Transportation Needs: No Transportation Needs (03/08/2024) Received from [facility] PRAPARE - Transportation Lack of Transportation (Medical): No Lack of Transportation (Non-Medical): No Physical Activity: Inactive (03/08/2024) Received from [facility] Exercise Vital Sign Days of Exercise per Week: 0 days Minutes of Exercise per Session: 0 min Stress: No Stress Concern Present (03/08/2024) Received from [facility] [employer] [place] [employer] - Occupational Stress Questionnaire Feeling of Stress : Not at all Social Connections: Unknown (03/08/2024) Received from [facility] Social Connection and Isolation Panel [NHANES] Frequency of Communication with Friends and Family: Three times a week Frequency of Social Gatherings with Friends and Family: Once a week Attends [employer] Services: Patient declined Active Member of Clubs or Organizations: No Attends Club or Organization Meetings: Never Marital Status: Interpersonal Safety: Unknown (07/12/2023) Received from [facility] Safety & Environment Fear of Current or Ex-Partner: Not on file Emotionally Abused: Not on file Physically Abused: Not on file Sexually Abused: Not on file Physically or Sexually Abused: Not on file Housing Instability: Unknown (03/08/2024) Received from [facility] Housing Stability Vital Sign Unable to Pay [...] for this encounter. documented in this encounter [facility] 05-15-2024 History of Present illness Narrative I agree with the findings in the scanned document. documented in this encounter [facility] 05-01-2024 History of Present illness Narrative Images from the original note were not included. Violeta Lozoya is a 53 y.o. female presents with [...] Patient is scheduled to see GI at [facility] on . SUBJECTIVE: MEDICATIONS: Current Outpatient Medications [...] ulcers-will trial carafate. Patient has appointment with [facility]. - sucralfate (Carafate) 1 g tablet; Take 1 tablet (1 g) by mouth in the morning and 1 tablet (1 g) at noon and 1 tablet (1 g) in the evening and 1 tablet (1 g) before bedtime. Take before meals. documented in this encounter [facility] 03-17-2024 History of Present illness Narrative Prescription sent and orders placed documented in this encounter [facility] 03-12-2024 History of Present illness Narrative Images from the original note were not included. Violeta Lozoya is a 53 y.o. female presents with [...] urology as advised documented in this encounter [facility] 05-09-2022 Evaluation note Diagnosis Presence of cardiac pacemaker- Bio 05/09/22 Lazaro- Primary Cardiac pacemaker in situ documented in this encounter [facility]* Diagnosis Generalized abdominal pain- Primary [...] of bowel resection documented in this encounter [facility] HealthcareEvaluation note* Diagnosis Acquired hypothyroidism (CMS/HCC)- Primary Unspecified hypothyroidism documented in this encounter [facility] HealthcareEvaluation note* Diagnosis Primary hypertension (CMS/HCC)- Primary Unspecified essential hypertension Gastroesophageal reflux disease, unspecified whether esophagitis present Nausea and vomiting, unspecified vomiting type History of stomach ulcers documented in this encounter [facility] Healthcare[facility] note* Diagnosis Presence of cardiac pacemaker- Primary Cardiac pacemaker in situ documented in this encounter [facility]* Diagnosis Gastroesophageal reflux disease without esophagitis- Primary Esophageal reflux Bloating Flatulence, eructation, and gas pain [facility] Diagnosis Acquired hypothyroidism (CMS/HCC) Unspecified hypothyroidism documented in this encounter [facility] HealthcareEvaluation note* Diagnosis Acquired hypothyroidism (CMS/HCC) Unspecified hypothyroidism [facility]ructionsNot on filedocumented in this encounterPro[facility] SystemInstructionsNot on filedocumented in this encounterProWadsworth[facility] SystemReason for referral (narrative)* Outpatient Procedure (Routine) - Authorized Specialty Diagnoses / Procedures Referred By Chelsy t Referred To Contact [facility] Diagnoses Gastroesophageal reflux disease without esophagitis Procedures EGD DIAGNOSTIC ESOPHAGOGASTRODUODENOSC OPY TRANSORAL DIAGNOSTIC Jimbo Ozuna MD [address] [place] [address] [facility] [address] [place] [address] Referral ID Status Reason Start Date Expiration Date Visits Requested Visits Authorized [id number] Authorized Auto-Generat ed Referral 05/26/2024 05/26/2025 1 1 [facility] Summary Purpose Family History No Family History Records FoundNo Family History Records FoundNo Family History Records FoundNo Family History Records FoundNo Family History Records FoundNo Family History Records FoundNo Family History Records FoundNo Family History Records FoundNo Family History Records FoundNo Family History Records Found Advance Directives Documents on File Type Date Recorded Patient Pool Hall Inspector Expl anation ACP-Advance Directive ACP-Power of Ribbon Blockmaker Documents on File Type Date Recorded Patient Pool Hall Inspector Expl anation ACP-Advance Directive ACP-Power of Ribbon Blockmaker Assessments Diagnosis Preoperative testing Preoperative examination, unspecified [...] symptoms. Please call attending physician or hospital oil plant operator with questions. Please call or present [...] section and content) DATE CREATED AUTHOR 07/10/2018 [facility] DATE CREATED AUTHOR AUTHOR'S ORGANIZ ATION 06/10/2020 [facility] DATE CREATED AUTHOR AUTHOR'S ORGANIZ ATION 06/12/2020 [facility] DATE CREATED AUTHOR AUTHOR'S ORGANIZ ATION 10/25/2021 [facility] DATE CREATED AUTHOR AUTHOR'S ORGANIZ ATION 07/11/2022 [facility] DATE CREATED AUTHOR AUTHOR'S ORGANIZ ATION 09/20/2023 [facility] DATE CREATED AUTHOR AUTHOR'S ORGANIZ ATION 05/17/2024 [facility] DATE CREATED AUTHOR AUTHOR'S ORGANIZ ATION 06/01/2024 [facility] DATE CREATED AUTHOR AUTHOR'S ORGANIZ ATION 08/08/2024 [facility] DATE CREATED AUTHOR AUTHOR'S ORGANIZ ATION 08/10/2024 [facility] Reason for Visit (unrecogniz ed section and content) Status Reason Specialty Diagnoses / Procedures Referre d By Contact Referred To Contact Diagnoses Ureteral stone URETERAL STONE Procedures PA CYSTO/URETERO W/LITHOTRIPSY &INDWELL STENT INSRT HOLMIUM- CYSTO, URETEROSCOPY, LASER LITHO, STENT PLACEMENT Eugene Alex MD [address] [place] [address] [facility] Reason Comments Medicare Annual Wellness Visit Subsequen [...] Care Teams (unrecognized sec tion and content) Pier Master Relationship Specialty Start Date End Date Shani Gama DO [address] [place] [address] PCP - ACO Reach 07/20/23 Marietta Ruvalcaba MD [address] [place] [address] PCP - General Family Medicine 03/03/24 Jaqueline Yost FINANCIAL REPORTING DIRECTOR [address] [place] [address] Nurse Practitioner Family Medicine 03/03/24 Pier Master Relationship Specialty Start Date End Date Shani Gama DO [address] [place] [address] PCP - ACO Reach 07/20/23 Marietta Ruvalcaba MD [address] [place] [address] PCP - General Family Medicine 03/03/24 Jaqueline Yost NP [address] [place] [address] Nurse Practitioner Family Medicine 03/03/24 Pier Master Relationship Specialty Start Date End Date Shani Gama DO [address] [place] [address] PCP - ACO Reach 07/20/23 Marietta Ruvalcaba MD [address] [place] [address] PCP - General Family Medicine 03/03/24 Jaqueline Yost NP [address] [place] [address] Nurse Practitioner Family Medicine 03/03/24 Pier Master Relationship Specialty Start Date End Date Shani Gama DO [address] [place] [address] PCP - ACO Reach 07/20/23 Marietta Ruvalcaba MD [address] [place] [address] PCP - General Family Medicine 03/03/24 Jaqueline Yost NP [address] [place] [address] Nurse Practitioner Family Medicine 03/03/24 Pier Master Relationship Specialty Start Date End Date Shani Gama DO [address] [place] [address] PCP - ACO Reach 07/20/23 Marietta Ruvalcaba MD [address] [place] [address] PCP - General Family Medicine 03/03/24 Jaqueline Yost NP [address] [place] [address] Nurse Practitioner Family Medicine 03/03/24 Pier Master Relationship Specialty Start Date End Date Pcp, [place] [address] PCP - General Family Medicine 09/19/23 Pier Master Relationship Specialty Start Date End Date Pcp, [place] [address] PCP - General Family Medicine 09/19/23 Pier Master Relationship Specialty Start Date End Date Shani Gama DO [address] [place] [address] PCP - ACO Reach 07/20/23 Marietta Ruvalcaba MD [address] [place] [address] PCP - General Family Medicine 03/03/24 Jaqueline Yost, FINANCIAL REPORTING DIRECTOR [address] [place] [address] Nurse Practitioner Family Medicine 03/03/24 Pier Master Relationship Specialty Start Date End Date Dominic Donnelly PCP - General 12/28/09 Pier Master Relationship Specialty Start Date End Date Shani Gama DO [address] [place] [address] PCP - ACO Reach 07/20/23 06/26/24 Marietta Ruvalcaba MD [address] [place] [address] PCP - General Family Medicine 03/03/24 Jaqueline Yost FINANCIAL REPORTING DIRECTOR [address] [place] [address] Nurse Practitioner Family Medicine 03/03/24 Pier Master Relationship Specialty Start Date End Date Marietta Ruvalcaba MD [address] [place] [address] PCP - General Family Medicine 03/03/24 Jaqueline Yost NP [address] [facility] [place] [address] Nurse Practitioner Family Medicine 03/03/24 Source Comments (unrecognize d section and content) In the event this informatio n is protected by the Federal Confidentiality of Alcohol and Drug Abuse Patient Records regulations: The Federal rules restrict any use of the information to criminally investigate or prosecute any alcohol or drug abuse patient.[facility] the event this information is protected by the Federal Confidentiality of Alcohol and Drug Abuse Patient Records regulations: The Federal rules restrict any use of the information to criminally investigate or prosecute any alcohol or drug abuse patient.[facility] FOR RECORDS PERTAINING TO PATIENTS WHO ARE [...] BE BASED ON THE PRIMARY CLINICAL RECORDS. [facility]. provides no warranty or guarantee of the accuracy or completeness of information in this document.
--- NOTE | 2024-08-30 20:07 | ECG_ITS ---
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 Measurements Intervals [place] Rate: 82 P: 78 IN: 226 QRS: 23 QRSD: 92 T: 41 QT: 362 QTc: 400 Interpretive Statements [id number] Electronic atrial pacemaker Abnormal ECG Compared to ECG 07/05/2022 14:56:52 No significant changes Electronically Signed On 08-31-2024 8:55:46 EDT by NIKA BELCHER M.D.
--- NOTE | 2024-08-30 20:09 | ED.GENADUL1 ---
Documented by User: ZAFAR Zelaya 08/30/24 21:01 HPI HPI - General Adult General Chief complaint: Headache Stated complaint: HEADACHE, HIGH BP Time Seen by Provider: 08/30/24 19:36 Mode of arrival: walk-in Limitations: no limitations History of Present Illness HPI narrative: Patient is a 54-year-old female who presents to the emergency department for 2-month history of elevated blood pressures, headaches, dizziness. 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 She states she was given an increased dose of metoprolol to help with her blood pressure. Her primary care added amlodipine in the last month and she had a negative CT of the brain. She states she came to the emergency department tonight because earlier today she felt palpitations and jaw pain with a headache and dizziness. She denies syncope or falls, no visual changes. She has moderate dizziness on standing and worsening headache. She has been using ibuprofen without improvement. She states she has not received a call from her second grade teacher office or her primary care office for the last 3 days regarding worsening symptoms so she came to the emergency department. She has no active chest pain in the ER. Related Data Home Medications ?Medication ?Instructions ?Recorded ?Confirmed amlodipine 10 mg tablet 10 mg PO DAILY 08/30/24 08/30/24 amlodipine 10 mg tablet 10 mg PO DAILY 08/30/24 08/30/24 levothyroxine 112 mcg tablet 88 mcg PO DAILY 08/30/24 08/30/24 levothyroxine 88 mcg tablet 88 mcg PO DAILY 08/30/24 08/30/24 metoprolol succinate 25 mg 75 mg PO DAILY 08/30/24 08/30/24 tablet,extended release 24 hr omeprazole 40 mg capsule,delayed 40 mg PO DAILY 08/30/24 08/30/24 release sucralfate 1 gram tablet 08/30/24 Allergies Allergy/AdvReac Type Severity Reaction Status Date / Time No Known Drug Allergies Allergy Verified 08/30/24 19:45 Opioid HPI Opioid Management Most Recent Opioid Data: No Data to Display Review of Systems ROS Constitutional Denies: fever or chills Eyes Denies: change in vision Cardiovascular Denies: chest pain Respiratory Denies: shortness of breath or cough Gastrointestinal Denies: nausea or vomiting Integumentary/Breast Denies: rash Neurological Reports: headache and dizziness; Denies: numbness in extremities or weakness in extremities Hematologic/Lymphatic Denies: easy bruising or easy bleeding PFSH PFSH Medical History (Updated 08/30/24 @ 21:51 by Iban Cheng) FH: cholecystectomy ?Z83.79 - Family history of other diseases of the digestive system (ICD-10) Pacemaker ?Z95.0 - Presence of cardiac pacemaker (ICD-10) Hypertension ?I10 - Essential (primary) hypertension (ICD-10) Sick sinus syndrome ?I49.5 - Sick sinus syndrome (ICD-10) Surgical History (Updated 08/30/24 @ 19:47 by Wendy Trent) H/O: hysterectomy ?Z90.710 - Acquired absence of both cervix and uterus (ICD-10) Social History Little interest or pleasure in doing things: not at all Feeling down, depressed, or hopeless: not at all Exam Narrative Exam Narrative: Gen.: Awake, alert, in no distress, clear speech, no photophobia Head: Normocephalic, atraumatic ENT: Moist mucous membranes Respiratory: No respiratory distress, lungs clear bilaterally Cardio: Regular rate and rhythm Extremities: Moves extremities equally Psych: Normal mood and affect Neuro: No focal neuro deficit Skin: Warm, dry, intact Constitutional Vital Signs, click to edit/add: Last Vital Signs Temp 99.4 F 08/30/24 19:40 Pulse 83 08/30/24 21:40 Resp 19 08/30/24 21:40 BP 115/79 08/30/24 21:30 Pulse Ox 99 08/30/24 20:00 O2 Del Method Room Air 08/30/24 19:40 Course Vital Signs Vital signs: Vital Signs Blood Pressure 164/91 H 08/30/24 19:39 Pulse Oximetry 100 08/30/24 19:39 Temperature 99.4 F 08/30/24 19:40 Pulse Rate 83 08/30/24 21:40 Respiratory Rate 19 08/30/24 21:40 Blood Pressure 115/79 08/30/24 21:30 Pulse Oximetry 99 08/30/24 20:00 Oxygen Delivery Method Room Air 08/30/24 19:40 Medical Decision Making MDM Narrative Medical decision making narrative: 2100: Patient treated with IV fluids, Reglan, Benadryl, Decadron, Toradol. Blood pressure has significantly improved on reevaluation and patient is stable at this time. She had a CT of the brain 3 weeks ago that was unremarkable. Blood testing, EKG and chest x-ray were ordered and case is turned over to attending physician at this time. SHARED APC VISIT, PHYSICIAN ATTESTATION: [id number] I performed a substantive part of the MDM during the patient?s E/M visit. I personally evaluated and examined the patient. I personally made or approved the documented management plan and acknowledge its risk of complications. Medical Records Medical records reviewed: Yes I reviewed the patient's medical records Lab Data Lab results reviewed: Yes I reviewed the patient's lab results Labs: Lab Results 08/30/24 08/30/24 Range/Units 20:20 20:24 WBC 4.8 (4.0-11.0) 10^3/uL RBC 4.44 (4.20-5.40) 10^6/uL Hgb 13.7 (12.0-16.0) g/dL Hct 41.7 (36.0-48.0) % MCV 93.9 (81.0-99.0) fL MCH 30.9 (26.7-34.0) pg MCHC 32.9 (29.9-35.2) g/dL RDW 11.6 (11.0-15.0) % Plt Count 228 (150-450) 10^3/uL MPV 10.4 (9.5-13.5) fL Neut % (Auto) 61.5 (43.0-75.0) % Lymph % (Auto) 26.9 (20.5-60.0) % [place] % (Auto) 9.3 (1.7-12.0) % Eos % (Auto) 1.7 (0.9-7.0) % Baso % (Auto) 0.4 (0.2-2.0) % Neut # (Auto) 3.0 (1.4-6.5) 10^3/uL Lymph # (Auto) 1.3 (1.2-3.8) 10^3/uL [place] # (Auto) 0.5 (0.3-0.8) 10^3/uL Eos # (Auto) 0.1 (0.0-0.7) 10^3/uL Baso # (Auto) 0.0 (0.0-0.1) 10^3/uL Abs Immat Gran (auto) 0.01 (0.00-0.03) 10^3/uL Imm/Tot Granulo (auto) 0.2 (0.0-0.5) % PT 10.1 (9.0-11.6) sec INR 0.95 Sodium 141 (136-145) mmol/L Potassium 4.0 (3.5-5.1) mmol/L Chloride 102 (98-107) mmol/L Carbon Dioxide 29.5 (21.0-32.0) mmol/L Anion Gap 13.5 BUN 17.0 (7.0-18.0) mg/dL Creatinine 0.99 (0.55-1.02) mg/dL Est GFR ( Amer) >60 (>=60 mL/min/1.73m^2) Est GFR (Non-Af Amer) 59 L (>=60 mL/min/1.73m^2) BUN/Creatinine Ratio 17.2 Glucose 75 (74-106) mg/dL Calcium 9.7 (8.5-10.1) mg/dL Magnesium 2.0 (1.8-2.4) mg/dL Total Bilirubin 0.4 (0.2-1.0) mg/dL AST 18 (15-37) U/L ALT 22 (14-59) U/L Alkaline Phosphatase 61 (46-116) U/L Troponin I High Sens <4.0 L (4.0-51.3) pg/mL Total Protein 7.2 (6.4-8.2) g/dL Albumin 3.9 (3.4-5.0) g/dL Globulin 3.3 g/dL Albumin/Globulin Ratio 1.2 TSH 1.281 (0.358-3.740) uIU/mL Urine Color Lt. yellow (YELLOW) Urine Clarity Clear (CLEAR) Urine pH 6.0 (5.0-9.0) Ur Specific [place] <=1.005 A (1.005-1.025) Urine Protein Negative (NEG/TRACE) mg/dL Urine Glucose (UA) Negative (NEGATIVE) mg/dL Urine Ketones Negative (NEGATIVE) mg/dL Urine Occult Blood Negative (NEGATIVE) Urine Nitrite Negative (NEGATIVE) Urine Bilirubin Negative (NEGATIVE) Urine Urobilinogen 0.2 (0.2-1.0) EU/dL Ur Leukocyte Esterase Negative (NEGATIVE) Urine RBC 0-2 (0-2) #/HPF Urine WBC 0-2 A (NONE SEEN) #/HPF Ur Squamous Epith Cells None seen (NONE/RARE) #/LPF Urine Crystals None seen (None Seen) #/HPF Urine Bacteria Trace A (NONE SEEN) #/HPF Urine Casts None seen (NONE SEEN) #/LPF Urine Mucus None seen (NONE SEEN) Ur Culture Indicated? No ECG Data Attestation: I personally reviewed and interpreted this ECG as follows: (Electronic atrial pacemaker at a rate of 82, no acute ST elevation or ectopy. EKG reviewed by attending physician) Discharge Plan Discharge Chief Complaint: Headache Clinical Impression: Headache, Heart palpitations Patient Disposition: Home, Self-Care Time of Disposition Decision: 21:51 Prescriptions / Home Meds: No Action amlodipine 10 mg tablet 10 mg PO DAILY amlodipine 10 mg tablet 10 mg PO DAILY levothyroxine 112 mcg tablet 88 mcg PO DAILY levothyroxine 88 mcg tablet 88 mcg PO DAILY metoprolol succinate 25 mg tablet extended release 24 hr 75 mg PO DAILY omeprazole 40 mg capsule,delayed release(DR/EC) 40 mg PO DAILY sucralfate 1 gram tablet Print Language: Cuban Instructions: Heart Palpitations (ED), Acute Headache (ED) Referrals: Jaqueline Yost NP [Primary Care Provider] - 1 week Documented by User: Iban Cheng 08/30/24 21:52 HPI HPI - General Adult General Chief complaint: Headache Stated complaint: HEADACHE, HIGH BP Time Seen by Provider: 08/30/24 19:36 Related Data Home Medications ?Medication ?Instructions ?Recorded ?Confirmed amlodipine 10 mg tablet 10 mg PO DAILY 08/30/24 08/30/24 amlodipine 10 mg tablet 10 mg PO DAILY 08/30/24 08/30/24 levothyroxine 112 mcg tablet 88 mcg PO DAILY 08/30/24 08/30/24 levothyroxine 88 mcg tablet 88 mcg PO DAILY 08/30/24 08/30/24 metoprolol succinate 25 mg 75 mg PO DAILY 08/30/24 08/30/24 tablet,extended release 24 hr omeprazole 40 mg capsule,delayed 40 mg PO DAILY 08/30/24 08/30/24 release sucralfate 1 gram tablet 08/30/24 Allergies Allergy/AdvReac Type Severity Reaction Status Date / Time No Known Drug Allergies Allergy Verified 08/30/24 19:45 Opioid HPI Opioid Management Most Recent Opioid Data: No Data to Display [facility] Medical History (Updated 08/30/24 @ 21:51 by Iban Cheng) FH: cholecystectomy ?Z83.79 - Family history of other diseases of the digestive system (ICD-10) Pacemaker ?Z95.0 - Presence of cardiac pacemaker (ICD-10) Hypertension ?I10 - Essential (primary) hypertension (ICD-10) Sick sinus syndrome ?I49.5 - Sick sinus syndrome (ICD-10) Surgical History (Updated 08/30/24 @ 19:47 by Wendy Trent) H/O: hysterectomy ?Z90.710 - Acquired absence of both cervix and uterus (ICD-10) Social History Little interest or pleasure in doing things: not at all Feeling down, depressed, or hopeless: not at all Exam Constitutional Vital Signs, click to edit/add: Last Vital Signs Temp 99.4 F 08/30/24 19:40 Pulse 83 08/30/24 21:40 Resp 08/30/24 21:40 BP 115/79 08/30/24 21:30 Pulse Ox 99 08/30/24 20:00 O2 Del Method Room Air 08/30/24 19:40 Course Vital Signs Vital signs: Vital Signs Blood Pressure 164/91 H 08/30/24 19:39 Pulse Oximetry 100 08/30/24 19:39 Temperature 99.4 F 08/30/24 19:40 Pulse Rate 83 08/30/24 21:40 Respiratory Rate 19 08/30/24 21:40 Blood Pressure 115/79 08/30/24 21:30 Pulse Oximetry 99 08/30/24 20:00 Oxygen Delivery Method Room Air 08/30/24 19:40 Medical Decision Making MDM Narrative Medical decision making narrative: 2100: Patient treated with IV fluids, Reglan, Benadryl, Decadron, Toradol. Blood pressure has significantly improved on reevaluation and patient is stable at this time. She had a CT of the brain 3 weeks ago that was unremarkable. Blood testing, EKG and chest x-ray were ordered and case is turned over to attending physician at this time. SHARED APC VISIT, PHYSICIAN ATTESTATION: [id number] I performed a substantive part of the MDM during the patient?s E/M visit. I personally evaluated and examined the patient. I personally made or approved the documented management plan and acknowledge its risk of complications. Attending physician attestation -the PA and I discussed this patient's case. I reviewed the patient's EKG, chest x-ray and labs. I spoke with Dr. Masters, the second grade teacher on-call from [facility], by phone and he reviewed the patient's chart and medical record using his phone. He had actually seen this patient in the past. We reviewed the patient's negative workup and normal blood pressure at this time, he recommended the patient follow-up in the office to review her medication list, recheck her blood pressure and discuss interrogation of her pacemaker. The patient I discussed her lab results and other evaluative results as well as my discussion with Dr. Masters. She was agreeable to our plan and was discharged home. - Jan, Lab Data Labs: Lab Results 08/30/24 08/30/24 Range/Units 20:20 20:24 WBC 4.8 (4.0-11.0) 10^3/uL RBC 4.44 (4.20-5.40) 10^6/uL Hgb 13.7 (12.0-16.0) g/dL Hct 41.7 (36.0-48.0) % MCV 93.9 (81.0-99.0) fL MCH 30.9 (26.7-34.0) pg MCHC 32.9 (29.9-35.2) g/dL RDW 11.6 (11.0-15.0) % Plt Count 228 (150-450) 10^3/uL MPV 10.4 (9.5-13.5) fL Neut % (Auto) 61.5 (43.0-75.0) % Lymph % (Auto) 26.9 (20.5-60.0) % [place] % (Auto) 9.3 (1.7-12.0) % Eos % (Auto) 1.7 (0.9-7.0) % Baso % (Auto) 0.4 (0.2-2.0) % Neut # (Auto) 3.0 (1.4-6.5) 10^3/uL Lymph # (Auto) 1.3 (1.2-3.8) 10^3/uL [place] # (Auto) 0.5 (0.3-0.8) 10^3/uL Eos # (Auto) 0.1 (0.0-0.7) 10^3/uL Baso # (Auto) 0.0 (0.0-0.1) 10^3/uL Abs Immat Gran (auto) 0.01 (0.00-0.03) 10^3/uL Imm/Tot Granulo (auto) 0.2 (0.0-0.5) % PT 10.1 (9.0-11.6) sec INR 0.95 Sodium 141 (136-145) mmol/L Potassium 4.0 (3.5-5.1) mmol/L Chloride 102 (98-107) mmol/L Carbon Dioxide 29.5 (21.0-32.0) mmol/L Anion Gap 13.5 BUN 17.0 (7.0-18.0) mg/dL Creatinine 0.99 (0.55-1.02) mg/dL Est GFR ( Amer) >60 (>=60 mL/min/1.73m^2) Est GFR (Non-Af Amer) 59 L (>=60 mL/min/1.73m^2) BUN/Creatinine Ratio 17.2 Glucose 75 (74-106) mg/dL Calcium 9.7 (8.5-10.1) mg/dL Magnesium 2.0 (1.8-2.4) mg/dL Total Bilirubin 0.4 (0.2-1.0) mg/dL AST 18 (15-37) U/L ALT 22 (14-59) U/L Alkaline Phosphatase 61 (46-116) U/L Troponin I High Sens <4.0 L (4.0-51.3) pg/mL Total Protein 7.2 (6.4-8.2) g/dL Albumin 3.9 (3.4-5.0) g/dL Globulin 3.3 g/dL Albumin/Globulin Ratio 1.2 TSH 1.281 (0.358-3.740) uIU/mL Urine Color Lt. yellow (YELLOW) Urine Clarity Clear (CLEAR) Urine pH 6.0 (5.0-9.0) Ur Specific [place] <=1.005 A (1.005-1.025) Urine Protein Negative (NEG/TRACE) mg/dL Urine Glucose (UA) Negative (NEGATIVE) mg/dL Urine Ketones Negative (NEGATIVE) mg/dL Urine Occult Blood Negative (NEGATIVE) Urine Nitrite Negative (NEGATIVE) Urine Bilirubin Negative (NEGATIVE) Urine Urobilinogen 0.2 (0.2-1.0) EU/dL Ur Leukocyte Esterase Negative (NEGATIVE) Urine RBC 0-2 (0-2) #/HPF Urine WBC 0-2 A (NONE SEEN) #/HPF Ur Squamous Epith Cells None seen (NONE/RARE) #/LPF Urine Crystals None seen (None Seen) #/HPF Urine Bacteria Trace A (NONE SEEN) #/HPF Urine Casts None seen (NONE SEEN) #/LPF Urine Mucus None seen (NONE SEEN) Ur Culture Indicated? No Imaging Data Chest x-ray: Attestation: I personally reviewed and interpreted this imaging study as follows: My impression: NAD Discharge Plan Discharge Chief Complaint: Headache Clinical Impression: Headache, Heart palpitations Patient Disposition: Home, Self-Care Time of Disposition Decision: 21:51 Prescriptions / Home Meds: No Action amlodipine 10 mg tablet 10 mg PO DAILY amlodipine 10 mg tablet 10 mg PO DAILY levothyroxine 112 mcg tablet 88 mcg PO DAILY levothyroxine 88 mcg tablet 88 mcg PO DAILY metoprolol succinate 25 mg tablet extended release 24 hr 75 mg PO DAILY omeprazole 40 mg capsule,delayed release(DR/EC) 40 mg PO DAILY sucralfate 1 gram tablet Print Language: Cuban Instructions: Heart Palpitations (ED), Acute Headache (ED) Referrals: Jaqueline Yost NP [Primary Care Provider] - 1 week
[2024-08-30] MEDS: METOCLOPRAMIDE HCL 10 MG/2 ML VIAL IVP (20:31)
[2024-08-30] MEDS: DEXAMETHASONE SOD PHOS 10 MG/ML VIAL IV (20:32)
[2024-08-30] MEDS: KETOROLAC TROMETHAMINE 30 MG/ML VIAL 15 MG IVP (20:32)
[2024-08-30] MEDS: DIPHENHYDRAMINE HCL 50 MG/ML VIAL 25 MG IVP (20:32)
[2024-08-30] MEDS: 0.9 % SODIUM CHLORIDE 1,000 ML 999 ML IV (20:32)
[2024-08-30 20:47] LABS: Basophils Percent Auto 0.4 % (0.2-2.0); Eosinophils Absolute Auto 0.1 10^3/uL (0.0-0.7); Eosinophils Percent Auto 1.7 % (0.9-7.0); Hematocrit 41.7 % (36.0-48.0); Hemoglobin 13.7 g/dL (12.0-16.0); Immature Granulocytes Abs Auto 0.01 10^3/uL (0.00-0.03); Immature Granulocytes Pct Auto 0.2 % (0.0-0.5); Lymphocytes Absolute Auto 1.3 10^3/uL (1.2-3.8); Lymphocytes Percent Auto 26.9 % (20.5-60.0); Mean Corpuscular HGB Conc 32.9 g/dL (29.9-35.2); Mean Corpuscular Hemoglobin 30.9 pg (26.7-34.0); Mean Corpuscular Volume 93.9 fL (81.0-99.0); Mean Platelet Volume 10.4 fL (9.5-13.5); Monocytes Absolute Auto 0.5 10^3/uL (0.3-0.8); Monocytes Percent Auto 9.3 % (1.7-12.0); Neutrophils Percent Auto 61.5 % (43.0-75.0); Platelet Count 228 10^3/uL (150-450); Red Blood Count 4.44 10^6/uL (4.20-5.40); Red Cell Distribution Width 11.6 % (11.0-15.0); White Blood Count 4.8 10^3/uL (4.0-11.0)
[2024-08-30 20:49] LABS: Bilirubin Urine NEGATIVE (NEGATIVE); Blood Urine NEGATIVE (NEGATIVE); Clarity Urine CLEAR (CLEAR); Color Urine LT. YELLOW (YELLOW); Glucose Urine UA NEGATIVE (NEGATIVE); Ketones Urine NEGATIVE (NEGATIVE); Leukocyte Esterase Urine NEGATIVE (NEGATIVE); Nitrite Urine NEGATIVE (NEGATIVE); Protein Urine NEGATIVE (NEG/TRACE); Specific Gravity Urine <=1.005 (1.005-1.025); Urobilinogen Urine 0.2 EU/dL (0.2-1.0)
[2024-08-30 21:02] LABS: Anion Gap 13.5
[2024-08-30 21:04] LABS: INR 0.95; Prothrombin Time 10.1 sec (9.0-11.6)
[2024-08-30 21:13] LABS: Alanine Aminotransferase 22 U/L (14-59); Albumin Globulin Ratio 1.2; Albumin Level 3.9 g/dL (3.4-5.0); Alkaline Phosphatase 61 U/L (46-116); Aspartate Amino Transferase 18 U/L (15-37); BUN Creatinine Ratio 17.2; Bilirubin Total 0.4 mg/dL (0.2-1.0); Calcium 9.7 mg/dL (8.5-10.1); Carbon Dioxide 29.5 mmol/L (21.0-32.0); Chloride 102 mmol/L (98-107); Estimated GFR (African America >60 (>=60 mL/min/1.73m^2); Estimated GFR (Non-African Ame 59 (>=60 mL/min/1.73m^2); Globulin 3.3 g/dL; Glucose 75 mg/dL (74-106); Sodium 141 mmol/L (136-145); Thyroid Stimulating Hormone 1.281 uIU/mL (0.358-3.740); Total Protein 7.2 g/dL (6.4-8.2); Troponin I High Sensitivity <4.0 pg/mL (4.0-51.3)
[2024-08-30 21:17] LABS: Bacteria Urine TRACE #/HPF (NONE SEEN); Cast Seen? NONE SEEN #/LPF (NONE SEEN); Crystals Seen? None Seen #/HPF (None Seen); Mucus Urine NONE SEEN (NONE SEEN); RBC Urine 0-2 #/HPF (0-2); Squamous Epithelial Cell Urine NONE SEEN #/LPF (NONE/RARE); Urine Culture Indicated NO; WBC Urine 0-2 #/HPF (NONE SEEN)
== END 2024-08-30 22:03 | disposition home or self-care (01) ==
PROVIDERS: Physician Assistant; Emergency Provider Emergency Medicine; PCP Nurse Practitioner Family
DX: R51.9 Headache, unspecified (principal); R00.2 Palpitations; Z95.0 Presence of cardiac pacemaker; Z90.710 Acquired absence of both cervix and uterus; R42 Dizziness and giddiness
CPT/HCPCS: 36415; 71045; 80053; 81001; 83735; 84443; 84484; 85025; 85610; 93005; 96361; 96374; 96375; 99285; J1100; J1200; J1885; J2765

== ENCOUNTER 2024-11-05 08:44 | Outpatient (OUT) | payer MEDICARE, SELFPAY ==
--- OUTSIDE RECORDS SUMMARY | 2023-09-19 05:40 | XMS_ITS ---
Author Organization [facility] in [place] Address [address] [place] [address] Care Team Providers Care Risk Engineer Name Role Phone Andrzej PENA, Gibson Primary Care Provider Eugene Clark Unavailable [phone] REASON FOR VISIT Possible uti Encounters Encounter Location Date Provider Diagnosis Urology [facility] [address] [place] [address] 09/19/2023 Eugene Alex Kidney stone N20.0 Assessments Encounter Date Diagnosis (ICD Code) Assessment Notes Treatment Notes Treatment Clinical Notes Section Notes 09/19/2023 Kidney stone (ICD-10 - N20.0) Plan Of Treatment Next Appt Details Provider Name:Isai Lester, 12/08/2024 02:20:00 PM, [address] [place] [address], [phone], Progress Notes * Violeta LOZOYA KDOB:1970 (53 yo F)Acc No.[id number]:09/19/2023 Patient: Johan GONZALEZ Violeta Everardo :1970 A ge:53 Y S ex:Female Address:[address] [place] [address] , [place], [address] Subjective: * Chief Complaints: * P ossible uti * Medical History: * Surgical History: * Hospitalization/Major Diagno stic Procedure: * Medications: Objective: * Vitals: * Physical Examination: Assessment: * Assessment: 1. K idney stone - N20.0 Plan: * Treatment: * Procedure Codes: * true * Date: Generated for Printi ng/Faxing/eTransmitting on: 0 11/05/2024 08:49 AM EDT
--- OUTSIDE RECORDS SUMMARY | 2023-09-27 05:30 | XMS_ITS ---
Author Organization [facility] in [place] Address [address] [place] [address] Care Team Providers Care Barbering Instructor Name Role Phone Andrzej PENA, Gibson Primary Care Provider Eugene Clark Unavailable [phone] Allergies No Known Allergies Results Component Value Reference Range Notes UA DIP NONAUTO WO MICRO (810 02) - IN OFFICE Reviewed date:09/27/2023 09:34:00 AM Interpretation: Performing Lab: Notes/Report: COLOR Yellow CLARITY Clear GLUCOSE Neg BLOOD Neg PROTEIN Neg NITRITE Neg LEUKOCYTE ESTERASE Neg REASON FOR VISIT 1yr Kidney stone f/u with KUB, Pt c/o some pain with urination and urgency the last couple weeks Medications Medication SIG (Take, Route, Frequency, Duration) Notes Start Date End Date Status Atorvastatin Calcium 20 MG 1 tablet Oral ly Once a day for 30 day(s) Active Levothyroxine Sodium 125 MCG 1 tablet in the morning on an empty stomach Orally Once a day for 30 day(s) Active Metoprolol Succinate 50 MG 1 capsule Ora lly Once a day for 30 day(s) Active Vitamin D Active Social History Tobacco Use: Social History Observation Description Date Details (start date - stop date) Former Smoker NA - 01/19/2022 Tobacco Use/Smoking Question Answer Notes Patient is a current smoker Tobacco Control (Standard) Question Answer Notes Tobacco use: Former smoker When did you stop smoking? 01/19/2022 AUDIT-C (Standard) Question Answer Notes Did you have a drink contain ing alcohol in the past year? Yes How often did you have six o r more drinks on one occasion in the past year? Never (0 point) How many drinks did you have on a typical day when you were drinking in the past year? 1 or 2 drinks (0 point) How often did you have a dri nk containing alcohol in the past year? Monthly or less (1 point) Points 1 Interpretation Negative Problems Problem Type SNOMED Code ICD Code Onset Dates Problem Status W/U Status Risk Notes Problem 27721379 Calculus of kidney (N20.0) Active confirmed Vital Signs Height 69 in 09/27/2023 Weight 156 lbs 09/27/2023 BMI 23.03 kg/m2 09/27/2023 Encounters Encounter Location Date Provider Diagnosis [facility] [address] [place] [address] 09/27/2023 Eugene Isai Dysuria R30.0 ; Calculus of kidney N20.0 and Pelvic and perineal pain R10.2 Assessments Encounter Date Diagnosis (ICD Code) Assessment Notes Treatment Notes Treatment Clinical Notes Section Notes 09/27/2023 Dysuria (ICD-10 - R30.0) 09/27/2023 Calculus of kidney (ICD-10 - N20.0) 09/27/2023 Pelvic and perineal pain (ICD-10 - R10.2) 09/27/2023 Other recommneded pelvic exercise she has done berfore for PFD f/u prn Plan Of Treatment Treatment Notes Assessment Notes Other recommneded pelvic exercise she has done berfore for PFD f/u prn Next Appt Details Follow Up: prn, Reason: Provider Name:Isai Lester, 12/08/2024 02:20:00 PM, [address] [place] [address], [phone], Progress Notes * Violeta LOZOYA KDOB:1970 (53 yo F)Acc No.[id number]:09/27/2023 Patient: Violeta MONTANA Provider: Sue Alex MD :1970 A ge:53 Y S ex:Female Date:09/27/2023 Address:[address] [place], [place] [phone] Pcp:Gibson Donnelly MD Check In:09:15 AM ESTCheck O ut:09:47 AM EST Subjective: * Chief Complaints: * 1 yr Kidney stone f/u with KUB, Pt c/o some pain with urination and urgency the last couple weeks * HPI: U rology: This is a very pleasant 53-year-old female who has a history of stones. Her KUB x-ray does not show any obvious renal stones. She is having some pelvic pain. She had a culture a few days ago which showed no growth. She has had pelvic floor dysfunction in the past which responded well to pelvic floor therapy. This is a very pleasant 53-year-old female who has a history of stones. Her KUB x-ray does not show any obvious renal stones. She is having some pelvic pain. She had a culture a few days ago which showed no growth. She has had pelvic floor dysfunction in the past which responded well to pelvic floor therapy. * ROS: G eneral/Constitutional: Fever d enies. W eight loss d enies. F atigue or Weakness d enies. G enitourinary: Incontinence d enies. F requent urination a dmits. P ainful urination a dmits. B lood in Urine d enies. * Active Problem List N20.0 Kidney stone Modified On:07/18/2022W/U Status:confirmed N28.89 Renal mass Modified On:10/26/2020W/U Status:confirmed R10.2 Pelvic pain Modified On:10/06/2021W/U Status:confirmed N20.0 Calculus of kidney Modified On:09/27/2023W/U Status:confirmed * Medical History: * Surgical History: c ysto, left ureteroscopy, left stent placement 06/09/20pacemaker * Hospitalization/Major Diagno stic Procedure: * Family History: N o Family History documented.. * Social History: T obacco Use: T obacco Use/Smoking P atient is a c urrent smoker Tobacco Control (Standard) T obacco use: F ormer smoker W hen did you stop smoking? 0 01/19/2022 D rug/Alcohol: A BRY-C (Standard) D id you have a drink containing alcohol in the past year? Y es H ow often did you have six or more drinks on one occasion in the past year? N ever (0 point) H ow many drinks did you have on a typical day when you were drinking in the past year? 1 or 2 drinks (0 point) H ow often did you have a drink containing alcohol in the past year? M onthly or less (1 point) P oints 1 I nterpretation N egative D rugs/Alcohol: C affeine I ntake: 2 -3 cups per day Do you drink alcohol?: Socially. * Medications: T akingAtorvastatin Calcium 20 MG Tablet 1 tablet Orally Once a day Levothyroxine Sodium 125 MCG Capsule 1 tablet in the morning on an empty stomach Orally Once a day Metoprolol Succinate 50 MG Capsule ER 24 Hour Sprinkle 1 capsule Orally Once a day Vitamin D Medication List reviewed and reconciled with the patientTaking Atorvastatin Calcium 20 MG Tablet 1 tablet Orally Once a day Taking Levothyroxine Sodium 125 MCG Capsule 1 tablet in the morning on an empty stomach Orally Once a day Taking Metoprolol Succinate 50 MG Capsule ER 24 Hour Sprinkle 1 capsule Orally Once a day Taking Vitamin D Medication List reviewed and reconciled with the patient * Allergies: N .K.D.A.no[Allergies Verified] Objective: * Vitals: W t:156lbs, Ht:69in, BMI:23.03Index, Ht-cm: 175.26 cm, Wt-k.76 kg. Assessment: * Assessment: 1. D ysuria - R30.0 (Primary) 2 . C alculus of kidney - N20.0 3 . P elvic and perineal pain - R10.2 Plan: * Treatment: 2. O thers Notes: recommneded pelvic exercise she has done berfore for PFD f/u prn * Labs: * L ab: UA DIP NONAUTO WO MICRO (61128) - IN OFFICE (Collection Date & Time - 09/27/2023) Value Reference Range C OLOR Yellow * C LARITY Clear * G LUCOSE Neg * B LOOD Neg * P ROTEIN Neg * N ITRITE Neg * L EUKOCYTE ESTERASE Neg * Procedure Codes: 8 1002 URINALYSIS WO MICRO * Follow Up: p rn * * Sign off status: Completed Visit Status: C HK (Check Out) true * Provider: Sue Alex MD Date: 0 09/27/2023 Generated for Luz murphy/Kelley/Cristopheritting on: 0 11/05/2024 08:49 AM EDT History and Physical Notes * HPI (History of Present Illness) Category Sub-Category Detail Notes Category Not es Urology This is a very pleasant 53-year-old female who has a history of stones. Her KUB x-ray does not show any obvious renal stones. She is having some pelvic pain. She had a culture a few days ago which showed no growth. She has had pelvic floor dysfunction in the past which responded well to pelvic floor therapy. This is a very pleasant 53-year-old female who has a history of stones. Her KUB x-ray does not show any obvious renal stones. She is having some pelvic pain. She had a culture a few days ago which showed no growth. She has had pelvic floor dysfunction in the past which responded well to pelvic floor therapy.
--- OUTSIDE RECORDS SUMMARY | 2024-10-27 13:40 | XMS_ITS | Encounter Summary ---
Author Organization [facility] Address [address] [place] [address] Care Team Providers Care Registered Private Duty Nurse Name Role Phone Marietta Ruvalcaba MD Primary Care Provider [phone] Reason for Visit * Reason Comments Follow-up erretic blood pressures Hypertension Hyperlipidemia 3 month follow up Encounter Details Date Type Department Care Team (Late st Contact Info) Description 10/27/2024 1:40 PM EDT Office Visit [facility] [address] [place] [address] Shruti Verdugo MD [id number] [place] [address] Dyspnea on exertion (Primary Dx); Neurocardiogenic syncope; Palpitations; Sick sinus syndrome (CMS/HCC); Cardiac pacemaker in situ; Essential hypertension; Sleep apnea, unspecified type Social History Tobacco Use Types Packs/Day Years Used Date Smoking Tobacco: Former Cigarettes 0.5 2.8 S tarted: 01/2022 Passive Smoke Exposure: Never Smokeless Tobacco: Never Alcohol Use Standard Drinks/Week Comments Yes 0 (1 standard drink = 0.6 oz pur e alcohol) [facility] Safety & Environment Answer Date Rec orded Fear of Current or Ex-Partner Not on file Emotionally Abused Not on file 07/12/2023 Physically Abused Not on file 07/12/2023 Sexually Abused Not on file 07/12/2023 Physically or Sexually Abused Not on file Comments No Sex and Gender Information Value Date Recorded Sex Assigned at Not on file Legal Sex Female 9:51 PM EDT Gender Identity Not on file Sexual Orientation Not on file documented as of this encounter Last Filed Vital Signs Vital Sign Reading Time Taken Comments Blood Pressure 147/92 10/27/2024 1:56 PM EDT Pulse 76 10/27/2024 1:56 PM EDT Temperature - - Respiratory Rate - - Oxygen Saturation 98% 10/27/2024 1:56 PM EDT Inhaled Oxygen Concentration - - Weight 74.4 kg (164 lb) 10/27/2024 1:56 PM EDT Height 175.3 cm (5' 9 ) 10/27/2024 1:56 PM EDT Body Mass Index 24.22 10/27/2024 1:56 PM EDT documented in this encounter Progress Notes * Shruti Verdugo MD - 10/27/2024 1:40 PM EDT Images from the original note were not included. [place] [facility] Note Reason for cardiology visit: Dyspnea on exertion, hypertension, history of a pacemaker for neurocardiogenic syncope and sick sinus syndrome HPI: 10/27/2024 The patient is here today for follow-up visit. She states that she feels better. She does not have exertional dyspnea however sometimes when she bends over and gets up she feels a little short of breath. 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 07/21/2024 Violeta Lozoya is a 54 y.o. female with past medical history of hypertension, hyperlipidemia, neurocardiogenic syncope, sick sinus syndrome and high-grade heart block status post permanent pacemaker [id number] and generator change April [address] Willis, history of hypothyroidism, COPD, GERD The patient was originally a patient of Dr. Willis but then she moved to [facility] and now is going back to [facility] cardiology The patient states that she has [...] last device check she was told by [facility] that she had an episode of tachycardia in November but should not be of a concern. She reports dizziness when she standsup fast but she has been careful with [...] 2021. She denies alcohol or illicit drugs. ROS: All systems were reviewed and they were negative except for the positive findings noted above in the history Past Medical History She has a past [...] about 2 years ago. She has a 1.4 pack-year smoking history. She has never been exposed to tobacco smoke. She has never used smokeless tobacco. She reports current alcohol use. She reports that she does not use drugs. Family History Family History Problem Relation Name Age of Onset Heart disease Mother Thyroid nodules Mother Atrial fibrillation Mother Diabetes Father Allergies Vancomycin Medications Current Outpatient Medications: amLODIPine (Norvasc) 10 mg tablet, Take 10 mg by mouth in the morning., Disp: , Rfl: cholecalciferol (Vitamin D-3) 1,250 mcg (50,000 units) [...] 100 mg by mouth in the morning., Disp:, Rfl: omeprazole (PriLOSEC) [address] capsule, , Disp: , Rfl: sucralfate (Carafate) 1 gram tablet, Take 1 g by mouth before breakfast, before lunch, before evening meal, and at bedtime., Disp: , Rfl: Last Recorded Vitals Visit Vitals BP (!) 147/92 (BP Location: Right arm, Patient Position: Sitting) Pulse 76 Ht 1.753 m (5' 9 ) Wt 74.4 kg (164 lb) SpO2 98% BMI 24.22 kg/m?? OB Status Hysterectomy Smoking Status Former BSA 1.9 m?? Physical Examination: GENERAL: alert and oriented x3, well developed, in no acute distress. HEAD: atraumatic, normocephalic. EYES: AWAIS, EOMI. NECK: trachea midline, no JVD present, no carotid bruits present. CARDIAC: S1, S2 present. RRR. No murmur, rubs, or gallops. RESPIRATORY: CTAB, no increased effort of breathing, no rales, rhonchi, or wheezing. ABDOMEN: soft, nontender, nondistended. EXTREMITIES: no lower extremity edema, peripheral pulses are 2+ bilaterally. No rash/skin discoloration present. NEURO: strength/sensation equal and symmetric in bilateral upper and lower extremities. PSYCH: appropriate mood, affect, and judgement. Labs: 03/12/2024 White blood count 13.3, hematocrit 40.9, platelets 234 GFR 87, glucose 84, BUN 18, creatinine 0.81, sodium 141, potassium 4.1, calcium 9.8 Albumin 4.4, AST 12, ALT 10 Cholesterol 203, HDL 96, triglyceride 46, LDL 103 Last Images: EKG 07/05/2022 showed atrial paced rhythm, poor R progression V1-V4, no significant T or ST changes Echo 08/01/2024 Echo 09/28/2021 Left Ventricle: The left ventricle is normal size. Global left ventricular systolic function is normal. The EF is 60 % visually. Left ventricular wall thickness is mildly increased. No regional wall motion abnormality. Normal diastolic function. Concentric cardiac remodeling. Right Ventricle: The right ventricle is normal in size. Normal right ventricular systolic function.Doppler studies suggest normal right sided pressures. Left Atrium: The left atrium is normal in size. Overall Conclusions: No significant valvular abnormalities Assessment and Plan: Dyspnea on exertion Echo showed normal left ventricle systolic and diastolic function, probably due to uncontrolled hypertension It has been better Palpitations, no recurrence Neurocardiogenic syncope, clinically stable without recurrent symptoms Sick sinus syndrome, Status post permanent pacemaker implantation 1999 and generator replacement 2021 Last device check at [facility] was April 2024 Hypertension, on Toprol-XL 75 mg daily and amlodipine 10 mg daily. 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 She is going to follow with nephrology and endocrinology Plan: Continue amlodipine 10 mg daily, I will increase metoprolol XL to 100 mg daily Patient was advised regarding following low-salt diet and to check her blood pressure twice daily for the next couple weeks and send me the log She was referred for pulmonary function test and sleep study Patient was advised to continue to avoid caffeine and alcohol and to continue with increasing fluidintake Patient was advised to exercise start to walking and aiming to 1 mile per day 5 days a week Will transfer her device checks to our office, it is due to be checked soon Follow-up in 3 months Shruti Verdugo MD,FACC documented in this encounter Plan of Treatment Upcoming Encounters Date Type Department Care Team (Late st Contact Info) Description 01/26/2025 2:00 PM EDT Office Visit [facility] [address] [place] [address] Shruti Verdugo MD [address] [facility] [id number] [place] [address] documented as of this encounter Visit Diagnoses Diagnosis Dyspnea on exertion- Primary Other dyspnea and respiratory abnormality Neurocardiogenic syncope Palpitations Sick sinus syndrome (CMS/HCC) Sinoatrial node dysfunction Cardiac pacemaker in situ Essential hypertension Unspecified essential hypertension Sleep apnea, unspecified type documented in this encounter Care Teams Registered Private Duty Nurse Relationship Specialty Start Date End Date Marietta Ruvalcaba MD [address] [place] [address] PCP - General Internal Medicine 07/21/24 documented as of this encounter
--- OUTSIDE RECORDS SUMMARY | 2024-11-03 11:20 | XMS_ITS ---
Author Organization [facility] [place] Address [address] [place] [address] Care Team Providers Care Douper Name Role Phone Gibson Donnelly MD Primary Care Provider Isai Hicks Unavailable [phone] REASON FOR VISIT kidney cysts Medications Medication SIG (Take, Route, Frequency, Duration) Notes Start Date End Date Status amLODIPine Besylate 10 MG 1 tablet Orall y Once a day Active Levothyroxine Sodium 88 MCG 1 tablet in the morning on an empty stomach Orally Once a day for 30 days Active Metoprolol Succinate 100 MG 1 capsule Or ally Once a day for 30 days Active Omeprazole 40 MG 1 capsule 1/2 to 1 h our before morning meal Orally Once a day Active Social History Tobacco Use: Social History Observation Description Date Details (start date - stop date) Former Smoker NA - 01/19/2022 Tobacco Use/Smoking Question Answer Notes Patient is a current smoker Tobacco Control (Standard) Question Answer Notes Tobacco use: Former smoker When did you stop smoking? 01/19/2022 Problems Problem Type SNOMED Code ICD Code Onset Dates Problem Status W/U Status Risk Notes Problem 40590651 Acute kidney failure, unspecified (N17.9) Active confirmed Problem 96705095 Essential (primary) hypertension (I10) Active confirmed Problem 52639441 Hypercalcemia (E83.52) Active confirmed Problem 727668095 Cyst of kidney, acquired (N28.1) Active confirmed Vital Signs Blood pressure systolic 150 mm Hg 11/04/19 25 Blood pressure diastolic 86 mm Hg 025 Height 69 in 11/03/2024 Weight 164 lbs 11/03/2024 BMI 24.22 kg/m2 11/03/2024 Encounters Encounter Location Date Provider Diagnosis [facility] [address] [place] [address] 11/03/2024 Isai Trevon Hypovitaminosis D E5 5.9 ; Acute kidney failure, unspecified N17.9 ; Essential (primary) hypertension I10 ; Hypercalcemia E83.52 ; Calculus of kidney N20.0 and Cyst of kidney, acquired N28.1 Assessments Encounter Date Diagnosis (ICD Code) Assessment Notes Treatment Notes Treatment Clinical Notes Section Notes 11/03/2024 Hypovitaminosis D (ICD-10 - E55.9) 11/03/2024 Acute kidney failure, unspecified (ICD-10 - N17.9) Advised her to stop taking vitamin D. Advised adequate hydration. 11/03/2024 Essential (primary) hypertension (ICD-10 - I10) Advised low salt diet. Monitor BP daily. Target BP is 130/80. Hold BP meds for SBP less then 100. Agree with plan for sleep study. 11/03/2024 Hypercalcemia (ICD-10 - E83.52) 11/03/2024 Calculus of kidney (ICD-10 - N20.0) 11/03/2024 Cyst of kidney, acquired (ICD-10 - N28.1) Plan Of Treatment Treatment Notes Assessment Notes Acute kidney failure, unspecified Advised her to stop taking vitamin D. Advised adequate hydration. Essential (primary) hypertension Advised low salt diet. Monitor BP daily. Target BP is 130/80. Hold BP meds for SBP less then 100. Agree with plan for sleep study. Pending Test Test Name Order Date UA (URINALYSIS, COMPLETE) 11/03/2024 ALBUMIN, BLOOD 11/03/2024 MAGNESIUM 11/03/2024 PHOSPHORUS 11/03/2024 PTH INTACT (PARATHYROID HORMONE) 025 VITAMIN D, 25 LEVEL (TOTAL) 11/03/2024 US Renals and Bladder 11/03/2024 Renal Artery Duplex 11/03/2024 MICROALBUMIN w REPAIRER WELDING EQUIPMENT RATIO 11/03/2024 BMP (BASIC MET PANEL) w/eGFR CKD-EPI CBC WITH DIFF 11/03/2024 Next Appt Details Follow Up: 4 Weeks, Reason: Provider Name:Isai Lester, 12/08/2024 02:20:00 PM, [address] [place], [address], Progress Notes * Violeta LOZOYA KDOB:1970 (54 yo F)Acc No.[id number]:11/03/2024 New Patient Patient: Violeta MONTANA Provider: Yaz Lester MD :1970 A ge:54 Y S ex:Female Date:11/03/2024 Address:[address] [place], [place] [id number] Pcp:Gibson Donnelly MD Check In:03:13 PM ESTCheck O ut:04:09 PM EST Subjective: * Chief Complaints: * K idney cysts * HPI: G eneral: New patient here for JAMES, h ypertension and renal cyst.? She has history of hypertension since 04/2024. Her BP has been higher since 07/14/2024. She had ER visit in 09/2024 for hypertensive urgency with headache. Her usual BP has been in the 110-130s/70-80s. Her BP does go up in 150s/90s at times. She has gained 30 lbs of weight. She is scheduled for a sleep test. She has been on Omeprazole for last 8 months. She is being scheduled for EGD. She had kidney stone x 2 since 2021. Her mother has elevated calcium, undetermined cause. No family history of nephrolithiasis and renal cyst. * ROS: G eneral/Constitutional: Weight Change > 5 pounds in last 6 months d enies. A norexia d enies. L ightheadedness d enies. C ardiovascular: Orthopnea d enies. E dari d enies. S hortness of breath d enies. R espiratory: Difficulty breathing d enies. C ough d enies. ? G astrointestinal: Loss of appetite d enies. D ecreased appetite d enies. D iarrhea d enies. N ausea d enies. V omiting d enies. G enitourinary: Dysuria d enies . H ematuria d enies. U rgency?denies. M usculoskeletal: Arthralgia d enies. J oint Swelling d enies. ? S kin: Rash d enies. N eurologic: Confusion d enies. L oss of consciousness d enies.?Weakness D enies. T ingling/Numbness d enies. P sychiatric: Insomnia d enies. M ood swings d enies. E ndocrine: Polydipsia d enies. W eight loss d enies. ? H ematology: Blood clots d enies. B lood disorder d enies. ? A llergy/Immunology: Sinus allergy symptoms d enies. * Active Problem List N28.89 Renal mass Modified On:10/26/2020/U Status:confirmed R10.2 Pelvic pain Modified On:10/06/2021/U Status:confirmed N20.0 Calculus of kidney Modified On:09/27/2023U Status:confirmed E55.9 Hypovitaminosis D Modified On:10/31/2024/U Status:confirmed N17.9 Acute kidney failure , unspecified Modified On:11/03/2024/U Status:confirmed I10 Essential (primary) hypertension Modified On:11/03/2024/U Status:confirmed E83.52 Hypercalcemia Modified On:11/03/2024/U Status:confirmed N28.1 Cyst of kidney, acqu ired Modified On:11/03/2024U Status:confirmed * Medical History: * Surgical History: c ysto, left ureteroscopy, left stent placement 06/09/20pacemaker * Hospitalization/Major Diagno stic Procedure: N o Hospitalization History. * Family History: N o Family History documented.. * Social History: T obacco Use: T obacco Control (Standard) T obacco use: F ormer smoker, W hen did you stop smoking? 0 01/19/2022. T obacco Use/Smoking P atient is a c urrent smoker. * Medications: T akingamLODIPine Besylate 10 MG Tablet 1 tablet Orally Once a day Levothyroxine Sodium 88 MCG Capsule 1 tablet in the morning on an empty stomach Orally Once a day Metoprolol Succinate 100 MG Capsule ER 24 Hour Sprinkle 1 capsule Orally Once a day Omeprazole 40 MG Capsule Delayed Release 1 capsule 1/2 to 1 hour before morning meal Orally Once a day Taking amLODIPine Besylate 10 MG Tablet 1 tablet Orally Once a day Taking Levothyroxine Sodium 88 MCG Capsule 1 tablet in the morning on an empty stomach Orally Once a day Taking Metoprolol Succinate 100 MG Capsule ER 24 Hour Sprinkle 1 capsule Orally Once a day Taking Omeprazole 40 MG Capsule Delayed Release 1 capsule 1/2 to 1 hour before morning meal Orally Once a day DiscontinuedVitamin D 50 MCG (1999 UT) Capsule 1 capsule Orally Once a day Medication List reviewed and reconciled with the patientDiscontinued Vitamin D 50 MCG (1999 UT) Capsule 1 capsule Orally Once a day Medication List reviewed and reconciled with the patient * Allergies: n o[Allergies Verified] Objective: * Vitals: W t:164lbs, Ht: 69 in, BP:150/86mm Hg, BMI:24.22Index, Ht-cm: 175.26 cm, Wt-k.39 kg. * Examination: G eneral Examinations: GENERAL APPEARANCE: i n no acute distress, well developed, well nourished. ENT: n ormocephalic, atraumatic. ORAL CAVITY: m ucosa moist. NECK: n mercedes supple, no jugular venous distention. LUNGS: S ymmetrical/respiration rhythm and depth normal, clear to auscultation bilaterally. CARDIO: r egular rate and rhythm, no murmurs, S1, S2 normal. ABDOMEN: s oft, nontender, bowel sounds normal. MUSCULOSKELETAL: G ait and station normal, no swelling or deformity. SKIN: n o suspicious lesions, warm and dry. EXTREMITIES: n o clubbing, cyanosis, or edema. NEUROLOGIC: a lert and oriented, no gross focal deficit.? PSYCH: a lert, oriented, judgement and insight good, speech clear. Assessment: * Assessment: 1. A cute kidney failure, unspecified - N17.9 (Primary) 2 . H ypovitaminosis D - E55.9 3 . E ssential (primary) hypertension - I10 4 . H ypercalcemia - E83.52 5 . C alculus of kidney - N20.0 6 . C yst of kidney, acquired - N28.1 Plan: * Treatment: 2. H ypovitaminosis D L AB: VITAMIN D, 25 LEVEL (TOTAL) 3. E ssential (primary) hypertension I maging: Renal Artery Duplex Notes: Advised low salt diet. Monitor BP daily. Target BP is 130/80. Hold BP meds for SBP less then 100. Agree with plan for sleep study. 4. C yst of kidney, acquired I maging: US Renals and Bladder * Procedure Codes: * Preventive Medicine: Screenings/Counseling: F ALL RISK SCREENING F all Risk Assessment: N o falls in the past year. T OBACCO ACTION PLAN P atient counselled on the dangers of tobacco use and urged to quit. N onsmoker. * Follow Up: 4 Weeks * * Sign off status: Completed Visit Status: C HK (Check Out) true * Provider: Yaz Lestre MD Date: 11/03/2024 Generated for Luz murphy/Kelley/Kevinransmitting on: 11/05/2024 08:49 AM EDT History and Physical Notes * Examination Category Sub-Category Detail Notes Category Not es General Examinations GENERAL APPEARANCE: in no a cute distress, well developed, well nourished ENT: normocephalic, atrau matic NECK: neck supple, no jugu lar venous distention CARDIO: regular rate and rhy thm, no murmurs, S1, S2 normal LUNGS: Symmetrical/respirat ion rhythm and depth normal, clear to auscultation bilaterally ABDOMEN: soft, nontender, bow el sounds normal NEUROLOGIC: alert and oriented, no gross focal deficit SKIN: no suspicious lesion s, warm and dry EXTREMITIES: no clubbing, cyanosi s, or edema MUSCULOSKELETAL: Gait and station nor mal, no swelling or deformity PSYCH: alert, oriented, pj gement and insight good, speech clear ORAL CAVITY: mucosa moist
--- OUTSIDE RECORDS SUMMARY | 2024-11-05 08:49 | XMS_ITS | Clinical Summary ---
Author Organization [facility] [employer] [facility] Address [address] [place] [address] Care Team Providers Care Hand Ornament Maker Name Role Phone Gibson Donnelly MD Primary Care Provider Unav ailable Allergies No known active allergies Medications levothyroxine (SYNTHROID) 125 MCG tablet Take 125 mcg by mouth daily Dr Donnelly 06/16/2014 Active metoprolol (LOPRESSOR) 100 MG tablet Take 100 mg by mouth daily Dr. Willis Active Cimetidine (TAGAMET PO) Take by mouth Prn otc rarely takes Active budesonide-formo terol (SYMBICORT) 160-4.5 MCG/ACT AERO Inhale 2 puffs into the lungs [address] Donnelly Active tamsulosin (FLOMAX) 0.[address] Alex 05/27/2020 Active Active Problems Problem Noted Date Diagnosed Date Abdominal pain 02/26/2012 Diarrhea 02/26/2012 Weight loss 02/26/2012 Social History Tobacco Use Types Packs/Day Years Used Date Smoking Tobacco: Every Day Cigarettes Smokeless Tobacco: Never Alcohol Use Standard Drinks/Week Comments No 0 (1 standard drink = 0.6 oz pur e alcohol) Comments No Sex and Gender Information Value Date Recorded Sex Assigned at Not on file Legal Sex Female 2:17 PM EST Gender Identity Not on file Sexual Orientation Not on file Last Filed Vital Signs Vital Sign Reading Time Taken Comments Blood Pressure 138/85 06/09/2020 1:06 PM EST Pulse 72 06/09/2020 1:06 PM EST Temperature 36.8 C (98.2 F) 06/09/2020 1:06 PM EST Respiratory Rate 16 06/09/2020 1:06 PM EST Oxygen Saturation 100% 06/09/2020 1:06 PM EST Inhaled Oxygen Concentration - - Weight 66.7 kg (147 lb) 06/09/2020 9:36 AM EST Height 175.3 cm (5' 9 ) 06/09/2020 9:36 AM EST Body Mass Index 21.71 06/09/2020 9:36 AM EST Plan of Treatment Not on file Medical Devices Implanted Type Area Feed Manager Device Identifier Shelf Expiration Date Model / Serial / Lot Stent Uret 6fr [id number] Percflx Hydr+ Dbl Pgtl Thrd 2 Implanted:Qty: 1 on 06/09/2020 by Eugene Alex MD at [facility] Left: U[employer] 03/18/2023 [id number] / / [id number] Insurance MEDICARE MEDICARE MEDICAID [place] Care Teams Hand Ornament Maker Relationship Specialty Start Date End Date Gibson Donnelly MD PCP - General 08/31/14
--- OUTSIDE RECORDS SUMMARY | 2024-11-05 08:49 | XMS_ITS | Clinical Summary ---
Author Organization [facility] Address [address] [place] [address] Care Team Providers Care Denture Contour Wire Specialist Name Role Phone Marietta Ruvalcaba MD Primary Care Provider [phone] Allergies Active Allergy Reactions Criticality Noted Date Comments Vancomycin Rash Low 01/30/2022 Medications cholecalciferol (Vitamin D-3) 1,250 mcg (50,000 units) capsule cholecalciferol (vitamin D3) 1,250 mcg (50,000 unit) capsule TAKE ONE CAPSULE BY MOUTH ONCE WEEKLY Active levothyroxine (Synthroid, Levoxyl) 125 mcg tablet Take 88 mcg by mouth before breakfast. 015 Active diphenoxylate-a tropine (Lomotil) 2.5-0.025 mg tablet Active omeprazole (PriLOSEC) [address] capsule Active sucralfate (Carafate) 1 gram tablet Take 1 g by mouth before breakfast, before lunch, before evening meal, and at bedtime. Active amLODIPine (Norvasc) 10 mg tablet Take 10 mg by mouth in the morning. 025 Active metoprolol succinate XL (Toprol-XL) 100 mg 24 hr tabletIndicatio ns:Essential hypertension Take 1 tablet (100 mg) by mouth in the morning. Do not crush or chew. 30 tablet 11 025 2025 Active atorvastatin (Lipitor) 20 mg tablet 1 (one) time each day at the same time. 021 2021 Discontinued metoprolol succinate XL (Toprol-XL) 50 mg 24 hr tablet Take 50 mg by mouth in the morning. 021 2024 Discontinued cholestyramine (Questran) 4 gram packet 022 2024 Discontinued metoprolol succinate XL (Toprol-XL) 25 mg 24 hr tablet Take 25 mg by mouth in the morning. Do not crush or chew. 2024 Discontinued Active Problems Problem Noted Date Diagnosed Date Bulimia 07/21/2024 Calculus of kidney 07/21/2024 Dyspnea on exertion 07/21/2024 Palpitations 07/21/2024 Fatigue 01/10/2023 Hallucination, visual 01/10/2023 Left renal mass 01/10/2023 Nausea and vomiting 01/10/2023 Axillary lump, right 07/27/2022 Family history of breast cancer 07/27/2022 Pain in pacemaker pocket due to device 3 Depressive disorder 05/30/2022 Dyslipidemia 05/30/2022 Sick sinus syndrome 03/15/2022 Overview (03/15/2022): Added automatically from request for surgery [id number] Exhaustion of cardiac pacemaker battery 03/15/20 Overview (03/15/2022): Added automatically from request for surgery [id number] Chronic obstructive pulmonary disease 01/30/2022 Normal echocardiography 10/09/2021 Hypothyroidism 09/15/2021 Vitamin D deficiency 09/15/2021 Severe acute respiratory syn drome coronavirus 2 (SARS-CoV-2) vaccination not indicated 02/25/2021 Disc displacement, thoracic 08/05/2018 History of methicillin resis tant Staphylococcus aureus infection 07/13/2018 H/O: hysterectomy 04/01/2018 Cigarette smoker 12/28/2016 Migraine without aura and wi thout status migrainosus, not intractable 12/28/2016 GERD (gastroesophageal reflux disease) 6 Hypokalemia 10/23/2013 Essential hypertension 03/27/2013 Headache 03/27/2013 Acute bronchitis 03/07/2012 Abdominal pain 02/26/2012 Diarrhea 02/26/2012 Weight loss 02/26/2012 Cardiac pacemaker in situ 09/07/2011 Hyperlipidemia 04/20/2011 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 Tobacco dependence syndrome 04/19/2011 Lymphadenopathy 04/19/2011 Family history of endocrine disorder 04/18/2011 Sleep apnea 04/18/2011 Neurocardiogenic syncope 04/18/2011 Chronic asthmatic bronchitis with acute exacerba tion 04/18/2011 Hypoxemia 04/18/2011 Loss of appetite 04/18/2011 Encounters Date Type Department Care Team Description 10/27/2024 1:40 PM EDT Office Visit [facility] [address] [place] [address] Shruti Verdugo MD Dyspnea on exertion (Primary Dx); Neurocardiogenic syncope; Palpitations; Sick sinus syndrome (CMS/HCC); Cardiac pacemaker in situ; Essential hypertension; Sleep apnea, unspecified type 08/27/2024 Telephone [facility] [address] [place] [address] Katheryn Jara MA 08/06/2024 Telephone [facility] [address] [facility] [place] [address] Sofia Levy MA from Last 3 Months Immunizations Immunization Administration Dates Next Due Pneumococcal Conjugate PCV 13 05/21/2011 Pneumococcal Polysaccharide PPV23 05/21/2004 Family History Medical History Relation Name Comments Diabetes Father Atrial fibrillation Mother Heart disease Mother Thyroid nodules Mother Relation Name Status Comments Father Mother Social History Tobacco Use Types Packs/Day Years Used Date Smoking Tobacco: Former Cigarettes 0.5 2.8 S tarted: 01/2022 Passive Smoke Exposure: Never Smokeless Tobacco: Never Tobacco Cessation:Counseling Given: Not Answered Alcohol Use Standard Drinks/Week Comments Yes 0 (1 standard drink = 0.6 oz pur e alcohol) [facility] Safety & Environment Answer Date Rec [...] PM EDT Temperature - - Respiratory Rate 16 05/09/2022 10:46 AM EST Oxygen Saturation 98% 10/27/2024 1:56 PM EDT Inhaled Oxygen Concentration - - Weight 74.4 kg (164 lb) 10/27/2024 1:56 PM EDT Height 175.3 cm (5' 9 ) 10/27/2024 1:56 PM EDT Body Mass Index 24.22 10/27/2024 1:56 PM EDT Plan of Treatment Upcoming Encounters Date Type Department Care Team (Late st Contact Info) Description 01/26/2025 2:00 PM EDT Office Visit [facility] [address] [place] [address] Shruti Verdugo MD [address] [place] [address] Health Maintenance Due Date Last Done Comments CT Colonography 1971 FIT-DNA 1971 FIT 1970 FOBT 1970 Medicare Annual Wellness (AWV) 1970 Sigmoidoscopy 1971 Depression Screening 1983 Hepatitis B Vaccines (1 of 3 - 19+ 3-dose series) 1990 Pap Smear 1992 Adult Tetanus 1993 Cervical Cancer Screening 2001 HPV/Cotest 2001 Colonoscopy 09/03/2018 09/03/2008 Colorectal Cancer Screening 09/03/2018 Pneumococcal Vaccine: Pediatrics (0 to 5 Years) and At-Risk Patients (6 to 64 Years) (3 of 3 - PCV20 or PCV21) 2021 05/21/2011, 05/21/2004 Zoster Vaccines (1 of 2) 2021 COVID-19 Vaccine (1 - 2023-2 5 season) 2024 Mammogram 08/23/2024 08/23/2022, 04/21/2019 Influenza Vaccine (Season Ended) 2025 HIB Vaccines Aged Out No longer eligi ble based on patient's age to complete this topic HPV Vaccines Aged Out No longer eligi ble based on patient's age to complete this topic IPV Vaccines Aged Out No longer eligi ble based on patient's age to complete this topic Meningococcal B Vaccine Aged Out No l onger eligible based on patient's age to complete this topic Meningococcal Vaccine Aged Out No zulema adelfo eligible based on patient's age to complete this topic Rotavirus Vaccines Aged Out No longer eligible based on patient's age to complete this topic Medical Devices Implanted Type Area Vp Ad Products And Planning Device Identifier Shelf Expiration Date Model / Serial / Lot 4470 Fineline Ii Sterox [place] [id number] Implanted:09/18 (Quantity not on file) Lead 4470 FINELINE II STEROX EZ / [id number] / Evia Mallory [id number] Implanted:06/22 (Quantity not on file) Pacemaker EFDERICOIA MALLORY [id number] / [id number] / Pacer Khalida Watson,Gabriela Prado - [id number] - [id number] Implanted:Qty: 1 on 05/09/2022 by Adonay Willis MD at [facility] Pacemaker Biotron[employer] [id number] 09/18/2023 [id number] / [id number] / Insurance MEDICARE Care Teams Denture Contour Wire Specialist Relationship Specialty Start Date End Date Marietta Ruvalcaba MD [address] [place] [address] PCP - General Internal Medicine 07/21/24
--- OUTSIDE RECORDS SUMMARY | 2024-11-05 08:49 | XMS_ITS | Patient Health Record ---
Author Organization [facility] [place] Address [address] [place] [address] Care Team Providers Care Outreach Worker Name Role Phone Gibson Donnelly MD Primary Care Provider Isai Hicks Unavailable [phone] Allergies No Known Allergies Reason For Referral Reason Evaluate and Treat Diagnosis 1 Cyst of kidney, acqu ired (N28.1) Referring Provider First Name Jaqueline Referring Provider Last Name Priyank Referring Provider Speciality Nurse [facility] Referred Provider Bogdan Omalley Referred Address [address] [place], [place],[address], Referred Provider Specialty Nephrology General Notes Kathleen Omalley 09/18 03:31:46 PM >Appt 11/03/2024, [facility] OFFICE FOR SOONER APPT Referral Priority Routine Medications Medication SIG (Take, Route, Frequency, Duration) [...] Problem Status W/U Status Risk Notes Problem 69406661 Essential (prima ry) hypertension (I10) Active confirmed Problem 86448452 Hypercalcemia (E83.52) Active confirmed Problem 91680476 Acute kidney failure, unspecified (N17.9) Active confirmed Problem 63177370 Calculus of kidn ey (N20.0) Active confirmed Problem 302398078 Cyst of kidney, acquired (N28.1) Active confirmed Problem Hypovitaminosis D (E55.9) Active confirmed Problem Renal mass (300283556) Renal mass (N28.89) Active confirmed Problem 85040256 Pelvic pain (R10.2) Active confirmed Vital Signs Blood pressure diastolic 86 mm Hg 11/03/2024 Height 69 in 11/03/2024 Blood pressure systolic 150 mm Hg 11/03/2024 Weight 164 lbs 11/03/2024 BMI 24.22 kg/m2 11/03/2024 Encounters Encounter Location Date Provider Diagnosis [facility] [place] [address] [place] [address] 11/03/2024 Isaidarlene Russmelissa Hypovitaminosis D E5 5.9 ; Acute kidney [...] acquired (ICD-10 - N28.1) Plan Of Treatment Pending Test Test Name Order Date UA (URINALYSIS, COMPLETE) 11/03/2024 UA (URINALYSIS, COMPLETE) 07/01/2020 ALBUMIN, BLOOD 11/03/2024 CALCIUM 09/19/2021 CULTURE, URINE w SENSITIVITY 07/01/2020 CULTURE, URINE w SENSITIVITY 06/16/2020 MAGNESIUM 11/03/2024 PHOSPHORUS 11/03/2024 PTH INTACT (PARATHYROID HORMONE) 025 PTH INTACT (PARATHYROID HORMONE) 022 VITAMIN D, 25 LEVEL (TOTAL) 11/03/2024 CT Abdomen and Pelvis w/wo contrast 09/19 US Renals and Bladder 11/03/2024 BUN and CREATININE W/GFR 10/08/2020 Renal Artery Duplex 11/03/2024 MICROALBUMIN w REFUSE AND RECYCLING WORKER RATIO 11/03/2024 BMP (BASIC MET PANEL) w/eGFR CKD-EPI CBC WITH DIFF 11/03/2024 Future Test Test Name Order Date BMP (BASIC MET PANEL - W/GFR) 07/16/2020 URIC ACID 07/16/2020 PTH INTACT 07/16/2020 XR Abdomen AP (1 view) (KUB) * 1 US Renal 07/16/2021 XR Abdomen AP (1 view) (KUB) * 3 Next Appt Details Provider Name:Isai M Trevon, 12/08/2024 02:20:00 PM, [address] [place], [address], Insurance Providers Payer Name Payer Address Payer Phone Subscriber Number Group Number Insured Name Patient Relationship to Insured Coverage Start Date Coverage End Date [place] [address] [place] [address] [id number] Violeta Lozoya Self - patient is the insured 4 [place] 2ND [place] [address] [place], [place] [id number] Violeta Lozoya Self - patient is the insured Medical (General) History Medical History History ICD Code hypertension Hypothyroidism Kidney stone N20.0 Renal mass N28.89 10/26/20 No covid vaccine covid 01/2021 Surgical History Surgery Date(Month/Year) cysto, left ureteroscopy, left stent lucretia cement 06/09/20 pacemaker
--- OUTSIDE RECORDS SUMMARY | 2024-11-05 08:49 | XMS_ITS | Referral Summary ---
Author Organization [facility] Address [address] [place] [address] Care Team Providers Care Math Tutor Name Role Phone Marietta Ruvalcaba MD Primary Care Provider [phone] Encounters Date Type Department Care Team Description 10/27/2024 1:40 PM EDT Office Visit [address] [phone] Shruti Verdugo MD Dyspnea on exertion (Primary Dx); Neurocardiogenic syncope; Palpitations; Sick sinus syndrome (CMS/HCC); Cardiac pacemaker in situ; Essential hypertension; Sleep apnea, unspecified type 08/27/2024 Telephone [facility] [address] [place] [phone] Katheryn Jara MA 08/06/2024 Telephone [facility] [address] [place] [phone] Sofia Levy MA from Last 3 Months Allergies Active Allergy Reactions Criticality Noted Date Comments Vancomycin Rash Low 01/30/2022 Medications cholecalciferol (Vitamin D-3) 1,250 mcg (50,000 units) capsule cholecalciferol (vitamin D3) 1,250 mcg (50,000 unit) capsule TAKE ONE CAPSULE BY MOUTH ONCE WEEKLY 022 Active levothyroxine (Synthroid, Levoxyl) 125 mcg tablet Take 88 mcg by mouth before breakfast. Active diphenoxylate-a tropine (Lomotil) 2.5-0.025 mg tablet Active omeprazole (PriLOSEC) [address] capsule Active sucralfate (Carafate) 1 gram tablet Take 1 g by mouth before breakfast, before lunch, before evening meal, and at bedtime. Active amLODIPine (Norvasc) 10 mg tablet Take 10 mg by mouth in the morning. Active metoprolol succinate XL (Toprol-XL) 100 mg 24 hr tabletIndicatio ns:Essential hypertension Take 1 tablet (100 mg) by mouth in the morning. Do not crush or chew. 30 tablet 11 025 2025 Active atorvastatin (Lipitor) 20 mg tablet 1 (one) time each day at the same time. 2021 Discontinued metoprolol succinate XL (Toprol-XL) 50 mg 24 hr tablet Take 50 mg by mouth in the morning. 2024 Discontinued cholestyramine (Questran) 4 gram packet 2024 Discontinued metoprolol succinate XL (Toprol-XL) 25 [...] (03/15/2022): Added automatically from request for surgery [id number] Exhaustion of cardiac pacemaker battery 10/26/20 22 Overview (03/15/2022): Added automatically from request for surgery [id number] Chronic obstructive pulmonary disease 01/30/2022 Normal echocardiography [...] 04/18/2011 Hypoxemia 04/18/2011 Loss of appetite 04/18/2011 Immunizations Immunization Administration Dates Next Due Pneumococcal Conjugate PCV 13 05/21/2011 Pneumococcal Polysaccharide PPV23 05/21/2004 Social History Tobacco Use Types Packs/Day Years Used Date Smoking Tobacco: Former Cigarettes 0.5 2.8 S tarted: 01/2022 Passive Smoke Exposure: Never Smokeless Tobacco: Never Tobacco Cessation:Counseling Given: Not Answered Alcohol Use Standard Drinks/Week Comments Yes 0 (1 standard drink = 0.6 oz pur e alcohol) occ [place] Safety & Environment Answer Date Rec orded [...] Description 01/26/2025 2:00 PM EDT Office Visit [facility] [address] [place] [phone] Shruti Verdugo MD [address] [place] [address] [id number] [place] [address] Medical Devices Implanted Type Area Wagon Winder Device Identifier Shelf Expiration Date Model / Serial / Lot [id number] Fineline Ii Sterox Ez [id number] Implanted:09/18 (Quantity not on file) Lead [id number] FINELINE II STEROX EZ / [id number] / Tosha Tejada [id number] Implanted:06/22 (Quantity not on file) Pacemaker TOSHA TEJADA [id number] / [id number] / Pacer Shirley,DualGabriela - [id number] Implanted:Qty: 1 on 05/09/2022 by Adonay Willis MD at [facility] Pacemaker [employer] [id number] 09/18/2023 [id number] / [id number] / Insurance MEDICARE Care Teams Math Tutor Relationship Specialty Start Date End Date Marietta Ruvalcaba MD [address] [place] [phone] PCP - General Internal Medicine 07/21/24
--- OUTSIDE RECORDS SUMMARY | 2024-11-05 08:49 | XMS_ITS | Clinical Summary ---
Author Organization [facility] Address [address] [place] [address] Care Team Providers Care Cell Pourer Name Role Phone Marietta Ruvalcaba MD Primary Care Provider [phone] Jaqueline Yost TECHNICAL ACCOUNT MANAGER Unavailable [phone] Allergies Active Allergy Reactions Criticality Noted Date Comments Vancomycin Rash Low 01/30/2022 Medications budesonide-formoter ol (Symbicort) 160-4.5 MCG/ACT inhaler Inhale 2 puffs. Active diphenoxylate-atrop ine (Lomotil) 2.5-0.025 MG tablet Take 1 tablet 4 times a day by oral route as needed. Active metoprolol tartrate (Lopressor) 100 MG tablet Take 100 mg by mouth in the morning. 3 Active rosuvastatin (Crestor) 10 MG tablet Take 10 mg by mouth in the morning. 3 Active omeprazole (PriLOSEC) [address] capsuleIndications: Gastroesophageal reflux disease, unspecified whether esophagitis present Take 1 capsule (40 mg) by mouth in the morning. Take before meals. Do not crush or chew. . 90 capsule 3 3 Active Cholecalciferol (Vitamin D) 50 MCG (2000 UT) capsuleIndications: Vitamin D deficiency Take 1 capsule (50 mcg) by mouth 1 (one) time per week 14 capsule 3 4 Active sucralfate (Carafate) 1 g tabletIndications:H istory of stomach ulcers Take 1 tablet (1 g) by mouth in the morning and 1 tablet (1 g) at noon and 1 tablet (1 g) in the evening and 1 tablet (1 g) before bedtime. Take before meals. 120 tablet 11 4 Active levothyroxine (Synthroid) 88 MCG tabletIndications:A cquired hypothyroidism Take 1 tablet (88 mcg) by mouth Daily Take on an empty stomach 90 tablet 1 5 Active amLODIPine (Norvasc) 10 MG tabletIndications:P rimary hypertension Take 1 tablet (10 mg) by mouth Daily 90 tablet 3 5 Active topiramate (Topamax) 25 MG tabletIndications:M igraine without aura and without status migrainosus, not intractable Take 1 tablet (25 mg) by mouth at bedtime 90 tablet 5 Active Active Problems Problem Noted Date Diagnosed Date Fatigue 01/10/2023 Hallucination, visual 01/10/2023 Left renal mass 01/10/2023 Nausea and vomiting 01/10/2023 Family history of breast cancer 07/27/2022 Depressive disorder 05/30/2022 Dyslipidemia 05/30/2022 Exhaustion of cardiac pacemaker battery 03/15/20 22 Overview (01/10/2023): Added automatically from request for surgery [id number] Chronic obstructive pulmonary disease 01/30/2022 Sick sinus syndrome 01/30/2022 Overview (01/10/2023): Added automatically from request for surgery [id number] Vitamin D deficiency 09/15/2021 Disc displacement, thoracic 08/05/2018 Other chronic pain 07/29/2018 History of methicillin resis tant Staphylococcus aureus infection 07/13/2018 H/O: hysterectomy 04/01/2018 Family history of malignant neoplasm of gastrointestinal tract 01/08/2017 Cigarette smoker 12/28/2016 Migraine without aura and wi thout status migrainosus, not intractable 12/28/2016 Acquired hypothyroidism 10/17/2016 GERD (gastroesophageal reflux disease) 6 Primary hypertension 03/27/2013 Abdominal pain 02/26/2012 Diarrhea 02/26/2012 Presence of cardiac pacemaker 09/07/2011 Sinus node dysfunction 09/07/2011 Hyperlipidemia 04/20/2011 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 Tobacco dependence syndrome 04/19/2011 Family history of endocrine disorder 04/18/2011 Sleep apnea 04/18/2011 Bulimia Resolved Problems Problem Noted Date Diagnosed Date Resolved Date Bronchiectasis with acute lo wer respiratory infection 01/10/2023 03/12/2024 Difficulty in walking, not e lsewhere classified 01/10/2023 03/12/2024 MRSA (methicillin resistant Staphylococcus aureus) 01/10/2023 03/12/2024 Axillary lump, right 07/27/2022 024 Pain in pacemaker pocket due to device 07/18/2022 03/12/2024 Cigarette smoker one half pack a day or less 9 03/12/2024 Acute exacerbation of bronchiectasis 07/12/2018 03/12/2024 Chronic obstructive pulmonar y disease with acute lower respiratory infection 07/05/20182023 Acute recurrent maxillary sinusitis 01/08/2017 03/12/2024 Disability of walking 11/07/20162023 Hypokalemia 10/23/2013 03/12/2024 Headache 03/27/2013 03/12/2024 Pain in limb 03/27/2013 03/12/2024 Acute bronchitis 03/07/2012 03/12/2024 Weight loss 02/26/2012 03/12/2024 Lymphadenopathy 04/19/2011 03/12/2024 Chronic asthmatic bronchitis with acute exacerbation 04/18/2011 03/12/2024 Hypoxemia 04/18/2011 03/12/2024 Loss of appetite 04/18/2011 03/12/2024 Syncope and collapse 04/18/2011 024 Overview (01/10/2023): [facility] Encounters Date Type Department Care Team Description 10/02/2024 Telephone [facility] [address] [place] [place] [address] Marietta Ruvalcaba MD 09/29/2024 Results Follow-Up [facility] [address] [place] [address] Jaqueline Yost NP Kidney cysts (Primary Dx) 09/25/2024 10:00 AM EDT Ancillary Procedure [facility] [address] [place] [address] Renal mass (Primary Dx) 09/25/2024 Travel 09/22/2024 11:30 AM EDT Office Visit [facility] [address] [place] [address] Jaqueline Yost NP Primary hypertension (Primary Dx); Bulimia nervosa, unspecified ; Migraine without aura and without status migrainosus, not intractable ; Acquired cystic kidney disease 09/22/2024 Bamboo flowsheet [facility] [address] [facility] [place] [address] Jaqueline Yost NP 09/22/2024 Travel 09/19/2024 Results Follow-Up [facility] [address] [facility] [place] [address] Sofia Huff NP 09/13/2024 Results Follow-Up [facility] [address] [facility] [place] [address] Sofia Huff NP 09/12/2024 Orders Only [facility] [address] [facility] [place] [address] Sofia Huff NP Adrenal adenoma, unspecified laterality 09/12/2024 Telephone [facility] [address] [facility] [place] [address] Marietta Ruvalcaba MD 09/08/2024 3:45 PM EDT Ancillary Procedure [facility] [address] [place] [address] Acquired cystic kidney disease; Left renal mass 09/08/2024 Travel 09/03/2024 11:00 AM EDT Office Visit [facility] [address] [place] [address] Jaqueline Yost NP Primary hypertension (Primary Dx); Acquired cystic kidney disease; Left renal mass; Migraine without aura and without status migrainosus, not intractable ; Chronic obstructive pulmonary disease, unspecified (HCC); Sick sinus syndrome (HCC) 09/03/2024 Bamboo flowsheet [facility] [address] [facility] [place] [phone] Jaqueline Yost NP 09/03/2024 Travel 09/01/2024 Results Follow-Up [facility] [address] [facility] [place] [phone] Jaqueline Yost NP 09/01/2024 Orders Only [facility] [place] [address] [facility] [place] [phone] Sofia Carvalho MA Acute nonintractable headache, unspecified headache type 08/27/2024 Telephone [facility] [address] [facility] [place] [address] Marietta Ruvalcaba MD 08/09/2024 Abstract [place] [id number] [facility] [place] [phone] Jaqueline Yost NP 08/05/2024 3:30 PM EDT Office Visit [facility] [address] [facility] [place] [phone] Jaqueline Yost NP Acute nonintractable headache, unspecified headache type (Primary Dx); Primary hypertension ; Tooth pain 08/05/2024 Bamboo flowsheet [place] [address] [facility] [place] [phone] Jaqueline Yost NP 08/05/2024 Travel from Last 3 Months Immunizations Immunization Administration Dates Next Due Pneumococcal Conjugate PCV 13 05/21/2011 Pneumococcal Polysaccharide PPSV23 05/21/2004 Family History Medical History Relation Name Comments Asthma Brother Dallas Lumbar disc disease Brother Dallas Thyroid disease Daughter Coronary artery disease Father Mino Diabetes Father Mino Heart disease Father Mino Hypertension Father Mino CHAPMAN Father Mino Obesity Father Mino nonalcoholic steatohepatitis Father Mino Cancer Maternal Grandmother Ulen large bowel cancer Maternal Grandmother Ulen Atrial fibrillation Mother Luisana Heart disease Mother Luisana Hypertension Mother Luisana Obesity Mother Luisana Osteoarthritis Mother Luisana Thyroid disease Mother Luisana Asthma Sister Babs Melanoma Sister Babs Relation Name Status Comments Brother Dallas Daughter Father Mino Maternal Grandmother Ulen Mother Luisana Alive Sister Babs Social History Tobacco Use Types Packs/Day Years Used Date Smoking Tobacco: Former Cigarettes Q uit: 01/2021 Smokeless Tobacco: Never Tobacco Cessation:Counseling Given: Not Answered Alcohol Use Standard Drinks/Week Comments Yes 3 (1 standard drink = 0.6 oz pur e alcohol) caffeine: 2-3 cups per day [id number] Health Literacy Answer Date Recor ded How often do you need to hav e someone help you when you read instructions, pamphlets, or other written material from your doctor or pharmacy? Sometimes 03/08/2024 Social Connection and Isolation Panel [NHANES] A nswer Date Recorded In a typical week, how many times do you talk on the phone with family, friends, or neighbors? Three times a week 03/08/2024 How often do you get togethe r with friends or relatives? Once a week 03/08/2024 How often do you attend [facility] or episcopalian services? Patient declined 03/08/2024 Do you belong to any clubs o r organizations such as gnosticist groups, unions, fraternal or athletic groups, or school groups? No 03/08/2024 How often do you attend meet ings of the clubs or organizations you belong to? Never 03/08/2024 Are you , , di vorced, , never , or living with a partner? 03/08/2024 AUDIT-C Answer Date Recorded Q1: How often do you have a drink containing alc ohol? 2-4 times a month 03/08/2024 Q2: How many drinks containi ng alcohol do you have on a typical day when you are drinking? 1 or 2 03/08/2024 Q3: How often do you have si x or more drinks on one occasion? Never 03/08/2024 Overall Financial Resource Strain (CARDIA) Answe r Date Recorded How hard is it for you to pa y for the very basics like food, housing, medical care, and heating? Patient declined 03/08/2024 PHQ-2 Answer Date Recorded Patient Health Questionnaire-2 Score 0 03/12/2024 [facility] of Occupat ional Health - Occupational Stress Questionnaire Answer Date Recorded Do you feel stress - tense, restless, nervous, or anxious, or unable to sleep at night because your mind is troubled all the time - these days? Not at all 03/08/2024 Exercise Vital Sign Answer Date Recorde d On average, how many days pe r week do you engage in moderate to strenuous exercise (like a brisk walk)? 0 days 03/08/2024 On average, how many minutes do you engage in exercise at this level? 0 min 03/08/2024 Hunger Vital Sign Answer Date Recorded Within the past 12 months, y ou worried that your food would run out before you got the money to buy more. Patient declined Within the past 12 months, t he food you bought just didn't last and you didn't have money to get more. Never true PRAPARE - Transportation Answer Date Re corded In the past 12 months, has l ack of transportation kept you from medical appointments or from getting medications? No 02/18 In the past 12 months, has l ack of transportation kept you from meetings, work, or from getting things needed for daily living? No 03/08/2024 Housing Stability Vital Sign Answer Alejo e Recorded In the last 12 months, was t here a time when you were not able to pay the mortgage or rent on time? Patient declined 03/08/20 24 Number of Times Moved in the Last Year Not on fi le 03/08/2024 At any time in the past 12 m [facility], were you homeless or living in a group home (including now)? No 03/08/2024 Comments Unknown Sex and Gender Information Value Date Recorded Sex Assigned at Not on file Legal Sex Female 7:19 PM EDT Gender Identity Not on file Sexual Orientation Not on file Last Filed Vital Signs Vital Sign Reading Time Taken Comments Blood Pressure 132/84 09/22/2024 11:30 AM EDT Pulse 72 04/04/2023 2:07 PM EST Temperature 36.3 C (97.4 F) 09/22/2024 11:30 AM EDT Respiratory Rate 18 04/04/2023 2:07 PM EST Oxygen Saturation 99% 04/04/2023 2:07 PM EST Inhaled Oxygen Concentration - - Weight 74.8 kg (165 lb) 09/22/2024 11:30 AM EDT Height 175.3 cm (5' 9 ) 04/04/2023 2:07 PM EST Body Mass Index 24.37 04/04/2023 2:07 PM EST Plan of Treatment Health Maintenance Due Date Last Done Comments Mammogram 08/24/2023 08/23/2022, 06/2018, 03/06/2017 Influenza Vaccine (Season Ended) 2025 Medicare Annual Wellness (AWV) 03/12/2025 1 , 01/30/2022, 01/30/2022 Colonoscopy Discontinued 09/03/2008 Colorectal Cancer Screening Discontinued FIT-DNA Discontinued 03/29/2022 CT Colonography Discontinued FIT Discontinued FOBT Discontinued Sigmoidoscopy Discontinued Procedures Procedure Name Priority Date/Time Associated Diagnosis Comments CT ABDOMEN PELVIS W IV CONTRAST Routine 09/25/2024 10:25 AM EDT Renal mass BASIC METABOLIC PANEL Routine 09/15/2024 1:06 PM EDT Adrenal adenoma, unspecified laterality METANEPHRINES PLASMA Routine 09/15/2024 1:06 PM EDT Adrenal adenoma, unspecified laterality PLASMA RENIN ACTIVITY, LC/MS/MS Routine 09/15/2024 1:06 PM EDT Adrenal adenoma, unspecified laterality CORTISOL, TOTAL Routine 09/15/2024 1:06 PM EDT Adrenal adenoma, unspecified laterality ALDOSTERONE, LC/MS/MS Routine 09/15/2024 1:06 PM EDT Adrenal adenoma, unspecified laterality CT ABDOMEN PELVIS WO IV CONTRAST Routine 09/08/2024 3:45 PM EDT 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 CT HEAD WO IV CONTRAST STAT 09/01/2024 8:40 AM EDT Acute nonintractable headache, unspecified headache type LAB COLOGUARD COLON CANCER SCREEN Routine 03/29/2022 BI MAMMOGRAM SCREENING BILATERAL Routine 04/21/2019 12:00 PM EST Encounter for screening for cardiovascular disorders Tobacco use Essential (primary) hypertension Encounter for screening mammogram for malignant neoplasm of breast Hypothyroidism, unspecified Syncope and collapse Presence of cardiac pacemaker Other injury of unspecified body region, initial encounter from Last 3 Months or Most Recently Relevant to Health Maintenance Results * CT abdomen pelvis w IV contrast (09/25/2024 10:25 AM EDT) Anatomical Region Laterality Modality Body, Pelvis, Abdomen Computed T omography Abdominal wall procedure / Unknown 09/25/2024 6:32 PM EDT Narrative 09/25/2024 6:[address] ABDOMEN PELVIS W IV CONTRAST HISTORY: Renal mass, abnormal CT abdomen pelvis COMPARISON: CT abdomen pelvis September 08, 2024 TECHNIQUE: The study consists of helical images obtained through the abdomen and pelvis with the aid of mL Omnipaque 350 nonionic contrast administered intravenously. Coronal and sagittal reformations were reconstructed. The patient tolerated the procedure and there were no immediate complications. FINDINGS: ABDOMEN: VISUALIZED CHEST: Visualized portions of the lungs show no consolidation or effusions. LIVER: No focal mass or intrahepatic biliary dilatation. GALLBLADDER: Removed SPLEEN: No focal masses or enlargement. KIDNEYS: Kidneys enhance symmetrically. Cortical cysts arising from the lower pole of the left kidney are noted. No perinephric inflammation or hydronephrosis. ADRENALS: Stable small right adrenal nodule, low density. PANCREAS: No contour deforming lesions are seen. RETROPERITONEUM: Atherosclerotic plaquing of the distal abdominal aorta is seen and involving the common iliac arteries. BOWEL: No abnormally dilated loops of bowel are seen. PELVIS COLON: Retained stool is seen in the colon and there is very mild diverticulosis coli of the distal colon. PERITONEAL CAVITY: No free fluid or free air. BLADDER: Normal. REPRODUCTIVE ORGANS: No abnormalities. OSSEOUS STRUCTURES: There is facet joint osteoarthritis and disc degeneration with annular disc bulging. No compression fracture. BODY WALL: No ventral wall hernia. Midline scar is seen in the pelvis. IMPRESSION: 1. No hydronephrosis. 2. Stable appearing exophytic cystic lesions arising from the inferior left kidney largest of these has a mean Hounsfield density of 32 and measures 2.5 cm in diameter which is stable. 3. Stable small adenoma of the right adrenal gland. Dictated on: 09/25/2024 12:59 PM This report has been electronically signed and approved by the interpreting Radiologist. Procedure Note Luis Fernando Pham MD - 09/25/2024 CT ABDOMEN PELVIS W IV CONTRAST HISTORY: Renal mass, abnormal CT abdomen pelvis COMPARISON: CT abdomen pelvis September 08, 2024 TECHNIQUE: The study consists of helical images obtained through theabdomen and pelvis with the aid of mL Omnipaque 350 nonionic contrastadministered intravenously. Coronal and sagittal reformations werereconstructed. The patient tolerated the procedure and there were noimmediate complications. FINDINGS: ABDOMEN: VISUALIZED CHEST: Visualized portions of the lungs show no consolidationor effusions. LIVER: No focal mass or intrahepatic biliary dilatation. GALLBLADDER: Removed SPLEEN: No focal masses or enlargement. KIDNEYS: Kidneys enhance symmetrically. Cortical cysts arising from thelower pole of the left kidney are noted. No perinephric inflammation orhydronephrosis. ADRENALS: Stable small right adrenal nodule, low density. PANCREAS: No contour deforming lesions are seen. RETROPERITONEUM: Atherosclerotic plaquing of the distal abdominal aorta isseen and involving the common iliac arteries. BOWEL: No abnormally dilated loops of bowel are seen. PELVIS COLON: Retained stool is seen in the colon and there is very milddiverticulosis coli of the distal colon. PERITONEAL CAVITY: No free fluid or free air. BLADDER: Normal. REPRODUCTIVE ORGANS: No abnormalities. OSSEOUS STRUCTURES: There is facet joint osteoarthritis and discdegeneration with annular disc bulging. No compression fracture. BODY WALL: No ventral wall hernia. Midline scar is seen in the pelvis. IMPRESSION: 1. No hydronephrosis. 2. Stable appearing exophytic cystic lesions arising from the inferiorleft kidney largest of these has a mean Hounsfield density of 32 andmeasures 2.5 cm in diameter which is stable. 3. Stable small adenoma of the right adrenal gland. Dictated on: 09/25/2024 12:59 PM This report has been electronically signed and approved by theinterpreting Radiologist. Jaqueline Yost NP IMG CT PROCEDURES Final Result * Metanephrines Plasma (09/15/2024 1:06 PM EDT) METANEPHRINE, FREE <25 <=57 pg/mL [facility] Comment: This test was developed and its analytical performance characteristics have been determined by [email or web address] [place]. It has not been cleared or approved by the U.S. Food and Drug Administration. This assay has been validated pursuant to the CLIA regulations and is used for clinical purposes. NORMETANEPHRINE, FREE 74 <=148 pg/mL [facility] Comment: This test was developed and its analytical performance characteristics have been determined by [email or web address] [place] [place]. It has not been cleared or approved by the U.S. Food and Drug Administration. This assay has been validated pursuant to the CLIA regulations and is used for clinical purposes. TOTAL, FREE (MN+NMN) 74 <=205 pg/mL [facility] Comment: For additional information, please refer to http://education.Cash Check Card/faq/MetFractFree (This link is being provided for informational/educatio informational/educational purposes only.) Elevations >4-fold upper reference range: strongly suggestive of a pheochromocytoma(1). Elevations >1- 4-fold upper reference range: significant but not diagnostic, may be due to medications or stress. Suggest running 24 hr urine fractionated metanephrines and/or serum Chromagranin A for confirmation. Reference: (1)Maryan Sagastume et al, Plasma Chromogranin A or Urine Fractionated Metanephrines Follow-Up Testing Improves the Diagnostic Accuracy of Plasma Fractionated Metanephrines for Pheochromocytoma. The Journal of Clinical Endocrinology # Metabolism 93(1), 91-95, 2008. This test was developed and its analytical performance characteristics have been determined by [email or web address] [place] [place]. It has not been cleared or approved by the U.S. Food and Drug Administration. This assay has been validated pursuant to the CLIA regulations and is used for clinical purposes. Blood Venous blood specimen / Unknown 09/15/2024 1:06 PM EDT 09/15/2024 1:08 PM EDT Narrative Resulting Agency Comment Performing Organization Information Site ID: [email or web address] Name: [email or web address] Address: [address] [place] [address] [place] Director: Jimmy Lawrence M.D.,PhD Sofia Refugio TECHNICAL ACCOUNT MANAGER LAB BLOOD ORDERABLES Final Resu lt Performing Organization Address [facility] de Phone Number [facility] * Aldosterone (09/15/2024 1:06 PM EDT) ALDOSTERONE, LC/MS/MS 2 see note ng/dL [facility] Comment: Unable to flag abnormal result(s), please refer to reference range(s) below: Adult Reference Ranges for Aldosterone, LC/MS/MS: Upright 8:00 - 10:00 am < or = 28 ng/dL Upright 4:00 - 6:00 pm < or = 21 ng/dL Supine 8:00 - 10:00 am 3 - 16 ng/dL This test was developed and its analytical performance characteristics have been determined by [email or web address] [place] [place]. It has not been cleared or approved by the U.S. Food and Drug Administration. This assay has been validated pursuant to the CLIA regulations and is used for clinical purposes. Blood Venous blood specimen / Unknown 09/15/2024 1:06 PM EDT 09/15/2024 1:08 PM EDT Narrative Resulting Agency Comment Performing Organization Information Site ID: [email or web address] Name: [email or web address] Address: [address] [place] [id number] Director: Jimmy Lawrence M.D.,PhD Sofia Refugio TECHNICAL ACCOUNT MANAGER LAB BLOOD ORDERABLES Final Resu lt Performing Organization Address [facility] de Phone Number [facility] * Renin direct assay (09/15/2024 1:06 PM EDT) Pathologist [facility] PLASMA RENIN ACTIVITY, LC/MS/MS 1.19 0.25 - 5.82 ng/mL/h [facility] Comment: This test was developed and its analytical performance characteristics have been determined by [email or web address]. It has not been cleared or approved by the FDA. This assay has been validated pursuant to the CLIA regulations and is used for clinical purposes. Blood Venous blood specimen / Unknown 09/15/2024 1:06 PM EDT 09/15/2024 1:08 PM EDT Narrative Resulting Agency Comment Performing Organization Information Site ID: [email or web address] Name: [email or web address], Address: [facility] [place] [address] Director: Olesya Adan MD,PhD,EWA Sofia Huff TECHNICAL ACCOUNT MANAGER LAB BLOOD ORDERABLES Final Resu lt Performing Organization Address [facility] de Phone Number [facility] * Cortisol (09/15/2024 1:06 PM EDT) CORTISOL, TOTAL 6.6 mcg/dL [facility] Comment: Reference Range: For 8 a.m.(7-9 a.m.) Specimen: 4.0-22.0 Reference Range: For 4 p.m.(3-5 p.m.) Specimen: 3.0-17.0 * Please interpret above results accordingly * Blood Venous blood specimen / Unknown 09/15/2024 1:06 PM EDT 09/15/2024 1:08 PM EDT Narrative Resulting Agency Comment Performing Organization Information Site ID: [email or web address] Name: [email or web address] Address: [address] [place] [address], [address] [place] [id number] Director: Tacho Plata MD us Sofia Huff TECHNICAL ACCOUNT MANAGER LAB BLOOD ORDERABLES Final Resu lt Performing Organization Address [facility] de Phone Number [facility] * Basic metabolic panel (09/15/2024 1:06 PM EDT) Glucose 91 65 - 99 mg/dL [facility] Comment: Fasting reference interval BUN 18 7 - 25 mg/dL [facility] Creatinine 0.99 0.50 - 1.03 mg/dL [facility] EGFR 68 > OR = 60 mL/min/1.7 3m2 [facility] BUN/CREATININE RATIO SEE NOTE: 6 - 22 (calc) [facility] Comment: Not Reported: BUN and Creatinine are within reference range. Sodium 138 135 - 146 mmol/L [facility] Potassium, Bld 4.2 3.5 - 5.3 mmol/L [facility] Chloride 102 98 - 110 mmol/L [facility] Carbon Dioxide 26 20 - 32 mmol/L [facility] Calcium 9.8 8.6 - 10.4 mg/dL [facility] Blood Venous blood specimen / Unknown 09/15/2024 1:06 PM EDT 09/15/2024 1:08 PM EDT Narrative Resulting Agency Comment Performing Organization Information Site ID: QPT Name: [facility] Address: [address] [place] [address], [address] [place] [id number] Director: Tacho Plata MD Sofia Huff NP LAB BLOOD ORDERABLES Final Resu lt [facility] * CT abdomen pelvis wo IV contrast (09/08/2024 3:45 PM EDT) Anatomical Region Laterality Modality Body, Pelvis, Abdomen Computed T omography Abdominal wall procedure / Unknown 09/08/2024 7:01 PM EDT Narrative 09/08/2024 7:01 PM EDT EXAM: CT Abdomen Pelvis Without IV Contrast. REASON FOR EXAM: Left kidney cyst, urinary frequency. TECHNIQUE: Spiral images are obtained through the abdomen and pelvis. IV Contrast: None COMPARISON: 09/28/2021 FINDINGS, Abdomen: Lower Chest: Lung bases appear clear. Heart is not enlarged. No coronary calcifications are visualized. Liver: There is a Rik's lobe. No focal abnormality is apparent. Spleen: Unremarkable. Gallbladder/Biliary system: Gallbladder is absent. No biliary dilatation identified. Pancreas: Unremarkable Adrenals: There is low-density fullness of the right adrenal gland measuring 2 cm, unchanged. Kidneys: No hydronephrosis is apparent. Multiple low-density exophytic masses off the left kidney are present. The largest of these off the lower pole measures 2.4 cm and is unchanged in size. This demonstrates indeterminant density of 37 HU. Several additional left mid and lower pole cysts measure 2.1 and 1.6 cm but appear unchanged. These demonstrate a density of 20 and 21 HU respectively. There is a high density 0.7 cm cyst or nodule in the central left kidney. No calcifications are apparent. Retroperitoneum: There is calcification of the aorta particularly in the distal segments and at the bifurcation without dilatation. Bowel: No dilatation, wall or fold thickening identified. There is a large amount of stool throughout the colon. Multiple diverticula in the left colon are present. Appendix is not discretely visualized. Peritoneum/Mesentery: Clear Pelvis: No mass, adenopathy or free fluid is apparent. Bladder is unremarkable. Inguinal regions are clear. Uterus is not visualized. IMPRESSION : 1. Several indeterminate masses of the left mid and lower pole kidney. The largest of these is soft tissue density and measures 2.4 cm but is unchanged from the prior exam. CT with IV contrast, ultrasound or MRI would be necessary to more fully characterize this finding if not previously performed. 2. Low-density right adrenal gland nodule likely represents an adenoma measuring 2 cm, unchanged. 3. Substantial atherosclerotic calcification of the distal abdominal aorta, bifurcation region. *This report is generated using voice recognition reporting (StoryToys). On occasion [employer]To[employer] erroneously drops words from the report or replaces the spoken word with similar sounding words. Please call with any questions/concerns regarding this report.* Dictated and transcribed 09/08/24/dpd This report has been electronically signed and approved by the interpreting radiologist. Procedure Note Jamal Alexander MD - 09/08/2024 EXAM: CT Abdomen Pelvis Without IV Contrast. REASON FOR EXAM: Left kidney cyst, urinary frequency. TECHNIQUE: Spiral images are obtained through the abdomen and pelvis. IV Contrast: None COMPARISON: 09/28/2021 FINDINGS, Abdomen: Lower Chest: Lung bases appear clear. Heart is not enlarged. No coronarycalcifications are visualized. Liver: There is a Rik's lobe. No focal abnormality is apparent. Spleen: Unremarkable. Gallbladder/Biliary system: Gallbladder is absent. No biliary dilatationidentified. Pancreas: Unremarkable Adrenals: There is low-density fullness of the right adrenal glandmeasuring 2 cm, unchanged. Kidneys: No hydronephrosis is apparent. Multiple low-density exophyticmasses off the left kidney are present. The largest of these off the lowerpole measures 2.4 cm and is unchanged in size. This demonstratesindeterminant density of 37 HU. Several additional left mid and lower polecysts measure 2.1 and 1.6 cm but appear unchanged. These demonstrate adensity of 20 and 21 HU respectively. There is a high density 0.7 cm cystor nodule in the central left kidney. No calcifications are apparent. Retroperitoneum: There is calcification of the aorta particularly in thedistal segments and at the bifurcation without dilatation. Bowel: No dilatation, wall or fold thickening identified. There is alarge amount of stool throughout the colon. Multiple diverticula in theleft colon are present. Appendix is not discretely visualized. Peritoneum/Mesentery: Clear Pelvis: No mass, adenopathy or free fluid is apparent. Bladder isunremarkable. Inguinal regions are clear. Uterus is not visualized. IMPRESSION : 1. Several indeterminate masses of the left mid and lower pole kidney. Thelargest of these is soft tissue density and measures 2.4 cm but isunchanged from the prior exam. CT with IV contrast, ultrasound or MRIwould be necessary to more fully characterize this finding if notpreviously performed. 2. Low-density right adrenal gland nodule likely represents an adenomameasuring 2 cm, unchanged. 3. Substantial atherosclerotic calcification of the distal abdominalaorta, bifurcation region. *This report is generated using voice recognition reporting (StoryToys).On occasion [employer] Pacee erroneously drops words from the report orreplaces the spoken word with similar sounding words. Please call with anyquestions/concerns regarding this report.* Dictated and transcribed 09/08/24/dpd This report has been electronically signed and approved by theinterpreting radiologist. Jaqueline Yost NP IMG CT PROCEDURES Final Result * CT head wo IV contrast (09/01/2024 8:40 AM EDT) Jaqueline Yost NP IMG CT PROCEDURES Final Result IMAGING * Cologuard?? colon cancer screening (03/29/2022) COLOGUARD RESULT REPORTABLE Cancelled - Duplicate Order Not Applicable [facility] 03/29/2022 Shani Gama DO LAB MOLECULAR DIAGNOSTICS ORDER ALBA Final Result [facility] * Bilateral screening mammogram (04/21/2019 12:00 PM EST) Anatomical Region Laterality Modality Breast Bilateral Mammography Narrative 04/16/2019 12:00 AM EST PERFORMED AT [facility] LOCATION:[id number] Procedure Note CONVERSION, GENERIC / Chung Navarro, LV - 11/24/2022 PERFORMED AT [facility] LOCATION:[id number] us Chung Navarro TECHNICAL ACCOUNT MANAGER IMG BI PROCEDURES Final Resul t from Last 3 Months or Most Recently Relevant to Health Maintenance Insurance MEDICARE Care Teams Cell Pourer Relationship Specialty Start Date End Date Marietta Ruvalcaba MD [address] [place], [place] [phone] PCP - General Family Medicine 03/03/24 Jaqueline Yost NP [address] [place], [place] [phone] Nurse Practitioner Family Medicine 03/03/24
--- OUTSIDE RECORDS SUMMARY | 2024-11-05 08:49 | XMS_ITS | Encounter Summary ---
Author Organization [facility] Address [address] [place] [address] Care Team Providers Care Roll Contour Grinder Name Role Phone Marietta uRvalcaba MD Primary Care Provider [phone] Jaqueline Yost RUBBER BLOCK LAYER Unavailable [phone] Encounter Details Date Type Department Care Team (Late st Contact Info) Description 09/13/2024 Results Follow-Up [facility] [address] [place] [address] Sofia Huff NP [address] [place], [place] [phone] Social History Tobacco Use Types Packs/Day Years Used Date Smoking Tobacco: Former Cigarettes Q uit: 01/2021 Smokeless Tobacco: Never Alcohol Use Standard Drinks/Week Comments Yes 3 [...] week 03/08/2024 How often do you attend chur or christian services? Patient declined 03/08/2024 Do you belong to any clubs o r organizations such as restorationist groups, unions, fraternal or athletic groups, or [...] Recorded Patient Health Questionnaire-2 Score 0 03/12/2024 [facility] - Occupational Stress Questionnaire Answer Date [...] any time in the past 12 m [facility], were you homeless or living in a mcc (including now)? No 03/08/2024 Comments Unknown Sex and Gender Information Value Date Recorded Sex Assigned at Not on file Legal Sex Female 7:19 PM EDT Gender Identity Not on file Sexual Orientation Not on file documented as of this encounter Plan of Treatment Not on file documented as of this encounter Visit Diagnoses Not on filedocumented in this encounter Care Teams Roll Contour Grinder Relationship Specialty Start Date End Date Marietta Ruvalcaba MD [address] [facility] [place] [address] PCP - General Family Medicine 03/03/24 Jaqueline Yost NP [address] [facility] [place] [address] Nurse Practitioner Family Medicine 03/03/24 documented as of this encounter
--- OUTSIDE RECORDS SUMMARY | 2024-11-05 08:49 | XMS_ITS | Encounter Summary ---
Author Organization [facility] tem Address [id number] [address] [place] [address] Care Team Providers Care Spacecraft Systems Engineer Name Role Phone Pcp, Not In System Primary Care Provider Unavail able Reason for Visit * Reason Onset Date Comments GENETICS 07/28/2022 CLERICAL Encounter Details Date Type Department Care Team (Late st Contact Info) Description 07/28/2022 Telephone [facility] Division of [facility] - Medical Oncology [address] [place] [address] Nancie Parson, [facility] [address] [address] GENETICS (CLERICAL) Social History Tobacco Use Types Packs/Day Years Used Date Smoking Tobacco: Former Cigarettes 1 30 1 991 - 2020 Smokeless Tobacco: Never Alcohol Use Standard Drinks/Week Comments Yes 0 (1 standard drink = 0.6 oz pur e alcohol) socailly Childcare Answer Date Recorded Childcare Unknown 10/30/2018 Employment Answer Date Recorded Employment Unknown 10/30/2018 Purpose - Life Answer Date Recorded Purpose and direction in life Unknown Comments No Sex and Gender Information Value Date Recorded Sex Assigned at Not on file Legal Sex Female 11:27 AM EDT Gender Identity Not on file Sexual Orientation Not on file COVID-19 Exposure Response Date Recorded In the last month, have you been in contact with someone who was confirmed or suspected to have Coronavirus / COVID-19? No / Unsure 07/27/2022 10:45 AM EST documented as of this encounter Miscellaneous Notes * Telephone Encounter - Latisha Schumacher - 07/28/2022 11:32 AM EST 07/28/22 TALKED TO PT EARLIER TODAY RE: PH. SHE THOUGHT SHE HAD HAD COLON POLYPS, AND POSSIBLE BCC. I LVM THAT I REVIEWED PATH, AND ALTHOUGH I SEE A COLON BX DONE, NO POLYPS WERE REMOVED & NO SKIN CA. GAVE SELF PAY RATES. SJ documented in this encounter Plan of Treatment Upcoming Encounters Date Type Department Care Team (Late st Contact Info) Description 01/28/2025 1:00 PM EDT Office Visit [facility], A Department of [facility] [address] [address] Elham Ortega MD [address] [address] documented as of this encounter Visit Diagnoses Not on filedocumented in this encounter Care Teams Spacecraft Systems Engineer Relationship Specialty Start Date End Date Pcp, [place] [address] PCP - General Family Medicine 09/19/23 documented as of this encounter
--- OUTSIDE RECORDS SUMMARY | 2024-11-05 08:49 | XMS_ITS | Encounter Summary ---
Author Organization [facility] Address [address] [place] [address] Care Team Providers Care Ball Points Inspector Name Role Phone Marietta Ruvalcaba MD Primary Care Provider [phone] Jaqueline Yost WEED SCIENCE RESEARCH TECHNICIAN Unavailable [phone] Encounter Details Date Type Department Care Team (Late st Contact Info) Description 09/19/2024 Results Follow-Up [facility] [address] [place] [address] Sofia Huff NP [address] [place], [place] [phone] Social History Tobacco Use Types Packs/Day Years [...] How often do you attend chur or presybeterian services? Patient declined 03/08/2024 Do you belong to any clubs o r organizations such as judaism groups, unions, fraternal or athletic groups, or [...] Recorded Patient Health Questionnaire-2 Score 0 03/12/[address]24 [facility] of [facility] - Occupational Stress Questionnaire Answer Date Recorded [...] time in the past 12 m [facility], were you homeless or living in a residential (including now)? No 03/08/2024 Comments Unknown Sex and Gender Information Value Date Recorded Sex Assigned at Not on file Legal Sex Female 7:19 PM EDT Gender Identity Not on file Sexual Orientation Not on file documented as of this encounter Plan of Treatment Not on file documented as of this encounter Visit Diagnoses Not on filedocumented in this encounter Care Teams Ball Points Inspector Relationship Specialty Start Date End Date Marietta Ruvalcaba MD [address] [facility] [place] [address] PCP - General Family Medicine 03/03/24 Jaqueline Yost NP [address] [facility] [place] [address] Nurse Practitioner Family Medicine 03/03/24 documented as of this encounter
--- OUTSIDE RECORDS SUMMARY | 2024-11-05 08:49 | XMS_ITS | Encounter Summary ---
Author Organization [facility] Address [address] [place] [address] Care Team Providers Care Yard Attendant Name Role Phone Marietta Ruvalcaba MD Primary Care Provider [phone] Jaqueline Yost BUCKET OPERATOR Unavailable [phone] Encounter Details Date Type Department Care Team (Late st Contact Info) Description 09/01/2024 Results Follow-Up [facility] [address] [place] [address] Jaqueline Yost NP [address] [place], [place] [phone] Social History Tobacco Use Types Packs/Day Years [...] How often do you attend chur or baptist services? Patient declined 03/08/2024 Do you belong to any clubs o r organizations such as samaritan groups, unions, fraternal or athletic groups, or [...] Recorded Patient Health Questionnaire-2 Score 0 03/12/2024 [facility] Occupat ional [facility] - Occupational Stress Questionnaire Answer Date Recorded [...] any time in the past 12 m [facility], were you homeless or living in a long-term (including now)? No 03/08/2024 Comments Unknown Sex and Gender Information Value Date Recorded Sex Assigned at Not on file Legal Sex Female 7:19 PM EDT Gender Identity Not on file Sexual Orientation Not on file documented as of this encounter Plan of Treatment Not on file documented as of this encounter Visit Diagnoses Not on filedocumented in this encounter Care Teams Yard Attendant Relationship Specialty Start Date End Date Marietta Ruvalcaba MD [address] [place] [address] PCP - General Family Medicine 03/03/24 Jaqueline Yost NP [address] [place] [address] Nurse Practitioner Family Medicine 03/03/24 documented as of this encounter
--- OUTSIDE RECORDS SUMMARY | 2024-11-05 08:50 | XMS_ITS | Encounter Summary ---
Author Organization [employer] [facility] tem Address [id number] [address] [place] [address] Care Team Providers Care Plastic Outfitter Name Role Phone Pcp, Not In System Primary Care Provider Unavail able Reason for Visit * Reason Onset Date Comments Home monitor 07/22/2024 Encounter Details Date Type Department Care Team (Late st Contact Info) Description 07/22/2024 [facility] [address] [place] [phone] Clemencia Phillips RN Home monitor Social History Tobacco Use Types Packs/Day Years Used Date Smoking Tobacco: Former Cigarettes 1 30 1 1 - 2020 Smokeless Tobacco: Never Alcohol Use Standard Drinks/Week Comments Yes 0 (1 standard drink = 0.6 oz pur e alcohol) socailly Childcare Answer Date Recorded Childcare Unknown 10/30/2018 Employment Answer Date Recorded Employment Unknown 10/30/2018 Hunger Screening Answer Date Recorded Within the past 12 months we worried whether our food would run out before we got money to buy more. Never True 12/06/2022 Within the past 12 months th e food we bought just didn't last and we didn't have money to get more. 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 Received call from [facility] cardiology patient would like to transfer home monitoring back to them. LM for patient to call back to confirm that she would like home monitoring transferred. Will await patient call back. * Telephone Encounter - LEI Yuen - 07/22/2024 3:05 PM EST Patient calls back and states she would like her Biotron[employer] remote monitoring transferred back to [facility]. Nilay Dee notified and he will transfer patient back to [facility]. documented in this encounter Plan of Treatment Upcoming Encounters Date Type Department Care Team (Late st Contact Info) Description 01/28/2025 1:00 PM EDT Office Visit [facility] Adult Endocrinology, A Department of [facility] [address] [address] Elham Ortega MD [address] [address] documented as of this encounter Visit Diagnoses Not on filedocumented in this encounter Care Teams Plastic Outfitter Relationship Specialty Start Date End Date Pcp, [place] [address] PCP - General Family Medicine 09/19/23 documented as of this encounter
--- OUTSIDE RECORDS SUMMARY | 2024-11-05 08:50 | XMS_ITS | Encounter Summary ---
Author Organization [facility] Address [address] [place] [address] Care Team Providers Care Medical Office Receptionist Name Role Phone Marietta Ruvalcaba MD Primary Care Provider Jaqueline Yost CURB SUPERVISOR Unavailable [phone] Shani Gama DO Unavailable Encounter Details Date Type Department Care Team (Late st Contact Info) Description 08/09/2024 Abstract [facility] [address] [place] [address] Jaqueline Yost CURB SUPERVISOR [address] [place], [place] [phone] Social History Tobacco Use Types Packs/Day Years [...] week 03/08/2024 How often do you attend [facility] or mormonism services? Patient declined 03/08/2024 Do you belong to any clubs o r organizations such as caodaism groups, unions, fraternal or athletic groups, or [...] Recorded Patient Health Questionnaire-2 Score 0 03/12/2024 [facility] - Occupational Stress [...] or rent on time? Patient declined 03/08/20 Number of Times Moved in the Last Year Not on fi le 03/08/2024 At any time in the past 12 m [place], were you homeless or living in a prison (including now)? No 03/08/2024 Comments Unknown Sex and Gender Information Value Date Recorded Sex Assigned at Not on file Legal Sex Female 7:19 PM EDT Gender Identity Not on file Sexual Orientation Not on file documented as of this encounter Plan of Treatment Not on file documented as of this encounter Visit Diagnoses Not on filedocumented in this encounter Care Teams Medical Office Receptionist Relationship Specialty Start Date End Date Marietta Ruvalcaba MD [address] [place] [address] PCP - General Family Medicine 03/03/24 Shani Gama DO [address] [facility] [address] [place] [phone] PCP - ACO Reach 07/04/24 08/21/24 Jaqueline Yost NP [address] [place], [place] [phone] Nurse Practitioner Family Medicine 03/03/24 documented as of this encounter
--- OUTSIDE RECORDS SUMMARY | 2024-11-05 08:50 | XMS_ITS | Clinical Summary ---
Author Organization [employer] s tem Address [id number] [address] [place] [address] Care Team Providers Care Advertising Internship Name Role Phone Pcp, Not In System Primary Care Provider Unavail able Allergies Active Allergy Reactions Criticality Noted Date Comments Vancomycin Hcl Rash Low 01/30/2022 Medications ibuprofen (ADVIL,MOTRIN) 800 mg tablet Take 1 tablet (800 mg total) by mouth as needed. 03/12/2015 Active diphenoxylate-a tropine (LOMOTIL) 2.5-0.025 mg per tablet Take 1 tablet by mouth 4 (four) times a day as needed for diarrhea. 02/26/2012 Active omeprazole (PriLOSEC) 40 mg capsule Take 1 capsule (40 mg total) by mouth every morning before breakfast. 03/24/2024 Active sucralfate (CARAFATE) 1 gram tablet Take 1 tablet (1 g total) by mouth in the morning and 1 tablet (1 g total) at noon and 1 tablet (1 g total) in the evening and 1 tablet (1 g total) before bedtime. 05/01/2024 Active levothyroxine (SYNTHROID, LEVOTHROID) 88 MCG tablet Take 1 tablet (88 mcg total) by mouth in the morning. 03/17/2024 Active metoprolol succinate XL (TOPROL XL) 25 mg 24 hr tablet Take 4 tablets (100 mg total) by mouth in the morning. 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 Family History Medical History Relation Name Comments Diabetes Father Martin Steel Heart disease Father Martin Steel Hypertension Father Martin Steel Testicular cancer Maternal Grandfather Tutu toro Colon cancer Maternal Grandmother Ayaka pederson Breast cancer Maternal cousin 1 BRCA 1/2 Maternal cousin 2 BRCA 1/2 Maternal cousin 3 BRCA 1/2 Maternal cousin 4 Breast cancer Maternal great-grandmother Coronary artery disease Mother Elva Steel Heart disease Mother Elva Steel Hypertension Mother Elva Steel Breast cancer Other maternal great -mary Relation Name Status Comments Father Martin Steel Maternal Grandfather Tutu toro Maternal Grandmother Ayaka pederson Maternal cousin 1 Maternal cousin 2 Alive Maternal cousin 3 Alive Maternal cousin 4 Alive Maternal great-grandmother Mother Elva Steel Alive Other Social History Tobacco Use Types Packs/Day Years Used Date Smoking Tobacco: Former Cigarettes 1 30 1 991 - 2020 Smokeless Tobacco: Never Tobacco Cessation:Counseling Given: Not [...] Sign Reading Time Taken Comments Blood Pressure 160/92 05/15/2024 3:33 PM EST Pulse 77 05/15/2024 3:33 PM EST Temperature 37.2 C (99 F) 07/05/2022 12:20 PM EST Respiratory Rate 16 07/27/2022 11:13 AM EST Oxygen Saturation 92% 12/06/2022 2:28 PM EDT Inhaled Oxygen Concentration - - Weight 72.8 kg (160 lb 9.6 oz) 05/15/2024 3:33 P M EST Height 175.3 cm (5' 9 ) 05/15/2024 3:33 PM EST Body Mass Index 23.72 05/15/2024 3:33 PM EST Plan of Treatment Upcoming Encounters Date Type Department Care Team (Late st Contact Info) Description 01/28/2025 1:00 PM EDT Office Visit [facility], A Department of [facility] [address] [phone] Elham Ortega MD [address] [address] Health Maintenance Due Date Last Done Comments Depression Screening 1983 DTaP,Tdap and Td Vaccines (1 - Tdap) 1990 Zoster (Shingles) Vaccine (1 of 2) 2021 Influenza Vaccine 01/19/2025 Adult BMI Screening 05/15/2025 05/15/2024 Tobacco Screening 05/15/2025 05/15/2024 Medical Devices Implanted Type Area Silk Screen Cutter Device Identifier Shelf Expiration Date Model / Serial / Lot Pacemaker Pacemaker [employer] Insurance MEDICARE Care Teams Advertising Internship Relationship Specialty Start Date End Date Pcp, [place] [address] PCP - General Family Medicine 09/19/23
--- OUTSIDE RECORDS SUMMARY | 2024-11-05 08:50 | XMS_ITS | Encounter Summary ---
Author Organization [facility] Address [address] [place] [address] Care Team Providers Care Supervisor Pairing And Inspecting Name Role Phone Shani Gama DO Unavailable [phone] Marietta Ruvalcaba MD Primary Care Provider [phone] Jaqueline Yost SUPERVISOR WINTER Unavailable [phone] Shani Gama DO Unavailable [phone] Encounter Details Date Type Department Care Team (Late st Contact Info) Description 06/18/2024 Orders Only [facility] [address] [place] [address] Jaqueline Yost NP [address] [place], [place] [phone] Social History Tobacco Use Types Packs/Day Years [...] 03/08/2024 How often do you attend chur ch or hindu services? Patient declined 03/08/2024 Do you belong to any clubs o r organizations such as yazdanism groups, unions, fraternal or athletic groups, or [...] Recorded Patient Health Questionnaire-2 Score 0 03/12/2024 [facility] Occupat ional [facility] - Occupational Stress [...] were you homeless or living in a skilled nursing (including now)? No 03/08/2024 Comments Unknown Sex and Gender Information Value Date Recorded Sex Assigned at Not on file Legal Sex Female 7:19 PM EDT Gender Identity Not on file Sexual Orientation Not on file documented as of this encounter Plan of Treatment Not on file documented as of this encounter Visit Diagnoses Not on filedocumented in this encounter Care Teams Supervisor Pairing And Inspecting Relationship Specialty Start Date End Date Shani Gama DO [address] [facility] [address] [place] [phone] PCP - ACO Reach 07/20/23 06/26/24 Marietta Ruvalcaba MD [address] [place], [place] [phone] PCP - General Family Medicine 03/03/24 Shani Gama DO [address] [facility] [address] [place] [phone] PCP - ACO Reach 07/04/24 08/21/24 Jaqueline Yost NP [address] [place], [place] [phone] Nurse Practitioner Family Medicine 03/03/24 documented as of this encounter
--- OUTSIDE RECORDS SUMMARY | 2024-11-05 08:50 | XMS_ITS | Encounter Summary ---
Author Organization [facility] Address [address] [place] [address] Care Team Providers Care Informatics Application Analyst Name Role Phone Shani Gama DO Primary Care Provider [phone] Shani Gama DO Unavailable [phone] Marietta Ruvalcaba MD Primary Care Provider Sofia Huff SIEBEL CONSULTANT Unavailable [phone] Jaqueline Yost SIEBEL CONSULTANT Unavailable Shani Gama DO Unavailable [phone] Encounter Details Date Type Department Care Team (Late st Contact Info) Description 11/15/2022 Abstract [facility] [address] [place] [address] Shani Gama, DO [address] [facility] [address] [place] [phone] Social History Tobacco Use Types Packs/Day Years Used Date Smoking Tobacco: Never Assessed Comments Unknown Sex and Gender Information Value Date Recorded Sex Assigned at Not on file Legal Sex Female 7:19 PM EDT Gender Identity Not on file Sexual Orientation Not on file documented as of this encounter Plan of Treatment Not on file documented as of this encounter Visit Diagnoses Not on filedocumented in this encounter Care Teams Informatics Application Analyst Relationship Specialty Start Date End Date Shani Gama DO PCP - General Family Medicine 09/26/22 03/02/24 Shani Gama DO [address] [facility] [address] [place] [phone] PCP - ACO Reach 07/20/23 06/26/24 Marietta Ruvalcaba MD [address] [place], [place] [phone] PCP - General Family Medicine 03/03/24 Shani Gama DO [address] [facility] [address] [place] [phone] PCP - ACO Reach 07/04/24 08/21/24 Sofia Huff NP [address] [facility] [address] [place], [place] [phone] Nurse Practitioner Family Medicine 03/03/24 03/03/24 Jaqueline Yost NP [address] [place] [address] Nurse Practitioner Family Medicine 03/03/24 documented as of this encounter
--- OUTSIDE RECORDS SUMMARY | 2024-11-05 08:50 | XMS_ITS | Encounter Summary ---
Author Organization [facility] Address [address] [place] [address] Care Team Providers Care Crap Shooter Name Role Phone Marietta Ruvalcaba MD Primary Care Provider [phone] Jaqueline Yost VOCATIONAL TECHNICAL EDUCATION DIRECTOR Unavailable [phone] Encounter Details Date Type Department Care Team (Late st Contact Info) Description 09/01/2024 Orders Only [facility] [address] [place] [address] Sofia Carvalho MA Acute nonintractable headache, unspecified headache type Social History Tobacco Use Types Packs/Day [...] often do you attend chur ch or anabaptist services? Patient declined 03/08/2024 Do you belong to any clubs o r organizations such as quaker groups, unions, fraternal or athletic groups, or [...] Recorded Patient Health Questionnaire-2 Score 0 03/12/2024 [facility] Occupat ional Health - Occupational [...] any time in the past 12 m [facility], were you homeless or living in a fpc (including now)? No 03/08/2024 Comments Unknown Sex and Gender Information Value Date Recorded Sex Assigned at Not on file Legal Sex Female 7:19 PM EDT Gender Identity Not on file Sexual Orientation Not on file documented as of this encounter Plan of Treatment Not on file documented as of this encounter Procedures Procedure Name Priority Date/Time Associated Diagnosis Comments CT HEAD WO IV CONTRAST STAT 09/01/2024 8:40 AM EDT Acute nonintractable headache, unspecified headache type documented in this encounter Results * CT head wo IV contrast (09/01/2024 8:40 AM EDT) Jaqueline Yost NP IMG CT PROCEDURES Final Result Performing Organization Address [facility] Co de Phone Number IMAGING documented in this encounter Visit Diagnoses Diagnosis Acute nonintractable headache, unspecified headache type documented in this encounter Care Teams Crap Shooter Relationship Specialty Start Date End Date Marietta Ruvalcaba MD [address] [place] [address] PCP - General Family Medicine 03/03/24 Jaqueline Yost NP [address] [place] [address] Nurse Practitioner Family Medicine 03/03/24 documented as of this encounter
--- OUTSIDE RECORDS SUMMARY | 2024-11-05 08:50 | XMS_ITS | Encounter Summary ---
Author Organization [employer] [employer] Address [id number] [address] [place] [address] Care Team Providers Care [employer] Consultant Name Role Phone Pcp, Not In System Primary Care Provider Unavail able Reason for Visit * Reason Onset Date Comments Home onitor transferred to us from Dr. Willis 07/2022 Encounter Details Date Type Department Care Team (Late st Contact Info) Description [facility]/20[facility]2022 [facility] [address] [place] [phone] Elham Wynn RN Home onitor transferred to us from Dr. Willis Social History Tobacco Use Types Packs/Day Years [...] encounter Miscellaneous Notes * Telephone Encounter - Elham Wynn RN - 11/20/2022 9:28 AM EDT Pt has Biotronik PPM implanted as a replacement device for SSS and Neurocardiogenic syncope by Dr. Willis. She is new to [facility] and saw RBP on 11/15/22 with device check. Pt called today to let her know her home monitor was successfully transferred to us. States she was syncopal on 11/15 after leaving our office while at the [employer]. States she felt like she got up too fast. Bystanders caught her from falling and reported her eyes rolled back. States she was out only briefly and denies any injury. States no further events. No arrhythmias are saved in the device. Pt is scheduled to see JZL on 12/06/22 in [place] to establish following EP. Pt advised to notify us of any further problems. Noted RBP started Norvasc on 11/15/22. Pt questioned about her BP readings and stated she hasn't picked up med at Rx or taken her BP. She does plan to get it today and will monitor her BP. Will update RBP. * Telephone Encounter - Gutierrez Santacruz MD - 11/20/2022 9:28 AM EDT Hope we can transmit any readings from that time pls D/c the norvasc, since the pacemaker barely if at all helped her, her main issue is hypotension, sothe norvasc is not worth the risk in my opinion now hearing that she just had another episode. * Telephone Encounter - Elham Wynn RN - 11/20/2022 9:28 AM EDT There were no saved arrhythmias in her PPM since her follow up on 11/15/22. Pt called and informed not to start the Norvasc. Verbalized understanding and reminded to let us know of any further problems. * Telephone Encounter - FABIÁN Tyler - 11/20/2022 9:28 AM EDT done documented in this encounter Plan of Treatment Upcoming Encounters Date Type Department Care Team (Late st Contact Info) Description 01/28/2025 1:00 PM EDT Office Visit [facility] Department of [facility] [address] [phone] Elham Ortega MD [address] [address] documented as of this encounter Visit Diagnoses Not on filedocumented in this encounter Care Teams [employer] Consultant Relationship Specialty Start Date End Date Pcp, [place] [address] PCP - General Family Medicine 09/19/23 documented as of this encounter
--- OUTSIDE RECORDS SUMMARY | 2024-11-05 08:50 | XMS_ITS | Encounter Summary ---
Author Organization [email or web address] Address [id number] [address] [place] [address] Care Team Providers Care Quality Control Manager Name Role Phone Pcp, Not In System Primary Care Provider Unavail able Encounter Details Date Type Department Care Team (Late st Contact Info) Description 05/16/2024 Orders Only [facility] [address] [place] [address] Iban Betts MD [address] [place] [address] Presence of cardiac pacemaker Social History Tobacco Use Types Packs/Day Years [...] as of this encounter Plan of Treatment Upcoming Encounters Date Type Department Care Team (Late st Contact Info) Description 01/28/2025 1:00 PM EDT Office Visit [facility] Department of [facility] [address] [address] Elham Ortega MD [address] [address] documented as of this encounter Procedures Procedure Name Priority Date/Time Associated Diagnosis Comments DEVICE INTERROGATION Routine 05/15/2024 Presence of cardiac pacemaker documented in this encounter Results * Device Interrogation (05/15/2024) Anatomical Region Laterality Modality Other us Iban Betts MD [facility] ORDERABLES F inal Result documented in this encounter Visit Diagnoses Diagnosis Presence of cardiac pacemaker Cardiac pacemaker in situ documented in this encounter Care Teams Quality Control Manager Relationship Specialty Start Date End Date Pcp, [place] [address] PCP - General Family Medicine 09/19/23 documented as of this encounter
--- NOTE | 2024-11-05 09:00 | RT_ITS ---
[facility] Test Date: 2024-11-05 Pat Name: GILBERTO PAYAN Department: Room: - Gender: Female Probation Supervisor: Mala Herring RRT : 1970 Requested By: Shruti Verdugo Order Number: [id number] Roman MD: Enrrique Zamora Interpretive Statements Pulmonary function testing was completed according to ATS criteria. Findings were considered accurate and reproducible, with exception of DLCO which did not meet ATS standards. Both pre- and post-bronchodilator values utilized for spirometry. Spirometry (based on pre-bronchodilator values): -FEV1/FVC: Reduced @ 66% -FEV1: Normal @ 90% -FVC: Normal @ 106% -FWT10-97%: Reduced @ 59% -There is a partial bronchodilator response in FEV1 which meets >200mL increase but <12% change. Lung volumes by plethysmography (based on post-bronchodilator values): -RV: Increased @ 145% -TLC: Increased @ 127% Diffusion capacity: -DLCO: Mild reduction @ 78% when corrected for Hb 13.5g/dL Impressions: -Spirometry shows a mild obstruction without a significant bronchodilator response. An elevated RV and TLC suggest air trapping and hyperinflation respectively. There is a mildly reduced diffusion capacity. Overall study suggests COPD/emphysema. Clinical correlation required. Electronically Signed On 11-05-2024 18:04:02 EDT by Enrrique Zamora
[2024-11-05 09:08] LABS: Hemoglobin 13.5 g/dL (12.0-16.0)
[2024-11-05] MEDS: ALBUTEROL SULFATE 2.5 MG/3 ML VIAL NEB IH (11:10)
== END 2024-11-05 08:45 | disposition home or self-care (01) ==
LOC: CARD 08:44
PROVIDERS: PCP Nurse Practitioner Family; Visit Provider Internal Medicine Cardiovascular Disease
DX: R06.09 Other forms of dyspnea (principal)
CPT/HCPCS: 36415; 85018; 94060; 94726; 94729